=== PATIENT | male | born 1955 | race Caucasian/White ===

== ENCOUNTER 2020-12-25 21:52 | Inpatient (IN) | payer OTHER ==
[~2020-12-25] VITALS: Ht 180.3 cm; Wt 77.3 kg
[2020-12-25] MEDS ORDERED: OMEP20 PO (22:27)
[2020-12-25] MEDS ORDERED: DIAZ10 PO (22:27)
[2020-12-25] MEDS ORDERED: OXYC5 PO (22:27)
[2020-12-25] MEDS ORDERED: QUET100T PO (22:27)
[2020-12-25] MEDS ORDERED: GABA-1201 PO (22:27)
[2020-12-25] MEDS ORDERED: AMLO-257 PO (22:27)
[2020-12-25] MEDS ORDERED: BUSP15 PO (22:27)
[2020-12-25] MEDS ORDERED: TAMS-13 PO (22:27)
[2020-12-25] MEDS ORDERED: LEVO75 PO (22:27)
[2020-12-25 22:43] LABS: COVID AG,FIA SOURCE NASOPHARYNGEAL
[2020-12-25 23:49] LABS: BASOPHILS % (AUTO) 0.5 % (0.0-2.0); EOSINOPHILS % (AUTO) 2.5 % (1.0-6.0); HEMATOCRIT 31.8 % (41-53); HEMOGLOBIN 10.3 g/dL (13.5-17.5); LYMPHOCYTES # (AUTO) 1.5 K/uL (1.0-4.8); LYMPHOCYTES % (AUTO) 13.9 % (22.0-44.0); MEAN CORPUSCULAR HEMOGLOBIN 25.8 pg (26.0-34.0); MEAN CORPUSCULAR HGB CONC 32.4 G/dL (31.0-37.0); MEAN CORPUSCULAR VOLUME 80 fL (80-100); MONOCYTES % (AUTO) 9.1 % (2.0-9.0); PLATELET COUNT (AUTO) 413 K/uL (150-450); RED BLOOD CELL COUNT(AUTO) 3.99 MIL/uL (4.50-5.90); RED CELL DISTRIBUTION WIDTH 17.3 % (11.5-14.5)
[2020-12-25 23:57] LABS: ANION GAP 10 mmol/L (8-16); CALCIUM, TOTAL 9.5 mg/dL (8.8-10.5); CARBON DIOXIDE 27 mmol/L (22-29); CHLORIDE 103 mmol/L (98-107); CREATININE 0.81 mg/dL (0.60-1.30); GLOMERULAR FILTR. RATE CALC > 60 mL/min (>60); GLUCOSE,RANDOM 105 mg/dL (70-110); POTASSIUM 4.1 mmol/L (3.5-5.1); SODIUM SERUM 140 mmol/L (136-145); UREA NITROGEN, BLOOD 20 mg/dL (7-18)
[2020-12-26 00:01] LABS: INR 1.1 (0.9-1.1); PROTHROMBIN TIME 12.1 SEC (9.4-11.6)
[2020-12-26 00:06] LABS: ALANINE AMINOTRANSFERASE 37 U/L (12-78); ALBUMIN 3.1 g/dL (3.4-5.0); ALKALINE PHOSPHATASE 135 U/L (46-116); ASPARTATE AMINOTRANSFERASE 29 U/L (15-37); BILIRUBIN,TOTAL 0.3 mg/dL (0.1-1.0); CREATINE KINASE, TOTAL ONLY 120 U/L (39-308); PHOSPHORUS 3.9 mg/dL (2.5-4.9); TOTAL PROTEIN, SERUM 8.1 g/dL (6.4-8.2)
[2020-12-26 00:31] LABS: FREE T4 (FREE THYROXINE) 1.13 ng/dL (0.76-1.46); THYROID STIMULATING HORMONE 1.45 uIU/mL (0.36-3.74)
[2020-12-26] MEDS ORDERED: LISI40TA9 PO (12:56)
[2020-12-26] MEDS ORDERED: ACET325T51 PO (12:56)
[2020-12-26] MEDS ORDERED: CYCL10TA16 PO (12:56)
[2020-12-26] MEDS ORDERED: DiphenhydrAMINE HCL 25 MG CAPSULE PO ONE (13:00)
[2020-12-26] MEDS ORDERED: NICOTINE 21 MG/24 HOUR PATCH TD ONE (15:00)
[2020-12-26] MEDS ORDERED: LORazepam 2 MG/ML VIAL IVP ONE (15:00)
[2020-12-26] MEDS ORDERED: HYDROCODONE/ACETAMINOPHEN 5-325 MG TABLET PO PRN (16:30)
[2020-12-26] MEDS ORDERED: ALBUTEROL SULFATE 2.5 MG/0.5 ML NEB SOLUTION NEB PRN (16:30)
[2020-12-26] MEDS ORDERED: ONDANSETRON HCL 4 MG/2 ML VIAL IVP PRN (16:30)
[2020-12-26] MEDS ORDERED: 0.9% SODIUM CHLORIDE 10 ML SYRINGE IVP PRN (16:30)
[2020-12-26] MEDS ORDERED: IPRATROPIUM BROMIDE 0.5 MG/2.5 ML NEB SOLUTION NEB PRN (16:30)
[2020-12-26] MEDS ORDERED: THIAMINE 100 MG TABLET PO SCH (17:00)
[2020-12-26 18:13] VITALS: BP 161/101
[2020-12-26] MEDS: MULTIVITAMINS, THERAPEUTIC TABLET PO SCH (18:13)
[2020-12-26] MEDS: FOLIC ACID 1 MG TABLET PO SCH (18:13)
[2020-12-26] MEDS ORDERED: METOPROLOL TARTRATE 25 MG TABLET PO ONE (18:30)
[2020-12-26 19:59] VITALS: BP 130/87
[2020-12-26] MEDS: GABAPENTIN 100 MG CAPSULE PO SCH (20:02)
[2020-12-26] MEDS: BusPIRone HCL 15 MG TABLET PO SCH (20:02)
[2020-12-26 21:00] VITALS: BP 130/87
[2020-12-26] MEDS ORDERED: LORazepam 2 MG TABLET PO PRN (21:30)
[2020-12-26] MEDS ORDERED: LORazepam 2 MG/ML VIAL IM ONE (21:30)
[2020-12-26] MEDS ORDERED: THIAMINE 100 MG/ML 2 ML VIAL IM ONE (22:00)
[2020-12-26] MEDS: 1: MAGNESIUM SULFATE 2 GM, MVI, ADULT NO.1 WITH VIT K 10 ML, THIAMINE 100 MG, FOLIC ACID IV SCH ×5 (22:38)
[2020-12-26 22:45] LABS: APPEARANCE,URINE TURBID (CLEAR); BILIRUBIN,URINE NEGATIVE (NEGATIVE); GLUCOSE, URINE (UA) NEGATIVE (NEGATIVE); KETONES,URINE TRACE mg/dL (NEGATIVE); LEUKOCYTE ESTERASE ,URINE LARGE (NEGATIVE); NITRATE,URINE POSITIVE (NEGATIVE); OCCULT BLOOD,URINE SMALL (NEGATIVE); PROTEIN,URINE TRACE (NEGATIVE)
[2020-12-26 22:55] LABS: AMPHET/METH SCREEN,URINE NEGATIVE (NEGATIVE); BARBITURATE SCREEN, URINE NEGATIVE (NEGATIVE); BENZODIAZEPINES SCREEN,URINE POSITIVE (NEGATIVE); CANNABINOID SCREEN,URINE NEGATIVE (NEGATIVE); COCAINE SCREEN,URINE NEGATIVE (NEGATIVE); METHADONE SCREEN, URINE NEGATIVE (NEGATIVE); OPIATE SCREEN,URINE NEGATIVE (NEGATIVE)
[2020-12-26 23:09] LABS: PHENCYCLIDINE SCREEN,URINE NEGATIVE (NEGATIVE)
[2020-12-26 23:25] LABS: BACTERIA,URINE Moderate /HPF (None Seen); WBC,URINE >100 /HPF (0-5)
[2020-12-26 23:26] LABS: SQUAMOUS EPITHELIAL CELL,UR Rare /LPF (None Seen)
[2020-12-26] MEDS: ACETAMINOPHEN 325 MG TABLET PO PRN (23:33)
[2020-12-27] MEDS ORDERED: LORazepam 2 MG/ML VIAL IVP ONE (00:15)
[2020-12-27] MEDS ORDERED: HALOPERIDOL LACTATE 5 MG/ML VIAL IM ONE (00:15)
[2020-12-27] MEDS ORDERED: DiphenhydrAMINE HCL 50 MG/ML VIAL IVP ONE (00:15)
[2020-12-27 05:00] VITALS: BP 132/89
[2020-12-27 06:00] VITALS: BP 132/89
[2020-12-27] MEDS: LEVOTHYROXINE SODIUM 75 MCG TABLET PO SCH (06:11)
[2020-12-27] MEDS ORDERED: LORazepam 2 MG TABLET PO PRN (07:00)
[2020-12-27 07:02] LABS: EOSINOPHILS % (AUTO) 3.7 % (1.0-6.0); HEMATOCRIT 31.9 % (41-53); HEMOGLOBIN 10.2 g/dL (13.5-17.5); LYMPHOCYTES # (AUTO) 2.4 K/uL (1.0-4.8); LYMPHOCYTES % (AUTO) 27.3 % (22.0-44.0); MEAN CORPUSCULAR HEMOGLOBIN 25.3 pg (26.0-34.0); MEAN CORPUSCULAR HGB CONC 31.9 G/dL (31.0-37.0); MEAN CORPUSCULAR VOLUME 79 fL (80-100); NEUTROPHILS # (AUTO) 5.1 K/uL (1.8-7.7); PLATELET COUNT (AUTO) 425 K/uL (150-450); RED BLOOD CELL COUNT(AUTO) 4.03 MIL/uL (4.50-5.90); RED CELL DISTRIBUTION WIDTH 17.4 % (11.5-14.5)
[2020-12-27 07:31] LABS: ALANINE AMINOTRANSFERASE 29 U/L (12-78); ALBUMIN 2.8 g/dL (3.4-5.0); ALKALINE PHOSPHATASE 123 U/L (46-116); ANION GAP 10 mmol/L (8-16); BILIRUBIN,TOTAL 0.3 mg/dL (0.1-1.0); CALCIUM, TOTAL 9.3 mg/dL (8.8-10.5); CARBON DIOXIDE 24 mmol/L (22-29); CHLORIDE 105 mmol/L (98-107); CREATININE 0.73 mg/dL (0.60-1.30); FREE T4 (FREE THYROXINE) 0.96 ng/dL (0.76-1.46); GLOMERULAR FILTR. RATE CALC > 60 mL/min (>60); GLUCOSE,RANDOM 86 mg/dL (70-110); POTASSIUM 3.8 mmol/L (3.5-5.1); SODIUM SERUM 139 mmol/L (136-145); THYROID STIMULATING HORMONE 3.01 uIU/mL (0.36-3.74); TOTAL PROTEIN, SERUM 7.8 g/dL (6.4-8.2); UREA NITROGEN, BLOOD 13 mg/dL (7-18)
[2020-12-27 07:38] VITALS: BP 128/86
[2020-12-27 07:51] LABS: ASPARTATE AMINOTRANSFERASE 27 U/L (15-37)
[2020-12-27] MEDS: 1: MAGNESIUM SULFATE 2 GM, MVI, ADULT NO.1 WITH VIT K 10 ML, THIAMINE 100 MG, FOLIC ACID IV SCH ×10 (08:56→18:31)
[2020-12-27] MEDS: FOLIC ACID 1 MG TABLET PO SCH (09:13)
[2020-12-27] MEDS: THIAMINE 100 MG TABLET PO SCH (09:13)
[2020-12-27] MEDS: GABAPENTIN 100 MG CAPSULE PO SCH ×3 (09:13→20:29)
[2020-12-27] MEDS: LORazepam 2 MG TABLET PO SCH ×4 (09:13→20:30)
[2020-12-27] MEDS: MULTIVITAMINS, THERAPEUTIC TABLET PO SCH (09:13)
[2020-12-27] MEDS: PANTOPRAZOLE SODIUM 40 MG DR TABLET PO SCH (09:13)
[2020-12-27] MEDS: AmLODIPine BESYLATE 5 MG TABLET PO SCH (09:14)
[2020-12-27] MEDS: VITAMIN B COMP/VIT C/FOLIC ACID CAPSULE PO SCH ×2 (09:14→20:30)
[2020-12-27] MEDS: NICOTINE 21 MG/24 HOUR PATCH TD SCH (09:14)
[2020-12-27] MEDS: BusPIRone HCL 15 MG TABLET PO SCH ×2 (09:14→20:30)
[2020-12-27] MEDS: TAMSULOSIN HCL 0.4 MG CAPSULE PO SCH (09:14)
[2020-12-27] MEDS: CefTRIAXone 1 GM/DEXTROSE 50 ML IV SCH (14:39)
[2020-12-27 15:14] VITALS: BP 142/62
[2020-12-27 19:30] VITALS: BP 111/77
[2020-12-27] MEDS: LORazepam 2 MG/ML VIAL IVP PRN (21:34)
[2020-12-27] MEDS: KETOROLAC TROMETHAMINE 30 MG/ML VIAL IVP PRN (22:07)
[2020-12-28 04:45] VITALS: BP 138/92
[2020-12-28] MEDS: 1: MAGNESIUM SULFATE 2 GM, MVI, ADULT NO.1 WITH VIT K 10 ML, THIAMINE 100 MG, FOLIC ACID IV SCH ×10 (04:52→17:22)
[2020-12-28] MEDS: LEVOTHYROXINE SODIUM 75 MCG TABLET PO SCH (05:32)
[2020-12-28 05:50] LABS: BASOPHILS % (AUTO) 0.8 % (0.0-2.0); EOSINOPHILS % (AUTO) 2.9 % (1.0-6.0); HEMATOCRIT 34.4 % (41-53); HEMOGLOBIN 11.1 g/dL (13.5-17.5); LYMPHOCYTES # (AUTO) 2.2 K/uL (1.0-4.8); LYMPHOCYTES % (AUTO) 26.8 % (22.0-44.0); MEAN CORPUSCULAR HEMOGLOBIN 25.6 pg (26.0-34.0); MEAN CORPUSCULAR HGB CONC 32.3 G/dL (31.0-37.0); MEAN CORPUSCULAR VOLUME 79 fL (80-100); MONOCYTES # (AUTO) 0.8 K/uL (0.1-1.0); MONOCYTES % (AUTO) 9.7 % (2.0-9.0); NEUTROPHILS # (AUTO) 4.8 K/uL (1.8-7.7); NEUTROPHILS % (AUTO) 59.8 % (40.0-70.0); PLATELET COUNT (AUTO) 380 K/uL (150-450); RED BLOOD CELL COUNT(AUTO) 4.34 MIL/uL (4.50-5.90)
[2020-12-28 06:00] LABS: ANION GAP 8 mmol/L (8-16); CALCIUM, TOTAL 9.3 mg/dL (8.8-10.5); CARBON DIOXIDE 27 mmol/L (22-29); CHLORIDE 104 mmol/L (98-107); CREATININE 0.76 mg/dL (0.60-1.30); GLOMERULAR FILTR. RATE CALC > 60 mL/min (>60); GLUCOSE,RANDOM 107 mg/dL (70-110); POTASSIUM 3.9 mmol/L (3.5-5.1); SODIUM SERUM 139 mmol/L (136-145); UREA NITROGEN, BLOOD 11 mg/dL (7-18)
[2020-12-28] MEDS: KETOROLAC TROMETHAMINE 30 MG/ML VIAL IVP PRN ×2 (07:43→20:59)
[2020-12-28] MEDS: TAMSULOSIN HCL 0.4 MG CAPSULE PO SCH (08:36)
[2020-12-28] MEDS: PANTOPRAZOLE SODIUM 40 MG DR TABLET PO SCH (08:36)
[2020-12-28] MEDS: GABAPENTIN 100 MG CAPSULE PO SCH ×3 (08:36→20:25)
[2020-12-28] MEDS: BusPIRone HCL 15 MG TABLET PO SCH ×2 (08:36→20:25)
[2020-12-28] MEDS: THIAMINE 100 MG TABLET PO SCH (08:36)
[2020-12-28] MEDS: AmLODIPine BESYLATE 5 MG TABLET PO SCH (08:36)
[2020-12-28] MEDS: FOLIC ACID 1 MG TABLET PO SCH (08:36)
[2020-12-28] MEDS: VITAMIN B COMP/VIT C/FOLIC ACID CAPSULE PO SCH ×2 (08:36→20:25)
[2020-12-28] MEDS: MULTIVITAMINS, THERAPEUTIC TABLET PO SCH (08:37)
[2020-12-28] MEDS: LORazepam 2 MG TABLET PO SCH ×4 (08:37→20:25)
[2020-12-28] MEDS: NICOTINE 21 MG/24 HOUR PATCH TD SCH ×2 (08:41→08:53)
[2020-12-28] MEDS: ACETAMINOPHEN 325 MG TABLET PO PRN ×2 (10:20→20:26)
[2020-12-28] MEDS: LORazepam 2 MG/ML VIAL IVP PRN ×2 (10:52→23:08)
[2020-12-28 15:53] VITALS: BP 147/98
[2020-12-28] MEDS: CefTRIAXone 1 GM/DEXTROSE 50 ML IV SCH (16:34)
[2020-12-28 19:37] VITALS: BP 127/88
[2020-12-29] MEDS: 1: MAGNESIUM SULFATE 2 GM, MVI, ADULT NO.1 WITH VIT K 10 ML, THIAMINE 100 MG, FOLIC ACID IV SCH ×15 (03:01→22:18)
[2020-12-29] MEDS: KETOROLAC TROMETHAMINE 30 MG/ML VIAL IVP PRN (04:26)
[2020-12-29 05:15] VITALS: BP 152/88
[2020-12-29] MEDS: LEVOTHYROXINE SODIUM 75 MCG TABLET PO SCH (06:01)
[2020-12-29 10:40] VITALS: BP 143/86
[2020-12-29] MEDS: BusPIRone HCL 15 MG TABLET PO SCH ×2 (10:43→19:47)
[2020-12-29] MEDS: THIAMINE 100 MG TABLET PO SCH (10:43)
[2020-12-29] MEDS: VITAMIN B COMP/VIT C/FOLIC ACID CAPSULE PO SCH ×2 (10:43→19:48)
[2020-12-29] MEDS: MULTIVITAMINS, THERAPEUTIC TABLET PO SCH (10:43)
[2020-12-29] MEDS: TAMSULOSIN HCL 0.4 MG CAPSULE PO SCH (10:43)
[2020-12-29] MEDS: PANTOPRAZOLE SODIUM 40 MG DR TABLET PO SCH (10:43)
[2020-12-29] MEDS: FOLIC ACID 1 MG TABLET PO SCH (10:43)
[2020-12-29] MEDS: AmLODIPine BESYLATE 5 MG TABLET PO SCH (10:43)
[2020-12-29] MEDS: GABAPENTIN 100 MG CAPSULE PO SCH ×3 (10:43→19:47)
[2020-12-29] MEDS: LORazepam 1 MG TABLET PO SCH ×4 (10:44→19:47)
[2020-12-29] MEDS: NICOTINE 21 MG/24 HOUR PATCH TD SCH (10:44)
[2020-12-29] MEDS: CefTRIAXone 1 GM/DEXTROSE 50 ML IV SCH (14:10)
[2020-12-29] MEDS ORDERED: *CLINICAL-RX DOSING [ENTER DRUG IN COMMENTS] CLINICAL ONE (20:15)
[2020-12-29 20:40] VITALS: BP 134/85
[2020-12-29] MEDS: CefoTEtan DISOD 1 GM/DEXTROSE 50 ML IV SCH (22:18)
[2020-12-29] MEDS: LORazepam 1 MG TABLET PO PRN (23:14)
[2020-12-30] MEDS: ACETAMINOPHEN 325 MG TABLET PO PRN ×4 (04:29→20:20)
[2020-12-30 04:54] VITALS: BP 154/96
[2020-12-30] MEDS: LEVOTHYROXINE SODIUM 75 MCG TABLET PO SCH (04:58)
[2020-12-30] MEDS: LORazepam 1 MG TABLET PO PRN ×5 (04:58→22:29)
[2020-12-30 07:22] VITALS: BP 139/90
[2020-12-30] MEDS: VITAMIN B COMP/VIT C/FOLIC ACID CAPSULE PO SCH ×2 (08:19→20:19)
[2020-12-30] MEDS: AmLODIPine BESYLATE 5 MG TABLET PO SCH (08:19)
[2020-12-30] MEDS: GABAPENTIN 100 MG CAPSULE PO SCH ×3 (08:19→20:19)
[2020-12-30] MEDS: FOLIC ACID 1 MG TABLET PO SCH (08:20)
[2020-12-30] MEDS: MULTIVITAMINS, THERAPEUTIC TABLET PO SCH (08:20)
[2020-12-30] MEDS: PANTOPRAZOLE SODIUM 40 MG DR TABLET PO SCH (08:20)
[2020-12-30] MEDS: THIAMINE 100 MG TABLET PO SCH (08:20)
[2020-12-30] MEDS: CefoTEtan DISOD 1 GM/DEXTROSE 50 ML IV SCH ×2 (08:21→20:19)
[2020-12-30] MEDS: BusPIRone HCL 15 MG TABLET PO SCH ×2 (08:21→20:19)
[2020-12-30] MEDS: 1: MAGNESIUM SULFATE 2 GM, MVI, ADULT NO.1 WITH VIT K 10 ML, THIAMINE 100 MG, FOLIC ACID IV SCH ×10 (08:24→15:51)
[2020-12-30] MEDS: NICOTINE 21 MG/24 HOUR PATCH TD SCH (08:24)
[2020-12-30] MEDS: TAMSULOSIN HCL 0.4 MG CAPSULE PO SCH (09:10)
[2020-12-30 15:30] VITALS: BP 147/91
[2020-12-30 19:30] VITALS: BP 138/88
[2020-12-30] MEDS: MORPHINE SULFATE 2 MG/ML SYRINGE IVP PRN (22:30)
[2020-12-31] MEDS: MORPHINE SULFATE 2 MG/ML SYRINGE IVP PRN ×4 (02:38→22:37)
[2020-12-31 04:00] VITALS: BP 131/86
[2020-12-31] MEDS: LEVOTHYROXINE SODIUM 75 MCG TABLET PO SCH (06:01)
[2020-12-31 07:25] VITALS: BP 149/93
[2020-12-31] MEDS: GABAPENTIN 100 MG CAPSULE PO SCH ×3 (09:08→19:51)
[2020-12-31] MEDS: BusPIRone HCL 15 MG TABLET PO SCH ×2 (09:08→19:51)
[2020-12-31] MEDS: CefoTEtan DISOD 1 GM/DEXTROSE 50 ML IV SCH ×2 (09:08→19:51)
[2020-12-31] MEDS: MULTIVITAMINS, THERAPEUTIC TABLET PO SCH (09:08)
[2020-12-31] MEDS: NICOTINE 21 MG/24 HOUR PATCH TD SCH (09:08)
[2020-12-31] MEDS: VITAMIN B COMP/VIT C/FOLIC ACID CAPSULE PO SCH ×2 (09:08→19:51)
[2020-12-31] MEDS: FOLIC ACID 1 MG TABLET PO SCH (09:08)
[2020-12-31] MEDS: TAMSULOSIN HCL 0.4 MG CAPSULE PO SCH (09:09)
[2020-12-31] MEDS: AmLODIPine BESYLATE 5 MG TABLET PO SCH (09:09)
[2020-12-31] MEDS: PANTOPRAZOLE SODIUM 40 MG DR TABLET PO SCH (09:09)
[2020-12-31] MEDS: THIAMINE 100 MG TABLET PO SCH (09:09)
[2020-12-31 14:04] LABS: BASOPHILS % (AUTO) 0.6 % (0.0-2.0); EOSINOPHILS % (AUTO) 2.1 % (1.0-6.0); HEMATOCRIT 34.6 % (41-53); HEMOGLOBIN 11.1 g/dL (13.5-17.5); LYMPHOCYTES # (AUTO) 1.5 K/uL (1.0-4.8); LYMPHOCYTES % (AUTO) 15.5 % (22.0-44.0); MEAN CORPUSCULAR HEMOGLOBIN 25.6 pg (26.0-34.0); MEAN CORPUSCULAR HGB CONC 32.1 G/dL (31.0-37.0); MEAN CORPUSCULAR VOLUME 80 fL (80-100); MONOCYTES # (AUTO) 0.9 K/uL (0.1-1.0); MONOCYTES % (AUTO) 8.9 % (2.0-9.0); NEUTROPHILS # (AUTO) 7.1 K/uL (1.8-7.7); NEUTROPHILS % (AUTO) 72.9 % (40.0-70.0); PLATELET COUNT (AUTO) 356 K/uL (150-450); RED BLOOD CELL COUNT(AUTO) 4.34 MIL/uL (4.50-5.90)
[2020-12-31 14:12] LABS: ANION GAP 10 mmol/L (8-16); CALCIUM, TOTAL 9.6 mg/dL (8.8-10.5); CARBON DIOXIDE 25 mmol/L (22-29); CHLORIDE 104 mmol/L (98-107); CREATININE 0.82 mg/dL (0.60-1.30); GLOMERULAR FILTR. RATE CALC > 60 mL/min (>60); GLUCOSE,RANDOM 91 mg/dL (70-110); POTASSIUM 4.1 mmol/L (3.5-5.1); SODIUM SERUM 139 mmol/L (136-145); UREA NITROGEN, BLOOD 5 mg/dL (7-18)
[2020-12-31 14:18] LABS: ALANINE AMINOTRANSFERASE 17 U/L (12-78); ALKALINE PHOSPHATASE 114 U/L (46-116); ASPARTATE AMINOTRANSFERASE 13 U/L (15-37); BILIRUBIN,TOTAL 0.3 mg/dL (0.1-1.0); TOTAL PROTEIN, SERUM 7.9 g/dL (6.4-8.2)
[2020-12-31 15:34] VITALS: BP 100/65
[2020-12-31] MEDS: DOCUSATE SODIUM 100 MG CAPSULE PO PRN (16:08)
[2020-12-31] MEDS: ACETAMINOPHEN 325 MG TABLET PO PRN (16:09)
[2020-12-31 19:45] VITALS: BP 135/89
[2020-12-31] MEDS: LORazepam 2 MG/ML VIAL IVP PRN (19:51)
[2020-12-31] MEDS ORDERED: SODIUM CHLORIDE 0.9% 250 ML IV ONE (20:01)
[2020-12-31 22:42] VITALS: BP 133/85
[2021-01-01] MEDS: MORPHINE SULFATE 2 MG/ML SYRINGE IVP PRN ×5 (02:25→21:01)
[2021-01-01 02:27] VITALS: BP 141/93
[2021-01-01] MEDS: LEVOTHYROXINE SODIUM 75 MCG TABLET PO SCH ×2 (06:01→06:03)
[2021-01-01 07:57] VITALS: BP 151/93
[2021-01-01] MEDS: AmLODIPine BESYLATE 5 MG TABLET PO SCH (08:22)
[2021-01-01] MEDS: VITAMIN B COMP/VIT C/FOLIC ACID CAPSULE PO SCH ×2 (08:22→19:49)
[2021-01-01] MEDS: TAMSULOSIN HCL 0.4 MG CAPSULE PO SCH (08:22)
[2021-01-01] MEDS: FOLIC ACID 1 MG TABLET PO SCH (08:22)
[2021-01-01] MEDS: GABAPENTIN 100 MG CAPSULE PO SCH ×3 (08:22→19:49)
[2021-01-01] MEDS: PANTOPRAZOLE SODIUM 40 MG DR TABLET PO SCH (08:22)
[2021-01-01] MEDS: DOCUSATE SODIUM 100 MG CAPSULE PO PRN ×2 (08:22→19:49)
[2021-01-01] MEDS: THIAMINE 100 MG TABLET PO SCH (08:22)
[2021-01-01] MEDS: MULTIVITAMINS, THERAPEUTIC TABLET PO SCH (08:22)
[2021-01-01] MEDS: BusPIRone HCL 15 MG TABLET PO SCH ×2 (08:23→19:49)
[2021-01-01] MEDS: CefoTEtan DISOD 1 GM/DEXTROSE 50 ML IV SCH ×2 (08:26→20:46)
[2021-01-01] MEDS: NICOTINE 21 MG/24 HOUR PATCH TD SCH (09:00)
[2021-01-01 16:48] VITALS: BP 122/72
[2021-01-01 19:52] VITALS: BP 134/89
[2021-01-01] MEDS: LORazepam 2 MG/ML VIAL IVP PRN (21:01)
[2021-01-02] MEDS: MORPHINE SULFATE 2 MG/ML SYRINGE IVP PRN ×5 (01:54→21:03)
[2021-01-02 05:35] VITALS: BP 105/68
[2021-01-02] MEDS: LEVOTHYROXINE SODIUM 75 MCG TABLET PO SCH (05:47)
[2021-01-02] MEDS: CefoTEtan DISOD 1 GM/DEXTROSE 50 ML IV SCH ×2 (09:00→21:05)
[2021-01-02] MEDS: BusPIRone HCL 15 MG TABLET PO SCH ×2 (09:00→21:03)
[2021-01-02] MEDS: GABAPENTIN 100 MG CAPSULE PO SCH ×3 (10:00→21:02)
[2021-01-02] MEDS: AmLODIPine BESYLATE 5 MG TABLET PO SCH (10:00)
[2021-01-02] MEDS: FOLIC ACID 1 MG TABLET PO SCH (10:00)
[2021-01-02] MEDS: NICOTINE 21 MG/24 HOUR PATCH TD SCH (10:00)
[2021-01-02] MEDS: TAMSULOSIN HCL 0.4 MG CAPSULE PO SCH (10:00)
[2021-01-02] MEDS: MULTIVITAMINS, THERAPEUTIC TABLET PO SCH (10:00)
[2021-01-02] MEDS: THIAMINE 100 MG TABLET PO SCH (10:00)
[2021-01-02] MEDS: PANTOPRAZOLE SODIUM 40 MG DR TABLET PO SCH (10:00)
[2021-01-02] MEDS: VITAMIN B COMP/VIT C/FOLIC ACID CAPSULE PO SCH ×2 (10:00→21:02)
[2021-01-02 10:41] VITALS: BP 125/79
[2021-01-02 16:02] VITALS: BP 97/52
[2021-01-02 20:24] VITALS: BP 143/71
[2021-01-03] MEDS: MORPHINE SULFATE 2 MG/ML SYRINGE IVP PRN ×5 (01:03→20:27)
[2021-01-03 05:34] VITALS: BP 135/69
[2021-01-03] MEDS: LEVOTHYROXINE SODIUM 75 MCG TABLET PO SCH (06:05)
[2021-01-03 08:00] VITALS: BP 138/86
[2021-01-03] MEDS: NICOTINE 21 MG/24 HOUR PATCH TD SCH (09:58)
[2021-01-03] MEDS: CefoTEtan DISOD 1 GM/DEXTROSE 50 ML IV SCH ×2 (09:58→20:26)
[2021-01-03] MEDS: THIAMINE 100 MG TABLET PO SCH (09:59)
[2021-01-03] MEDS: TAMSULOSIN HCL 0.4 MG CAPSULE PO SCH (09:59)
[2021-01-03] MEDS: PANTOPRAZOLE SODIUM 40 MG DR TABLET PO SCH (09:59)
[2021-01-03] MEDS: BusPIRone HCL 15 MG TABLET PO SCH ×2 (09:59→20:26)
[2021-01-03] MEDS: AmLODIPine BESYLATE 5 MG TABLET PO SCH (09:59)
[2021-01-03] MEDS: GABAPENTIN 100 MG CAPSULE PO SCH ×3 (09:59→20:27)
[2021-01-03] MEDS: DOCUSATE SODIUM 100 MG CAPSULE PO PRN (09:59)
[2021-01-03] MEDS: FOLIC ACID 1 MG TABLET PO SCH (09:59)
[2021-01-03] MEDS: MULTIVITAMINS, THERAPEUTIC TABLET PO SCH (09:59)
[2021-01-03] MEDS ORDERED: SODIUM CHLORIDE 0.9% 500 ML IV ONE (10:06)
[2021-01-03 15:42] VITALS: BP 123/78
[2021-01-03 19:27] VITALS: BP 124/85
[2021-01-03] MEDS: SENNA/DOCUSATE SODIUM 8.6-50 MG TABLET PO SCH (20:26)
[2021-01-03] MEDS ORDERED: LORazepam 2 MG/ML VIAL IVP ONE (22:00)
[2021-01-04] MEDS: MORPHINE SULFATE 2 MG/ML SYRINGE IVP PRN ×4 (02:08→15:33)
[2021-01-04 05:08] VITALS: BP 151/90
[2021-01-04] MEDS: LEVOTHYROXINE SODIUM 75 MCG TABLET PO SCH (06:00)
[2021-01-04 06:28] LABS: BASOPHILS % (AUTO) 1.1 % (0.0-2.0); EOSINOPHILS % (AUTO) 4.1 % (1.0-6.0); HEMATOCRIT 31.7 % (41-53); HEMOGLOBIN 10.4 g/dL (13.5-17.5); LYMPHOCYTES # (AUTO) 2.2 K/uL (1.0-4.8); LYMPHOCYTES % (AUTO) 24.1 % (22.0-44.0); MEAN CORPUSCULAR HEMOGLOBIN 26.1 pg (26.0-34.0); MEAN CORPUSCULAR HGB CONC 32.7 G/dL (31.0-37.0); MEAN CORPUSCULAR VOLUME 80 fL (80-100); MONOCYTES # (AUTO) 1.1 K/uL (0.1-1.0); MONOCYTES % (AUTO) 12.3 % (2.0-9.0); NEUTROPHILS # (AUTO) 5.4 K/uL (1.8-7.7); NEUTROPHILS % (AUTO) 58.4 % (40.0-70.0); PLATELET COUNT (AUTO) 392 K/uL (150-450); RED BLOOD CELL COUNT(AUTO) 3.98 MIL/uL (4.50-5.90); RED CELL DISTRIBUTION WIDTH 18.3 % (11.5-14.5)
[2021-01-04 06:43] LABS: ALANINE AMINOTRANSFERASE 19 U/L (12-78); ALBUMIN 2.8 g/dL (3.4-5.0); ALKALINE PHOSPHATASE 92 U/L (46-116); ANION GAP 7 mmol/L (8-16); ASPARTATE AMINOTRANSFERASE 16 U/L (15-37); BILIRUBIN,TOTAL 0.3 mg/dL (0.1-1.0); CALCIUM, TOTAL 9.6 mg/dL (8.8-10.5); CARBON DIOXIDE 27 mmol/L (22-29); CHLORIDE 102 mmol/L (98-107); CREATININE 0.74 mg/dL (0.60-1.30); GLOMERULAR FILTR. RATE CALC > 60 mL/min (>60); GLUCOSE,RANDOM 100 mg/dL (70-110); POTASSIUM 4.2 mmol/L (3.5-5.1); SODIUM SERUM 136 mmol/L (136-145); TOTAL PROTEIN, SERUM 7.8 g/dL (6.4-8.2); UREA NITROGEN, BLOOD 10 mg/dL (7-18)
[2021-01-04 08:17] VITALS: BP 110/73
[2021-01-04] MEDS: CefoTEtan DISOD 1 GM/DEXTROSE 50 ML IV SCH ×2 (09:06→21:00)
[2021-01-04] MEDS: NICOTINE 21 MG/24 HOUR PATCH TD SCH (09:06)
[2021-01-04] MEDS: TAMSULOSIN HCL 0.4 MG CAPSULE PO SCH (09:07)
[2021-01-04] MEDS: AmLODIPine BESYLATE 5 MG TABLET PO SCH (09:07)
[2021-01-04] MEDS: FOLIC ACID 1 MG TABLET PO SCH (09:07)
[2021-01-04] MEDS: MULTIVITAMINS, THERAPEUTIC TABLET PO SCH (09:07)
[2021-01-04] MEDS: BusPIRone HCL 15 MG TABLET PO SCH ×2 (09:07→21:03)
[2021-01-04] MEDS: SENNA/DOCUSATE SODIUM 8.6-50 MG TABLET PO SCH ×2 (09:07→21:03)
[2021-01-04] MEDS: GABAPENTIN 100 MG CAPSULE PO SCH ×3 (09:07→21:03)
[2021-01-04] MEDS: PANTOPRAZOLE SODIUM 40 MG DR TABLET PO SCH (09:07)
[2021-01-04] MEDS: THIAMINE 100 MG TABLET PO SCH (09:07)
[2021-01-04] MEDS: QUEtiapine FUMARATE 100 MG TABLET PO SCH (09:20)
[2021-01-04 15:12] VITALS: BP 115/76
[2021-01-04] MEDS: QUEtiapine FUMARATE 300 MG TABLET PO SCH (21:03)
[2021-01-04 21:12] VITALS: BP 130/78
[2021-01-05] MEDS: MORPHINE SULFATE 2 MG/ML SYRINGE IVP PRN ×2 (03:01→10:30)
[2021-01-05 03:41] VITALS: BP 123/71
[2021-01-05 06:15] LABS: BASOPHILS % (AUTO) 0.8 % (0.0-2.0); EOSINOPHILS % (AUTO) 4.7 % (1.0-6.0); HEMATOCRIT 32.2 % (41-53); HEMOGLOBIN 10.2 g/dL (13.5-17.5); LYMPHOCYTES % (AUTO) 24.9 % (22.0-44.0); MEAN CORPUSCULAR HEMOGLOBIN 25.5 pg (26.0-34.0); MEAN CORPUSCULAR HGB CONC 31.6 G/dL (31.0-37.0); MEAN CORPUSCULAR VOLUME 81 fL (80-100); MONOCYTES # (AUTO) 1.1 K/uL (0.1-1.0); MONOCYTES % (AUTO) 14.2 % (2.0-9.0); NEUTROPHILS # (AUTO) 4.5 K/uL (1.8-7.7); NEUTROPHILS % (AUTO) 55.4 % (40.0-70.0); PLATELET COUNT (AUTO) 323 K/uL (150-450); RED BLOOD CELL COUNT(AUTO) 3.99 MIL/uL (4.50-5.90); RED CELL DISTRIBUTION WIDTH 18.3 % (11.5-14.5)
[2021-01-05 06:36] LABS: ALANINE AMINOTRANSFERASE 18 U/L (12-78); ALBUMIN 2.7 g/dL (3.4-5.0); ALKALINE PHOSPHATASE 86 U/L (46-116); ANION GAP 8 mmol/L (8-16); ASPARTATE AMINOTRANSFERASE 13 U/L (15-37); BILIRUBIN,TOTAL 0.2 mg/dL (0.1-1.0); CALCIUM, TOTAL 9.5 mg/dL (8.8-10.5); CARBON DIOXIDE 28 mmol/L (22-29); CHLORIDE 102 mmol/L (98-107); CREATININE 0.85 mg/dL (0.60-1.30); GLOMERULAR FILTR. RATE CALC > 60 mL/min (>60); GLUCOSE,RANDOM 130 mg/dL (70-110); POTASSIUM 3.9 mmol/L (3.5-5.1); SODIUM SERUM 138 mmol/L (136-145); TOTAL PROTEIN, SERUM 7.6 g/dL (6.4-8.2); UREA NITROGEN, BLOOD 15 mg/dL (7-18)
[2021-01-05] MEDS: LEVOTHYROXINE SODIUM 75 MCG TABLET PO SCH (06:36)
[2021-01-05] MEDS: CefoTEtan DISOD 1 GM/DEXTROSE 50 ML IV SCH ×2 (08:41→20:16)
[2021-01-05 10:37] VITALS: BP 131/78
[2021-01-05] MEDS: TAMSULOSIN HCL 0.4 MG CAPSULE PO SCH (11:00)
[2021-01-05] MEDS: QUEtiapine FUMARATE 100 MG TABLET PO SCH (11:00)
[2021-01-05] MEDS: AmLODIPine BESYLATE 5 MG TABLET PO SCH (11:00)
[2021-01-05] MEDS: BusPIRone HCL 15 MG TABLET PO SCH ×2 (11:00→20:17)
[2021-01-05] MEDS: FOLIC ACID 1 MG TABLET PO SCH (11:00)
[2021-01-05] MEDS: MULTIVITAMINS, THERAPEUTIC TABLET PO SCH (11:00)
[2021-01-05] MEDS: THIAMINE 100 MG TABLET PO SCH (11:00)
[2021-01-05] MEDS: NICOTINE 21 MG/24 HOUR PATCH TD SCH (11:00)
[2021-01-05] MEDS: PANTOPRAZOLE SODIUM 40 MG DR TABLET PO SCH (11:00)
[2021-01-05] MEDS: GABAPENTIN 100 MG CAPSULE PO SCH ×3 (11:00→20:17)
[2021-01-05] MEDS: SENNA/DOCUSATE SODIUM 8.6-50 MG TABLET PO SCH ×2 (11:00→21:00)
[2021-01-05 15:07] VITALS: BP 126/64
[2021-01-05] MEDS: QUEtiapine FUMARATE 300 MG TABLET PO SCH (20:17)
[2021-01-05 20:30] VITALS: BP 133/79
[2021-01-06] MEDS: ACETAMINOPHEN 325 MG TABLET PO PRN ×4 (02:37→20:31)
[2021-01-06 04:56] VITALS: BP 147/88
[2021-01-06] MEDS: LEVOTHYROXINE SODIUM 75 MCG TABLET PO SCH (05:57)
[2021-01-06 07:35] LABS: EOSINOPHILS % (AUTO) 4.1 % (1.0-6.0); HEMATOCRIT 30.9 % (41-53); HEMOGLOBIN 9.9 g/dL (13.5-17.5); LYMPHOCYTES # (AUTO) 2.2 K/uL (1.0-4.8); LYMPHOCYTES % (AUTO) 24.5 % (22.0-44.0); MEAN CORPUSCULAR HEMOGLOBIN 25.5 pg (26.0-34.0); MEAN CORPUSCULAR HGB CONC 32.1 G/dL (31.0-37.0); MEAN CORPUSCULAR VOLUME 79 fL (80-100); MONOCYTES # (AUTO) 1.2 K/uL (0.1-1.0); MONOCYTES % (AUTO) 13.1 % (2.0-9.0); NEUTROPHILS # (AUTO) 5.1 K/uL (1.8-7.7); NEUTROPHILS % (AUTO) 57.3 % (40.0-70.0); PLATELET COUNT (AUTO) 332 K/uL (150-450); RED CELL DISTRIBUTION WIDTH 18.1 % (11.5-14.5)
[2021-01-06 07:52] LABS: ALANINE AMINOTRANSFERASE 18 U/L (12-78); ALBUMIN 2.6 g/dL (3.4-5.0); ALKALINE PHOSPHATASE 88 U/L (46-116); ANION GAP 8 mmol/L (8-16); ASPARTATE AMINOTRANSFERASE 17 U/L (15-37); BILIRUBIN,TOTAL 0.2 mg/dL (0.1-1.0); CALCIUM, TOTAL 9.4 mg/dL (8.8-10.5); CARBON DIOXIDE 28 mmol/L (22-29); CHLORIDE 103 mmol/L (98-107); CREATININE 0.86 mg/dL (0.60-1.30); GLOMERULAR FILTR. RATE CALC > 60 mL/min (>60); GLUCOSE,RANDOM 111 mg/dL (70-110); POTASSIUM 4.1 mmol/L (3.5-5.1); SODIUM SERUM 139 mmol/L (136-145); TOTAL PROTEIN, SERUM 7.4 g/dL (6.4-8.2); UREA NITROGEN, BLOOD 17 mg/dL (7-18)
[2021-01-06] MEDS: NICOTINE 21 MG/24 HOUR PATCH TD SCH (12:37)
[2021-01-06] MEDS: TAMSULOSIN HCL 0.4 MG CAPSULE PO SCH (12:38)
[2021-01-06] MEDS: QUEtiapine FUMARATE 100 MG TABLET PO SCH (12:38)
[2021-01-06] MEDS: PANTOPRAZOLE SODIUM 40 MG DR TABLET PO SCH (12:38)
[2021-01-06] MEDS: THIAMINE 100 MG TABLET PO SCH (12:38)
[2021-01-06] MEDS: SENNA/DOCUSATE SODIUM 8.6-50 MG TABLET PO SCH ×2 (12:38→20:31)
[2021-01-06] MEDS: CefoTEtan DISOD 1 GM/DEXTROSE 50 ML IV SCH ×2 (12:38→20:30)
[2021-01-06] MEDS: GABAPENTIN 100 MG CAPSULE PO SCH ×3 (12:38→20:31)
[2021-01-06] MEDS: FOLIC ACID 1 MG TABLET PO SCH (12:38)
[2021-01-06] MEDS: BusPIRone HCL 15 MG TABLET PO SCH ×2 (12:38→20:30)
[2021-01-06] MEDS: MULTIVITAMINS, THERAPEUTIC TABLET PO SCH (12:38)
[2021-01-06] MEDS: AmLODIPine BESYLATE 5 MG TABLET PO SCH (12:39)
[2021-01-06 16:01] VITALS: BP 125/80
[2021-01-06] MEDS ORDERED: KETOROLAC TROMETHAMINE 15 MG/ML VIAL IVP ONE (18:30)
[2021-01-06 19:30] VITALS: BP 133/82
[2021-01-06] MEDS: QUEtiapine FUMARATE 300 MG TABLET PO SCH (20:31)
[2021-01-07] MEDS: KETOROLAC TROMETHAMINE 30 MG/ML VIAL IVP PRN ×2 (02:26→09:05)
[2021-01-07 03:55] VITALS: BP 128/78
[2021-01-07] MEDS: LEVOTHYROXINE SODIUM 75 MCG TABLET PO SCH (05:55)
[2021-01-07 06:25] LABS: BASOPHILS % (AUTO) 1.1 % (0.0-2.0); EOSINOPHILS % (AUTO) 5.7 % (1.0-6.0); HEMATOCRIT 29.8 % (41-53); HEMOGLOBIN 9.8 g/dL (13.5-17.5); LYMPHOCYTES # (AUTO) 1.9 K/uL (1.0-4.8); LYMPHOCYTES % (AUTO) 25.8 % (22.0-44.0); MEAN CORPUSCULAR HEMOGLOBIN 25.8 pg (26.0-34.0); MEAN CORPUSCULAR HGB CONC 32.8 G/dL (31.0-37.0); MEAN CORPUSCULAR VOLUME 79 fL (80-100); MONOCYTES % (AUTO) 13.3 % (2.0-9.0); NEUTROPHILS % (AUTO) 54.1 % (40.0-70.0); PLATELET COUNT (AUTO) 347 K/uL (150-450); RED BLOOD CELL COUNT(AUTO) 3.78 MIL/uL (4.50-5.90); RED CELL DISTRIBUTION WIDTH 18.4 % (11.5-14.5)
[2021-01-07 07:13] LABS: ALANINE AMINOTRANSFERASE 23 U/L (12-78); ALBUMIN 2.5 g/dL (3.4-5.0); ALKALINE PHOSPHATASE 84 U/L (46-116); ANION GAP 9 mmol/L (8-16); ASPARTATE AMINOTRANSFERASE 18 U/L (15-37); BILIRUBIN,TOTAL 0.2 mg/dL (0.1-1.0); CALCIUM, TOTAL 9.5 mg/dL (8.8-10.5); CARBON DIOXIDE 27 mmol/L (22-29); CHLORIDE 103 mmol/L (98-107); CREATININE 1.03 mg/dL (0.60-1.30); GLOMERULAR FILTR. RATE CALC > 60 mL/min (>60); GLUCOSE,RANDOM 134 mg/dL (70-110); POTASSIUM 4.1 mmol/L (3.5-5.1); SODIUM SERUM 139 mmol/L (136-145); TOTAL PROTEIN, SERUM 7.2 g/dL (6.4-8.2); UREA NITROGEN, BLOOD 24 mg/dL (7-18)
[2021-01-07 08:47] VITALS: BP 108/71
[2021-01-07] MEDS: AmLODIPine BESYLATE 5 MG TABLET PO SCH (08:54)
[2021-01-07] MEDS: TAMSULOSIN HCL 0.4 MG CAPSULE PO SCH (08:54)
[2021-01-07] MEDS: FOLIC ACID 1 MG TABLET PO SCH (08:54)
[2021-01-07] MEDS: BusPIRone HCL 15 MG TABLET PO SCH ×2 (08:55→20:30)
[2021-01-07] MEDS: PANTOPRAZOLE SODIUM 40 MG DR TABLET PO SCH (08:55)
[2021-01-07] MEDS: QUEtiapine FUMARATE 100 MG TABLET PO SCH (08:56)
[2021-01-07] MEDS: MULTIVITAMINS, THERAPEUTIC TABLET PO SCH (08:56)
[2021-01-07] MEDS: SENNA/DOCUSATE SODIUM 8.6-50 MG TABLET PO SCH ×2 (08:56→20:30)
[2021-01-07] MEDS: THIAMINE 100 MG TABLET PO SCH (08:56)
[2021-01-07] MEDS: GABAPENTIN 100 MG CAPSULE PO SCH ×3 (08:57→20:29)
[2021-01-07] MEDS: NICOTINE 21 MG/24 HOUR PATCH TD SCH (08:57)
[2021-01-07] MEDS: CefoTEtan DISOD 1 GM/DEXTROSE 50 ML IV SCH (08:57)
[2021-01-07 15:05] VITALS: BP 124/81
[2021-01-07] MEDS: TraMADol HCL 50 MG TABLET PO PRN (15:22)
[2021-01-07] MEDS: ACETAMINOPHEN 325 MG TABLET PO PRN ×2 (16:39→20:30)
[2021-01-07 19:40] VITALS: BP 125/82
[2021-01-07] MEDS: QUEtiapine FUMARATE 300 MG TABLET PO SCH (20:29)
[2021-01-08] MEDS: TraMADol HCL 50 MG TABLET PO PRN ×3 (02:52→18:45)
[2021-01-08 04:35] VITALS: BP 132/74
[2021-01-08] MEDS: LEVOTHYROXINE SODIUM 75 MCG TABLET PO SCH (05:52)
[2021-01-08] MEDS: ACETAMINOPHEN 325 MG TABLET PO PRN ×4 (05:52→22:38)
[2021-01-08 07:23] VITALS: BP 128/76
[2021-01-08] MEDS: AmLODIPine BESYLATE 5 MG TABLET PO SCH (09:10)
[2021-01-08] MEDS: SENNA/DOCUSATE SODIUM 8.6-50 MG TABLET PO SCH ×2 (09:10→20:31)
[2021-01-08] MEDS: THIAMINE 100 MG TABLET PO SCH (09:10)
[2021-01-08] MEDS: NICOTINE 21 MG/24 HOUR PATCH TD SCH (09:10)
[2021-01-08] MEDS: BusPIRone HCL 15 MG TABLET PO SCH ×2 (09:10→20:31)
[2021-01-08] MEDS: QUEtiapine FUMARATE 100 MG TABLET PO SCH (09:10)
[2021-01-08] MEDS: MULTIVITAMINS, THERAPEUTIC TABLET PO SCH (09:10)
[2021-01-08] MEDS: FOLIC ACID 1 MG TABLET PO SCH (09:10)
[2021-01-08] MEDS: PANTOPRAZOLE SODIUM 40 MG DR TABLET PO SCH (09:10)
[2021-01-08] MEDS: GABAPENTIN 100 MG CAPSULE PO SCH ×3 (09:10→20:31)
[2021-01-08] MEDS: TAMSULOSIN HCL 0.4 MG CAPSULE PO SCH (09:10)
[2021-01-08 15:06] VITALS: BP 134/78
[2021-01-08] MEDS: QUEtiapine FUMARATE 300 MG TABLET PO SCH (20:31)
[2021-01-08 20:39] VITALS: BP 119/68
[2021-01-09 05:20] VITALS: BP 128/90
[2021-01-09] MEDS: TraMADol HCL 50 MG TABLET PO PRN ×3 (05:25→23:23)
[2021-01-09] MEDS: LEVOTHYROXINE SODIUM 75 MCG TABLET PO SCH (05:25)
[2021-01-09] MEDS: BusPIRone HCL 15 MG TABLET PO SCH ×2 (08:06→20:13)
[2021-01-09] MEDS: FOLIC ACID 1 MG TABLET PO SCH (08:07)
[2021-01-09] MEDS: GABAPENTIN 100 MG CAPSULE PO SCH ×3 (08:07→20:13)
[2021-01-09] MEDS: AmLODIPine BESYLATE 5 MG TABLET PO SCH (08:07)
[2021-01-09] MEDS: TAMSULOSIN HCL 0.4 MG CAPSULE PO SCH (08:07)
[2021-01-09] MEDS: SENNA/DOCUSATE SODIUM 8.6-50 MG TABLET PO SCH ×2 (08:08→20:13)
[2021-01-09] MEDS: THIAMINE 100 MG TABLET PO SCH (08:08)
[2021-01-09] MEDS: PANTOPRAZOLE SODIUM 40 MG DR TABLET PO SCH (08:08)
[2021-01-09] MEDS: QUEtiapine FUMARATE 100 MG TABLET PO SCH (08:08)
[2021-01-09] MEDS: MULTIVITAMINS, THERAPEUTIC TABLET PO SCH (08:08)
[2021-01-09] MEDS: NICOTINE 21 MG/24 HOUR PATCH TD SCH (08:09)
[2021-01-09] MEDS: ACETAMINOPHEN 325 MG TABLET PO PRN (08:24)
[2021-01-09 08:25] VITALS: BP 136/87
[2021-01-09 16:08] VITALS: BP 124/72
[2021-01-09] MEDS: QUEtiapine FUMARATE 200 MG TABLET PO SCH (19:02)
[2021-01-09 20:11] VITALS: BP 112/62
[2021-01-10 04:45] VITALS: BP 117/78
[2021-01-10] MEDS: ACETAMINOPHEN 325 MG TABLET PO PRN ×3 (05:28→18:50)
[2021-01-10] MEDS: LEVOTHYROXINE SODIUM 75 MCG TABLET PO SCH (06:07)
[2021-01-10 07:54] VITALS: BP 93/64
[2021-01-10] MEDS: NICOTINE 21 MG/24 HOUR PATCH TD SCH (07:58)
[2021-01-10] MEDS: TraMADol HCL 50 MG TABLET PO PRN ×2 (07:59→15:37)
[2021-01-10] MEDS: MULTIVITAMINS, THERAPEUTIC TABLET PO SCH (08:00)
[2021-01-10] MEDS: THIAMINE 100 MG TABLET PO SCH (08:00)
[2021-01-10] MEDS: SENNA/DOCUSATE SODIUM 8.6-50 MG TABLET PO SCH ×2 (08:00→19:40)
[2021-01-10] MEDS: PANTOPRAZOLE SODIUM 40 MG DR TABLET PO SCH (08:00)
[2021-01-10] MEDS: QUEtiapine FUMARATE 100 MG TABLET PO SCH (08:00)
[2021-01-10] MEDS: GABAPENTIN 100 MG CAPSULE PO SCH ×3 (08:01→19:40)
[2021-01-10] MEDS: BusPIRone HCL 15 MG TABLET PO SCH ×2 (08:01→19:40)
[2021-01-10] MEDS: FOLIC ACID 1 MG TABLET PO SCH (08:01)
[2021-01-10] MEDS: TAMSULOSIN HCL 0.4 MG CAPSULE PO SCH (08:01)
[2021-01-10] MEDS: AmLODIPine BESYLATE 5 MG TABLET PO SCH (08:15)
[2021-01-10 08:18] VITALS: BP 127/83
[2021-01-10 15:57] VITALS: BP 100/63
[2021-01-10 19:40] VITALS: BP 113/78
[2021-01-10] MEDS: DOCUSATE SODIUM 100 MG CAPSULE PO PRN (19:40)
[2021-01-10] MEDS: QUEtiapine FUMARATE 200 MG TABLET PO SCH (19:40)
[2021-01-11] MEDS: TraMADol HCL 50 MG TABLET PO PRN ×3 (00:45→20:02)
[2021-01-11 05:32] VITALS: BP 110/74
[2021-01-11] MEDS: LEVOTHYROXINE SODIUM 75 MCG TABLET PO SCH (06:16)
[2021-01-11 07:53] VITALS: BP 115/79
[2021-01-11] MEDS: SENNA/DOCUSATE SODIUM 8.6-50 MG TABLET PO SCH ×2 (08:17→20:01)
[2021-01-11] MEDS: NICOTINE 21 MG/24 HOUR PATCH TD SCH (08:17)
[2021-01-11] MEDS: QUEtiapine FUMARATE 100 MG TABLET PO SCH (08:17)
[2021-01-11] MEDS: BusPIRone HCL 15 MG TABLET PO SCH ×2 (08:17→20:01)
[2021-01-11] MEDS: THIAMINE 100 MG TABLET PO SCH (08:17)
[2021-01-11] MEDS: MULTIVITAMINS, THERAPEUTIC TABLET PO SCH (08:17)
[2021-01-11] MEDS: AmLODIPine BESYLATE 5 MG TABLET PO SCH (08:17)
[2021-01-11] MEDS: TAMSULOSIN HCL 0.4 MG CAPSULE PO SCH (08:17)
[2021-01-11] MEDS: GABAPENTIN 100 MG CAPSULE PO SCH ×3 (08:17→20:01)
[2021-01-11] MEDS: FOLIC ACID 1 MG TABLET PO SCH (08:17)
[2021-01-11] MEDS: PANTOPRAZOLE SODIUM 40 MG DR TABLET PO SCH (08:17)
[2021-01-11] MEDS: ACETAMINOPHEN 325 MG TABLET PO PRN (16:37)
[2021-01-11 16:45] VITALS: BP 126/81
[2021-01-11 19:58] VITALS: BP 121/76
[2021-01-11] MEDS: QUEtiapine FUMARATE 200 MG TABLET PO SCH (20:00)
[2021-01-12 05:31] VITALS: BP 116/72
[2021-01-12] MEDS: LEVOTHYROXINE SODIUM 75 MCG TABLET PO SCH (05:42)
[2021-01-12 07:43] VITALS: BP 126/80
[2021-01-12] MEDS: FOLIC ACID 1 MG TABLET PO SCH (08:35)
[2021-01-12] MEDS: BusPIRone HCL 15 MG TABLET PO SCH ×2 (08:35→20:14)
[2021-01-12] MEDS: MULTIVITAMINS, THERAPEUTIC TABLET PO SCH (08:35)
[2021-01-12] MEDS: SENNA/DOCUSATE SODIUM 8.6-50 MG TABLET PO SCH ×2 (08:35→20:14)
[2021-01-12] MEDS: QUEtiapine FUMARATE 100 MG TABLET PO SCH (08:35)
[2021-01-12] MEDS: TAMSULOSIN HCL 0.4 MG CAPSULE PO SCH (08:35)
[2021-01-12] MEDS: THIAMINE 100 MG TABLET PO SCH (08:35)
[2021-01-12] MEDS: AmLODIPine BESYLATE 5 MG TABLET PO SCH (08:35)
[2021-01-12] MEDS: PANTOPRAZOLE SODIUM 40 MG DR TABLET PO SCH (08:35)
[2021-01-12] MEDS: GABAPENTIN 100 MG CAPSULE PO SCH ×3 (08:35→20:14)
[2021-01-12] MEDS: NICOTINE 21 MG/24 HOUR PATCH TD SCH (08:36)
[2021-01-12] MEDS: TraMADol HCL 50 MG TABLET PO PRN ×2 (08:37→16:42)
[2021-01-12 15:41] VITALS: BP 113/48
[2021-01-12 19:27] VITALS: BP 109/57
[2021-01-12] MEDS: QUEtiapine FUMARATE 200 MG TABLET PO SCH (20:14)
[2021-01-13 04:30] VITALS: BP 129/86
[2021-01-13] MEDS: LEVOTHYROXINE SODIUM 75 MCG TABLET PO SCH (06:31)
[2021-01-13] MEDS: SENNA/DOCUSATE SODIUM 8.6-50 MG TABLET PO SCH ×2 (08:24→20:17)
[2021-01-13] MEDS: FOLIC ACID 1 MG TABLET PO SCH (08:25)
[2021-01-13] MEDS: DOCUSATE SODIUM 100 MG CAPSULE PO PRN (08:25)
[2021-01-13] MEDS: AmLODIPine BESYLATE 5 MG TABLET PO SCH (08:26)
[2021-01-13] MEDS: BusPIRone HCL 15 MG TABLET PO SCH ×2 (08:26→20:17)
[2021-01-13] MEDS: GABAPENTIN 100 MG CAPSULE PO SCH ×3 (08:26→20:17)
[2021-01-13 08:27] VITALS: BP 140/85
[2021-01-13] MEDS: QUEtiapine FUMARATE 100 MG TABLET PO SCH (08:27)
[2021-01-13] MEDS: MULTIVITAMINS, THERAPEUTIC TABLET PO SCH (08:27)
[2021-01-13] MEDS: PANTOPRAZOLE SODIUM 40 MG DR TABLET PO SCH (08:27)
[2021-01-13] MEDS: THIAMINE 100 MG TABLET PO SCH (08:27)
[2021-01-13] MEDS: NICOTINE 21 MG/24 HOUR PATCH TD SCH (08:28)
[2021-01-13] MEDS: TAMSULOSIN HCL 0.4 MG CAPSULE PO SCH (08:28)
[2021-01-13] MEDS: TraMADol HCL 50 MG TABLET PO PRN ×2 (08:33→16:27)
[2021-01-13] MEDS: ACETAMINOPHEN 325 MG TABLET PO PRN (14:58)
[2021-01-13 20:15] VITALS: BP 102/65
[2021-01-13] MEDS: QUEtiapine FUMARATE 200 MG TABLET PO SCH (20:16)
[2021-01-14 05:36] VITALS: BP 130/83
[2021-01-14] MEDS: LEVOTHYROXINE SODIUM 75 MCG TABLET PO SCH (05:44)
[2021-01-14] MEDS: TraMADol HCL 50 MG TABLET PO PRN ×3 (05:45→22:44)
[2021-01-14] MEDS: THIAMINE 100 MG TABLET PO SCH (08:17)
[2021-01-14] MEDS: AmLODIPine BESYLATE 5 MG TABLET PO SCH (08:18)
[2021-01-14] MEDS: MULTIVITAMINS, THERAPEUTIC TABLET PO SCH (08:18)
[2021-01-14] MEDS: FOLIC ACID 1 MG TABLET PO SCH (08:18)
[2021-01-14] MEDS: PANTOPRAZOLE SODIUM 40 MG DR TABLET PO SCH (08:18)
[2021-01-14] MEDS: TAMSULOSIN HCL 0.4 MG CAPSULE PO SCH (08:18)
[2021-01-14] MEDS: GABAPENTIN 100 MG CAPSULE PO SCH ×3 (08:19→20:57)
[2021-01-14] MEDS: SENNA/DOCUSATE SODIUM 8.6-50 MG TABLET PO SCH ×2 (08:19→20:57)
[2021-01-14] MEDS: BusPIRone HCL 15 MG TABLET PO SCH ×2 (08:19→20:58)
[2021-01-14 08:20] VITALS: BP 142/88
[2021-01-14] MEDS: NICOTINE 21 MG/24 HOUR PATCH TD SCH (08:21)
[2021-01-14] MEDS: QUEtiapine FUMARATE 100 MG TABLET PO SCH (08:24)
[2021-01-14] MEDS: ACETAMINOPHEN 325 MG TABLET PO PRN ×2 (08:31→23:40)
[2021-01-14 15:57] VITALS: BP 135/81
[2021-01-14] MEDS: QUEtiapine FUMARATE 200 MG TABLET PO SCH (20:57)
[2021-01-15 04:00] VITALS: BP 138/80
[2021-01-15] MEDS: LEVOTHYROXINE SODIUM 75 MCG TABLET PO SCH (06:20)
[2021-01-15] MEDS: GABAPENTIN 100 MG CAPSULE PO SCH ×3 (08:21→20:14)
[2021-01-15] MEDS: TraMADol HCL 50 MG TABLET PO PRN ×2 (08:21→16:32)
[2021-01-15] MEDS: SENNA/DOCUSATE SODIUM 8.6-50 MG TABLET PO SCH ×2 (08:21→20:14)
[2021-01-15] MEDS: BusPIRone HCL 15 MG TABLET PO SCH ×2 (08:21→20:14)
[2021-01-15] MEDS: FOLIC ACID 1 MG TABLET PO SCH (08:22)
[2021-01-15] MEDS: PANTOPRAZOLE SODIUM 40 MG DR TABLET PO SCH (08:22)
[2021-01-15] MEDS: NICOTINE 21 MG/24 HOUR PATCH TD SCH (08:22)
[2021-01-15] MEDS: MULTIVITAMINS, THERAPEUTIC TABLET PO SCH (08:22)
[2021-01-15] MEDS: TAMSULOSIN HCL 0.4 MG CAPSULE PO SCH (08:22)
[2021-01-15] MEDS: QUEtiapine FUMARATE 100 MG TABLET PO SCH (08:22)
[2021-01-15] MEDS: AmLODIPine BESYLATE 5 MG TABLET PO SCH (08:22)
[2021-01-15] MEDS: THIAMINE 100 MG TABLET PO SCH (08:22)
[2021-01-15 08:52] VITALS: BP 116/77
[2021-01-15] MEDS: ACETAMINOPHEN 325 MG TABLET PO PRN ×2 (11:05→20:14)
[2021-01-15 15:43] VITALS: BP 96/59
[2021-01-15 19:58] VITALS: BP 130/81
[2021-01-15] MEDS: QUEtiapine FUMARATE 200 MG TABLET PO SCH (20:13)
[2021-01-16 05:15] VITALS: BP 134/80
[2021-01-16] MEDS: LEVOTHYROXINE SODIUM 75 MCG TABLET PO SCH (05:36)
[2021-01-16] MEDS: TraMADol HCL 50 MG TABLET PO PRN ×2 (05:37→13:42)
[2021-01-16 08:20] VITALS: BP 126/91
[2021-01-16] MEDS: NICOTINE 21 MG/24 HOUR PATCH TD SCH ×2 (09:00→09:40)
[2021-01-16] MEDS: BusPIRone HCL 15 MG TABLET PO SCH ×2 (09:40→20:07)
[2021-01-16] MEDS: ACETAMINOPHEN 325 MG TABLET PO PRN ×2 (09:40→16:12)
[2021-01-16] MEDS: MULTIVITAMINS, THERAPEUTIC TABLET PO SCH (09:40)
[2021-01-16] MEDS: GABAPENTIN 100 MG CAPSULE PO SCH ×3 (09:40→20:06)
[2021-01-16] MEDS: FOLIC ACID 1 MG TABLET PO SCH (09:40)
[2021-01-16] MEDS: THIAMINE 100 MG TABLET PO SCH (09:40)
[2021-01-16] MEDS: AmLODIPine BESYLATE 5 MG TABLET PO SCH (09:40)
[2021-01-16] MEDS: PANTOPRAZOLE SODIUM 40 MG DR TABLET PO SCH (09:41)
[2021-01-16] MEDS: TAMSULOSIN HCL 0.4 MG CAPSULE PO SCH (09:41)
[2021-01-16] MEDS: QUEtiapine FUMARATE 100 MG TABLET PO SCH (09:41)
[2021-01-16] MEDS: SENNA/DOCUSATE SODIUM 8.6-50 MG TABLET PO SCH ×2 (09:41→20:07)
[2021-01-16 11:32] LABS: EOSINOPHILS % (AUTO) 3.6 % (1.0-6.0); HEMATOCRIT 31.6 % (41-53); HEMOGLOBIN 10.3 g/dL (13.5-17.5); LYMPHOCYTES # (AUTO) 1.5 K/uL (1.0-4.8); LYMPHOCYTES % (AUTO) 21.2 % (22.0-44.0); MEAN CORPUSCULAR HEMOGLOBIN 25.1 pg (26.0-34.0); MEAN CORPUSCULAR HGB CONC 32.6 G/dL (31.0-37.0); MEAN CORPUSCULAR VOLUME 77 fL (80-100); MONOCYTES # (AUTO) 0.7 K/uL (0.1-1.0); MONOCYTES % (AUTO) 10.5 % (2.0-9.0); NEUTROPHILS # (AUTO) 4.5 K/uL (1.8-7.7); NEUTROPHILS % (AUTO) 63.7 % (40.0-70.0); PLATELET COUNT (AUTO) 392 K/uL (150-450); RED CELL DISTRIBUTION WIDTH 17.3 % (11.5-14.5)
[2021-01-16 12:01] LABS: ANION GAP 7 mmol/L (8-16); CALCIUM, TOTAL 9.8 mg/dL (8.8-10.5); CARBON DIOXIDE 28 mmol/L (22-29); CHLORIDE 101 mmol/L (98-107); CREATININE 0.71 mg/dL (0.60-1.30); GLOMERULAR FILTR. RATE CALC > 60 mL/min (>60); GLUCOSE,RANDOM 96 mg/dL (70-110); POTASSIUM 4.2 mmol/L (3.5-5.1); SODIUM SERUM 136 mmol/L (136-145); UREA NITROGEN, BLOOD 14 mg/dL (7-18)
[2021-01-16 16:14] VITALS: BP 118/79
[2021-01-16] MEDS: QUEtiapine FUMARATE 200 MG TABLET PO SCH (20:06)
[2021-01-16] MEDS: DOCUSATE SODIUM 100 MG CAPSULE PO PRN (20:07)
[2021-01-16 20:22] VITALS: BP 140/92
[2021-01-17 05:25] VITALS: BP 152/95
[2021-01-17] MEDS: LEVOTHYROXINE SODIUM 75 MCG TABLET PO SCH (05:50)
[2021-01-17] MEDS: TraMADol HCL 50 MG TABLET PO PRN ×2 (05:52→13:52)
[2021-01-17] MEDS: AmLODIPine BESYLATE 5 MG TABLET PO SCH (06:26)
[2021-01-17 10:02] VITALS: BP 130/80
[2021-01-17] MEDS: SENNA/DOCUSATE SODIUM 8.6-50 MG TABLET PO SCH ×2 (10:26→19:55)
[2021-01-17] MEDS: GABAPENTIN 100 MG CAPSULE PO SCH ×3 (10:27→19:55)
[2021-01-17] MEDS: MULTIVITAMINS, THERAPEUTIC TABLET PO SCH (10:27)
[2021-01-17] MEDS: THIAMINE 100 MG TABLET PO SCH (10:27)
[2021-01-17] MEDS: TAMSULOSIN HCL 0.4 MG CAPSULE PO SCH (10:27)
[2021-01-17] MEDS: NICOTINE 21 MG/24 HOUR PATCH TD SCH (10:27)
[2021-01-17] MEDS: QUEtiapine FUMARATE 100 MG TABLET PO SCH (10:27)
[2021-01-17] MEDS: BusPIRone HCL 15 MG TABLET PO SCH ×2 (10:28→19:55)
[2021-01-17] MEDS: PANTOPRAZOLE SODIUM 40 MG DR TABLET PO SCH (10:28)
[2021-01-17] MEDS: FOLIC ACID 1 MG TABLET PO SCH (10:28)
[2021-01-17 19:55] VITALS: BP 114/76
[2021-01-17] MEDS: QUEtiapine FUMARATE 200 MG TABLET PO SCH (19:55)
[2021-01-18 03:00] VITALS: BP 140/97
[2021-01-18] MEDS: TraMADol HCL 50 MG TABLET PO PRN ×2 (03:10→13:33)
[2021-01-18] MEDS: LEVOTHYROXINE SODIUM 75 MCG TABLET PO SCH (06:05)
[2021-01-18 07:23] VITALS: BP 111/74
[2021-01-18] MEDS: ACETAMINOPHEN 325 MG TABLET PO PRN ×2 (07:32→16:26)
[2021-01-18] MEDS: MULTIVITAMINS, THERAPEUTIC TABLET PO SCH (08:44)
[2021-01-18] MEDS: NICOTINE 21 MG/24 HOUR PATCH TD SCH (08:44)
[2021-01-18] MEDS: TAMSULOSIN HCL 0.4 MG CAPSULE PO SCH (08:44)
[2021-01-18] MEDS: GABAPENTIN 100 MG CAPSULE PO SCH ×3 (08:44→19:58)
[2021-01-18] MEDS: THIAMINE 100 MG TABLET PO SCH (08:44)
[2021-01-18] MEDS: FOLIC ACID 1 MG TABLET PO SCH (08:44)
[2021-01-18] MEDS: QUEtiapine FUMARATE 100 MG TABLET PO SCH (08:44)
[2021-01-18] MEDS: AmLODIPine BESYLATE 5 MG TABLET PO SCH (08:44)
[2021-01-18] MEDS: SENNA/DOCUSATE SODIUM 8.6-50 MG TABLET PO SCH ×2 (08:44→19:58)
[2021-01-18] MEDS: BusPIRone HCL 15 MG TABLET PO SCH ×2 (08:44→19:58)
[2021-01-18] MEDS: PANTOPRAZOLE SODIUM 40 MG DR TABLET PO SCH (08:44)
[2021-01-18 15:24] VITALS: BP 119/76
[2021-01-18 19:30] VITALS: BP 121/74
[2021-01-18] MEDS: QUEtiapine FUMARATE 200 MG TABLET PO SCH (19:58)
[2021-01-19] MEDS: TraMADol HCL 50 MG TABLET PO PRN ×3 (02:11→20:27)
[2021-01-19 04:00] VITALS: BP 116/72
[2021-01-19] MEDS: LEVOTHYROXINE SODIUM 75 MCG TABLET PO SCH (05:44)
[2021-01-19] MEDS: ACETAMINOPHEN 325 MG TABLET PO PRN ×2 (05:46→12:11)
[2021-01-19 09:00] VITALS: BP 123/83
[2021-01-19] MEDS: NICOTINE 21 MG/24 HOUR PATCH TD SCH (09:05)
[2021-01-19] MEDS: MULTIVITAMINS, THERAPEUTIC TABLET PO SCH (09:08)
[2021-01-19] MEDS: THIAMINE 100 MG TABLET PO SCH (09:09)
[2021-01-19] MEDS: TAMSULOSIN HCL 0.4 MG CAPSULE PO SCH (09:09)
[2021-01-19] MEDS: BusPIRone HCL 15 MG TABLET PO SCH ×2 (09:10→20:25)
[2021-01-19] MEDS: PANTOPRAZOLE SODIUM 40 MG DR TABLET PO SCH (09:12)
[2021-01-19] MEDS: GABAPENTIN 100 MG CAPSULE PO SCH ×3 (09:12→20:26)
[2021-01-19] MEDS: FOLIC ACID 1 MG TABLET PO SCH (09:13)
[2021-01-19] MEDS: QUEtiapine FUMARATE 100 MG TABLET PO SCH (09:13)
[2021-01-19] MEDS: AmLODIPine BESYLATE 5 MG TABLET PO SCH (09:17)
[2021-01-19] MEDS: SENNA/DOCUSATE SODIUM 8.6-50 MG TABLET PO SCH ×2 (09:27→20:26)
[2021-01-19 15:20] VITALS: BP 120/64
[2021-01-19] MEDS: CYCLOBENZAPRINE HCL 10 MG TABLET PO PRN (15:32)
[2021-01-19 19:49] VITALS: BP 123/74
[2021-01-19] MEDS: QUEtiapine FUMARATE 200 MG TABLET PO SCH (20:25)
[2021-01-20 05:26] VITALS: BP 137/89
[2021-01-20] MEDS: LEVOTHYROXINE SODIUM 75 MCG TABLET PO SCH (05:39)
[2021-01-20] MEDS: CYCLOBENZAPRINE HCL 10 MG TABLET PO PRN ×2 (05:40→14:20)
[2021-01-20] MEDS: TraMADol HCL 50 MG TABLET PO PRN ×2 (05:47→14:20)
[2021-01-20 07:32] VITALS: BP 143/94
[2021-01-20] MEDS: NICOTINE 21 MG/24 HOUR PATCH TD SCH (09:36)
[2021-01-20] MEDS: THIAMINE 100 MG TABLET PO SCH (09:37)
[2021-01-20] MEDS: ACETAMINOPHEN 325 MG TABLET PO PRN ×2 (09:37→16:17)
[2021-01-20] MEDS: MULTIVITAMINS, THERAPEUTIC TABLET PO SCH (09:37)
[2021-01-20] MEDS: QUEtiapine FUMARATE 100 MG TABLET PO SCH (09:37)
[2021-01-20] MEDS: TAMSULOSIN HCL 0.4 MG CAPSULE PO SCH (09:38)
[2021-01-20] MEDS: PANTOPRAZOLE SODIUM 40 MG DR TABLET PO SCH (09:38)
[2021-01-20] MEDS: FOLIC ACID 1 MG TABLET PO SCH (09:38)
[2021-01-20] MEDS: BusPIRone HCL 15 MG TABLET PO SCH ×2 (09:38→20:04)
[2021-01-20] MEDS: AmLODIPine BESYLATE 5 MG TABLET PO SCH (09:38)
[2021-01-20] MEDS: GABAPENTIN 100 MG CAPSULE PO SCH ×3 (09:38→20:04)
[2021-01-20] MEDS: SENNA/DOCUSATE SODIUM 8.6-50 MG TABLET PO SCH ×2 (09:38→20:04)
[2021-01-20 16:14] VITALS: BP 114/73
[2021-01-20 19:42] VITALS: BP 130/86
[2021-01-20] MEDS: QUEtiapine FUMARATE 200 MG TABLET PO SCH (20:03)
[2021-01-21 05:04] VITALS: BP 121/75
[2021-01-21] MEDS: TraMADol HCL 50 MG TABLET PO PRN ×3 (05:23→23:22)
[2021-01-21] MEDS: LEVOTHYROXINE SODIUM 75 MCG TABLET PO SCH (05:37)
[2021-01-21] MEDS: FOLIC ACID 1 MG TABLET PO SCH (08:35)
[2021-01-21] MEDS: DOCUSATE SODIUM 100 MG CAPSULE PO PRN (08:35)
[2021-01-21] MEDS: TAMSULOSIN HCL 0.4 MG CAPSULE PO SCH (08:36)
[2021-01-21] MEDS: THIAMINE 100 MG TABLET PO SCH (08:36)
[2021-01-21] MEDS: PANTOPRAZOLE SODIUM 40 MG DR TABLET PO SCH (08:37)
[2021-01-21] MEDS: MULTIVITAMINS, THERAPEUTIC TABLET PO SCH (08:37)
[2021-01-21] MEDS: SENNA/DOCUSATE SODIUM 8.6-50 MG TABLET PO SCH ×2 (08:37→21:22)
[2021-01-21] MEDS: GABAPENTIN 100 MG CAPSULE PO SCH ×3 (08:38→21:22)
[2021-01-21] MEDS: BusPIRone HCL 15 MG TABLET PO SCH ×2 (08:38→21:22)
[2021-01-21] MEDS: QUEtiapine FUMARATE 100 MG TABLET PO SCH (08:39)
[2021-01-21] MEDS: NICOTINE 21 MG/24 HOUR PATCH TD SCH (08:40)
[2021-01-21] MEDS: CYCLOBENZAPRINE HCL 10 MG TABLET PO PRN ×3 (08:44→23:22)
[2021-01-21] MEDS: ACETAMINOPHEN 325 MG TABLET PO PRN ×2 (08:44→13:43)
[2021-01-21] MEDS: AmLODIPine BESYLATE 5 MG TABLET PO SCH (12:30)
[2021-01-21 17:02] VITALS: BP 125/75
[2021-01-21 21:17] VITALS: BP 124/87
[2021-01-21] MEDS: QUEtiapine FUMARATE 200 MG TABLET PO SCH (21:22)
[2021-01-22 05:33] VITALS: BP 129/80
[2021-01-22] MEDS: LEVOTHYROXINE SODIUM 75 MCG TABLET PO SCH (06:20)
[2021-01-22 08:01] VITALS: BP 132/92
[2021-01-22] MEDS: SENNA/DOCUSATE SODIUM 8.6-50 MG TABLET PO SCH ×2 (09:50→20:48)
[2021-01-22] MEDS: GABAPENTIN 100 MG CAPSULE PO SCH ×3 (09:50→20:48)
[2021-01-22 09:51] VITALS: BP 148/94
[2021-01-22] MEDS: THIAMINE 100 MG TABLET PO SCH (09:51)
[2021-01-22] MEDS: NICOTINE 21 MG/24 HOUR PATCH TD SCH (09:51)
[2021-01-22] MEDS: BusPIRone HCL 15 MG TABLET PO SCH ×2 (09:51→20:48)
[2021-01-22] MEDS: PANTOPRAZOLE SODIUM 40 MG DR TABLET PO SCH (09:52)
[2021-01-22] MEDS: FOLIC ACID 1 MG TABLET PO SCH (09:52)
[2021-01-22] MEDS: TAMSULOSIN HCL 0.4 MG CAPSULE PO SCH (09:52)
[2021-01-22] MEDS: QUEtiapine FUMARATE 100 MG TABLET PO SCH (09:52)
[2021-01-22] MEDS: DOCUSATE SODIUM 100 MG CAPSULE PO PRN (09:53)
[2021-01-22] MEDS: AmLODIPine BESYLATE 5 MG TABLET PO SCH (09:53)
[2021-01-22] MEDS: MULTIVITAMINS, THERAPEUTIC TABLET PO SCH (09:53)
[2021-01-22] MEDS: ACETAMINOPHEN 325 MG TABLET PO PRN ×2 (11:18→16:18)
[2021-01-22] MEDS: CYCLOBENZAPRINE HCL 10 MG TABLET PO PRN ×2 (11:18→20:57)
[2021-01-22 16:02] VITALS: BP 133/98
[2021-01-22 19:41] VITALS: BP 132/82
[2021-01-22] MEDS: QUEtiapine FUMARATE 200 MG TABLET PO SCH (20:48)
[2021-01-22] MEDS: TraMADol HCL 50 MG TABLET PO PRN (20:49)
[2021-01-22] MEDS: BISACODYL 10 MG RECTAL RECTAL SUPPOSITORY PR PRN (22:33)
[2021-01-23] MEDS: ACETAMINOPHEN 325 MG TABLET PO PRN ×3 (03:16→20:05)
[2021-01-23 04:45] VITALS: BP 111/77
[2021-01-23] MEDS: LEVOTHYROXINE SODIUM 75 MCG TABLET PO SCH (05:56)
[2021-01-23] MEDS: CYCLOBENZAPRINE HCL 10 MG TABLET PO PRN ×3 (05:57→23:56)
[2021-01-23] MEDS: TraMADol HCL 50 MG TABLET PO PRN ×3 (05:58→23:56)
[2021-01-23] MEDS: MULTIVITAMINS, THERAPEUTIC TABLET PO SCH (10:19)
[2021-01-23] MEDS: AmLODIPine BESYLATE 5 MG TABLET PO SCH (10:19)
[2021-01-23] MEDS: THIAMINE 100 MG TABLET PO SCH (10:19)
[2021-01-23 10:20] VITALS: BP 135/90
[2021-01-23] MEDS: GABAPENTIN 100 MG CAPSULE PO SCH ×3 (10:20→20:06)
[2021-01-23] MEDS: BusPIRone HCL 15 MG TABLET PO SCH ×2 (10:20→20:06)
[2021-01-23] MEDS: TAMSULOSIN HCL 0.4 MG CAPSULE PO SCH (10:20)
[2021-01-23] MEDS: PANTOPRAZOLE SODIUM 40 MG DR TABLET PO SCH (10:20)
[2021-01-23] MEDS: FOLIC ACID 1 MG TABLET PO SCH (10:20)
[2021-01-23] MEDS: SENNA/DOCUSATE SODIUM 8.6-50 MG TABLET PO SCH ×2 (10:20→20:06)
[2021-01-23] MEDS: NICOTINE 21 MG/24 HOUR PATCH TD SCH (10:20)
[2021-01-23] MEDS: QUEtiapine FUMARATE 100 MG TABLET PO SCH (10:27)
[2021-01-23 16:30] VITALS: BP 122/64
[2021-01-23 19:22] VITALS: BP 137/82
[2021-01-23] MEDS: QUEtiapine FUMARATE 200 MG TABLET PO SCH (20:06)
[2021-01-24 06:30] VITALS: BP 121/83
[2021-01-24] MEDS: LEVOTHYROXINE SODIUM 75 MCG TABLET PO SCH (06:49)
[2021-01-24] MEDS: CYCLOBENZAPRINE HCL 10 MG TABLET PO PRN ×2 (06:50→15:37)
[2021-01-24] MEDS: TraMADol HCL 50 MG TABLET PO PRN ×2 (06:50→15:34)
[2021-01-24 07:46] VITALS: BP 118/73
[2021-01-24] MEDS: NICOTINE 21 MG/24 HOUR PATCH TD SCH (08:10)
[2021-01-24] MEDS: AmLODIPine BESYLATE 5 MG TABLET PO SCH (08:10)
[2021-01-24] MEDS: FOLIC ACID 1 MG TABLET PO SCH (08:11)
[2021-01-24] MEDS: GABAPENTIN 100 MG CAPSULE PO SCH ×3 (08:11→19:53)
[2021-01-24] MEDS: BusPIRone HCL 15 MG TABLET PO SCH ×2 (08:11→19:53)
[2021-01-24] MEDS: QUEtiapine FUMARATE 100 MG TABLET PO SCH (08:11)
[2021-01-24] MEDS: SENNA/DOCUSATE SODIUM 8.6-50 MG TABLET PO SCH ×2 (08:11→19:53)
[2021-01-24] MEDS: MULTIVITAMINS, THERAPEUTIC TABLET PO SCH (08:11)
[2021-01-24] MEDS: PANTOPRAZOLE SODIUM 40 MG DR TABLET PO SCH (08:11)
[2021-01-24] MEDS: THIAMINE 100 MG TABLET PO SCH (08:11)
[2021-01-24] MEDS: TAMSULOSIN HCL 0.4 MG CAPSULE PO SCH (08:11)
[2021-01-24 15:22] VITALS: BP 114/83
[2021-01-24 19:50] VITALS: BP 125/71
[2021-01-24] MEDS: QUEtiapine FUMARATE 200 MG TABLET PO SCH (19:53)
[2021-01-24] MEDS: ACETAMINOPHEN 325 MG TABLET PO PRN (20:06)
[2021-01-25] MEDS: CYCLOBENZAPRINE HCL 10 MG TABLET PO PRN ×2 (04:01→12:18)
[2021-01-25] MEDS: TraMADol HCL 50 MG TABLET PO PRN ×3 (04:01→21:05)
[2021-01-25 05:16] VITALS: BP 111/64
[2021-01-25] MEDS: LEVOTHYROXINE SODIUM 75 MCG TABLET PO SCH (05:53)
[2021-01-25] MEDS: ACETAMINOPHEN 325 MG TABLET PO PRN ×2 (06:02→15:59)
[2021-01-25 07:26] VITALS: BP 126/79
[2021-01-25] MEDS: GABAPENTIN 100 MG CAPSULE PO SCH ×3 (09:00→21:04)
[2021-01-25] MEDS: THIAMINE 100 MG TABLET PO SCH (09:00)
[2021-01-25] MEDS: MULTIVITAMINS, THERAPEUTIC TABLET PO SCH (09:00)
[2021-01-25] MEDS: TAMSULOSIN HCL 0.4 MG CAPSULE PO SCH (09:00)
[2021-01-25] MEDS: AmLODIPine BESYLATE 5 MG TABLET PO SCH (09:00)
[2021-01-25] MEDS: PANTOPRAZOLE SODIUM 40 MG DR TABLET PO SCH (09:00)
[2021-01-25] MEDS: FOLIC ACID 1 MG TABLET PO SCH (09:00)
[2021-01-25] MEDS: BusPIRone HCL 15 MG TABLET PO SCH ×2 (09:00→21:04)
[2021-01-25] MEDS: QUEtiapine FUMARATE 100 MG TABLET PO SCH (09:00)
[2021-01-25] MEDS: SENNA/DOCUSATE SODIUM 8.6-50 MG TABLET PO SCH ×2 (09:00→21:04)
[2021-01-25] MEDS: NICOTINE 21 MG/24 HOUR PATCH TD SCH (09:01)
[2021-01-25 15:16] VITALS: BP 97/59
[2021-01-25] MEDS: DOCUSATE SODIUM 100 MG CAPSULE PO PRN (15:32)
[2021-01-25 19:36] VITALS: BP 140/89
[2021-01-25] MEDS: QUEtiapine FUMARATE 200 MG TABLET PO SCH (21:04)
[2021-01-26] MEDS: LEVOTHYROXINE SODIUM 75 MCG TABLET PO SCH (05:28)
[2021-01-26] MEDS: TraMADol HCL 50 MG TABLET PO PRN ×2 (05:32→15:18)
[2021-01-26 05:33] VITALS: BP 136/77
[2021-01-26 08:05] VITALS: BP 114/83
[2021-01-26] MEDS: THIAMINE 100 MG TABLET PO SCH (08:37)
[2021-01-26] MEDS: QUEtiapine FUMARATE 100 MG TABLET PO SCH (08:37)
[2021-01-26] MEDS: PANTOPRAZOLE SODIUM 40 MG DR TABLET PO SCH (08:37)
[2021-01-26] MEDS: BusPIRone HCL 15 MG TABLET PO SCH ×2 (08:37→20:02)
[2021-01-26] MEDS: FOLIC ACID 1 MG TABLET PO SCH (08:37)
[2021-01-26] MEDS: GABAPENTIN 100 MG CAPSULE PO SCH ×3 (08:37→20:02)
[2021-01-26] MEDS: TAMSULOSIN HCL 0.4 MG CAPSULE PO SCH (08:37)
[2021-01-26] MEDS: MULTIVITAMINS, THERAPEUTIC TABLET PO SCH (08:37)
[2021-01-26] MEDS: AmLODIPine BESYLATE 5 MG TABLET PO SCH (08:38)
[2021-01-26] MEDS: NICOTINE 21 MG/24 HOUR PATCH TD SCH (08:38)
[2021-01-26] MEDS: SENNA/DOCUSATE SODIUM 8.6-50 MG TABLET PO SCH ×2 (08:38→20:02)
[2021-01-26] MEDS: ACETAMINOPHEN 325 MG TABLET PO PRN ×2 (10:20→20:02)
[2021-01-26] MEDS: CYCLOBENZAPRINE HCL 10 MG TABLET PO PRN (15:18)
[2021-01-26 15:55] VITALS: BP 87/65
[2021-01-26] MEDS: QUEtiapine FUMARATE 200 MG TABLET PO SCH (20:02)
[2021-01-26 20:07] VITALS: BP 119/75
[2021-01-27 04:59] VITALS: BP 120/76
[2021-01-27] MEDS: TraMADol HCL 50 MG TABLET PO PRN ×2 (05:58→20:43)
[2021-01-27] MEDS: LEVOTHYROXINE SODIUM 75 MCG TABLET PO SCH (05:58)
[2021-01-27] MEDS: CYCLOBENZAPRINE HCL 10 MG TABLET PO PRN ×2 (06:05→15:11)
[2021-01-27 07:22] VITALS: BP 124/78
[2021-01-27] MEDS: NICOTINE 21 MG/24 HOUR PATCH TD SCH (09:00)
[2021-01-27] MEDS: TAMSULOSIN HCL 0.4 MG CAPSULE PO SCH (09:13)
[2021-01-27] MEDS: GABAPENTIN 100 MG CAPSULE PO SCH ×3 (09:13→20:35)
[2021-01-27] MEDS: MULTIVITAMINS, THERAPEUTIC TABLET PO SCH (09:14)
[2021-01-27] MEDS: THIAMINE 100 MG TABLET PO SCH (09:14)
[2021-01-27] MEDS: QUEtiapine FUMARATE 100 MG TABLET PO SCH (09:14)
[2021-01-27] MEDS: FOLIC ACID 1 MG TABLET PO SCH (09:14)
[2021-01-27] MEDS: PANTOPRAZOLE SODIUM 40 MG DR TABLET PO SCH (09:14)
[2021-01-27] MEDS: BusPIRone HCL 15 MG TABLET PO SCH ×2 (09:14→20:35)
[2021-01-27] MEDS: AmLODIPine BESYLATE 5 MG TABLET PO SCH (09:14)
[2021-01-27] MEDS: SENNA/DOCUSATE SODIUM 8.6-50 MG TABLET PO SCH ×2 (09:14→20:35)
[2021-01-27 15:06] VITALS: BP 118/84
[2021-01-27] MEDS: ACETAMINOPHEN 325 MG TABLET PO PRN (15:12)
[2021-01-27] MEDS: QUEtiapine FUMARATE 200 MG TABLET PO SCH (20:35)
[2021-01-27 20:41] VITALS: BP 122/79
[2021-01-28] MEDS: CYCLOBENZAPRINE HCL 10 MG TABLET PO PRN ×2 (02:21→14:54)
[2021-01-28 04:51] VITALS: BP 118/86
[2021-01-28] MEDS: TraMADol HCL 50 MG TABLET PO PRN ×2 (04:53→14:56)
[2021-01-28] MEDS: ACETAMINOPHEN 325 MG TABLET PO PRN ×2 (06:14→21:05)
[2021-01-28] MEDS: LEVOTHYROXINE SODIUM 75 MCG TABLET PO SCH (06:15)
[2021-01-28] MEDS: THIAMINE 100 MG TABLET PO SCH (08:59)
[2021-01-28] MEDS: TAMSULOSIN HCL 0.4 MG CAPSULE PO SCH (08:59)
[2021-01-28] MEDS: FOLIC ACID 1 MG TABLET PO SCH (09:00)
[2021-01-28] MEDS: DOCUSATE SODIUM 100 MG CAPSULE PO PRN (09:00)
[2021-01-28] MEDS: SENNA/DOCUSATE SODIUM 8.6-50 MG TABLET PO SCH ×2 (09:00→21:05)
[2021-01-28] MEDS: PANTOPRAZOLE SODIUM 40 MG DR TABLET PO SCH (09:00)
[2021-01-28] MEDS: MULTIVITAMINS, THERAPEUTIC TABLET PO SCH (09:00)
[2021-01-28] MEDS: GABAPENTIN 100 MG CAPSULE PO SCH ×3 (09:00→21:05)
[2021-01-28] MEDS: AmLODIPine BESYLATE 5 MG TABLET PO SCH (09:01)
[2021-01-28] MEDS: NICOTINE 21 MG/24 HOUR PATCH TD SCH (09:01)
[2021-01-28] MEDS: QUEtiapine FUMARATE 100 MG TABLET PO SCH (09:01)
[2021-01-28 09:02] VITALS: BP 121/79
[2021-01-28] MEDS: BusPIRone HCL 15 MG TABLET PO SCH ×2 (09:02→21:05)
[2021-01-28 16:23] VITALS: BP 122/75
[2021-01-28 19:26] VITALS: BP 106/67
[2021-01-28] MEDS: QUEtiapine FUMARATE 200 MG TABLET PO SCH (21:05)
[2021-01-29 05:00] VITALS: BP 142/89
[2021-01-29] MEDS: CYCLOBENZAPRINE HCL 10 MG TABLET PO PRN ×3 (05:15→23:46)
[2021-01-29] MEDS: TraMADol HCL 50 MG TABLET PO PRN ×3 (05:15→23:47)
[2021-01-29] MEDS: LEVOTHYROXINE SODIUM 75 MCG TABLET PO SCH (05:15)
[2021-01-29 08:04] VITALS: BP 136/83
[2021-01-29] MEDS: MULTIVITAMINS, THERAPEUTIC TABLET PO SCH (08:50)
[2021-01-29] MEDS: DOCUSATE SODIUM 100 MG CAPSULE PO PRN (08:50)
[2021-01-29] MEDS: PANTOPRAZOLE SODIUM 40 MG DR TABLET PO SCH (08:50)
[2021-01-29] MEDS: FOLIC ACID 1 MG TABLET PO SCH (08:50)
[2021-01-29] MEDS: GABAPENTIN 100 MG CAPSULE PO SCH ×3 (08:51→20:07)
[2021-01-29] MEDS: AmLODIPine BESYLATE 5 MG TABLET PO SCH (08:51)
[2021-01-29] MEDS: SENNA/DOCUSATE SODIUM 8.6-50 MG TABLET PO SCH ×2 (08:51→20:07)
[2021-01-29] MEDS: BusPIRone HCL 15 MG TABLET PO SCH ×2 (08:51→20:07)
[2021-01-29] MEDS: QUEtiapine FUMARATE 100 MG TABLET PO SCH (08:51)
[2021-01-29] MEDS: TAMSULOSIN HCL 0.4 MG CAPSULE PO SCH (08:55)
[2021-01-29] MEDS: THIAMINE 100 MG TABLET PO SCH (08:55)
[2021-01-29] MEDS: ACETAMINOPHEN 325 MG TABLET PO PRN ×2 (08:56→20:10)
[2021-01-29] MEDS: NICOTINE 21 MG/24 HOUR PATCH TD SCH (09:20)
[2021-01-29] MEDS: BISACODYL 10 MG RECTAL RECTAL SUPPOSITORY PR PRN (15:00)
[2021-01-29 15:45] VITALS: BP 128/87
[2021-01-29] MEDS: QUEtiapine FUMARATE 200 MG TABLET PO SCH (20:07)
[2021-01-29 20:30] VITALS: BP 119/78
[2021-01-29 23:15] VITALS: BP 107/70
[2021-01-30 05:00] VITALS: BP 115/76
[2021-01-30] MEDS: LEVOTHYROXINE SODIUM 75 MCG TABLET PO SCH (05:47)
[2021-01-30 09:00] VITALS: BP 139/89
[2021-01-30] MEDS: MULTIVITAMINS, THERAPEUTIC TABLET PO SCH (09:41)
[2021-01-30] MEDS: PANTOPRAZOLE SODIUM 40 MG DR TABLET PO SCH (09:41)
[2021-01-30] MEDS: FOLIC ACID 1 MG TABLET PO SCH (09:41)
[2021-01-30] MEDS: THIAMINE 100 MG TABLET PO SCH (09:41)
[2021-01-30] MEDS: GABAPENTIN 100 MG CAPSULE PO SCH ×3 (09:42→20:00)
[2021-01-30] MEDS: SENNA/DOCUSATE SODIUM 8.6-50 MG TABLET PO SCH ×2 (09:43→19:59)
[2021-01-30] MEDS: TAMSULOSIN HCL 0.4 MG CAPSULE PO SCH (09:43)
[2021-01-30] MEDS: TraMADol HCL 50 MG TABLET PO PRN ×2 (09:43→18:03)
[2021-01-30] MEDS: QUEtiapine FUMARATE 100 MG TABLET PO SCH (09:43)
[2021-01-30] MEDS: AmLODIPine BESYLATE 5 MG TABLET PO SCH (09:44)
[2021-01-30] MEDS: BusPIRone HCL 15 MG TABLET PO SCH ×2 (09:44→20:00)
[2021-01-30] MEDS: NICOTINE 21 MG/24 HOUR PATCH TD SCH (09:44)
[2021-01-30 15:30] VITALS: BP 142/64
[2021-01-30] MEDS: ACETAMINOPHEN 325 MG TABLET PO PRN ×2 (16:09→20:00)
[2021-01-30] MEDS: CYCLOBENZAPRINE HCL 10 MG TABLET PO PRN (18:04)
[2021-01-30 19:37] VITALS: BP 116/78
[2021-01-30] MEDS: QUEtiapine FUMARATE 200 MG TABLET PO SCH (20:00)
[2021-01-30] MEDS: BISACODYL 10 MG RECTAL RECTAL SUPPOSITORY PR PRN (20:00)
[2021-01-31] MEDS: CYCLOBENZAPRINE HCL 10 MG TABLET PO PRN ×2 (06:07→16:43)
[2021-01-31] MEDS: LEVOTHYROXINE SODIUM 75 MCG TABLET PO SCH (06:07)
[2021-01-31] MEDS: TraMADol HCL 50 MG TABLET PO PRN ×3 (06:08→18:03)
[2021-01-31 09:21] VITALS: BP 122/74
[2021-01-31] MEDS: THIAMINE 100 MG TABLET PO SCH (09:36)
[2021-01-31] MEDS: NICOTINE 21 MG/24 HOUR PATCH TD SCH (09:36)
[2021-01-31] MEDS: BusPIRone HCL 15 MG TABLET PO SCH ×2 (09:36→20:43)
[2021-01-31] MEDS: MULTIVITAMINS, THERAPEUTIC TABLET PO SCH (09:36)
[2021-01-31] MEDS: GABAPENTIN 100 MG CAPSULE PO SCH ×3 (09:36→20:43)
[2021-01-31] MEDS: SENNA/DOCUSATE SODIUM 8.6-50 MG TABLET PO SCH ×2 (09:36→20:43)
[2021-01-31] MEDS: FOLIC ACID 1 MG TABLET PO SCH (09:36)
[2021-01-31] MEDS: PANTOPRAZOLE SODIUM 40 MG DR TABLET PO SCH (09:37)
[2021-01-31] MEDS: QUEtiapine FUMARATE 100 MG TABLET PO SCH (09:37)
[2021-01-31] MEDS: TAMSULOSIN HCL 0.4 MG CAPSULE PO SCH (09:37)
[2021-01-31] MEDS: AmLODIPine BESYLATE 5 MG TABLET PO SCH (09:37)
[2021-01-31 13:30] VITALS: BP 106/70
[2021-01-31] MEDS: ACETAMINOPHEN 325 MG TABLET PO PRN (13:38)
[2021-01-31 17:22] VITALS: BP 107/67
[2021-01-31] MEDS: QUEtiapine FUMARATE 200 MG TABLET PO SCH (20:44)
[2021-01-31 21:02] VITALS: BP 100/69
[2021-02-01] MEDS: LEVOTHYROXINE SODIUM 75 MCG TABLET PO SCH (06:06)
[2021-02-01] MEDS: CYCLOBENZAPRINE HCL 10 MG TABLET PO PRN ×2 (06:30→14:09)
[2021-02-01] MEDS: TraMADol HCL 50 MG TABLET PO PRN ×2 (06:31→14:00)
[2021-02-01 08:43] VITALS: BP 129/82
[2021-02-01] MEDS: TAMSULOSIN HCL 0.4 MG CAPSULE PO SCH (09:27)
[2021-02-01] MEDS: BusPIRone HCL 15 MG TABLET PO SCH ×2 (09:27→19:50)
[2021-02-01] MEDS: GABAPENTIN 100 MG CAPSULE PO SCH ×3 (09:27→19:50)
[2021-02-01] MEDS: FOLIC ACID 1 MG TABLET PO SCH (09:27)
[2021-02-01] MEDS: PANTOPRAZOLE SODIUM 40 MG DR TABLET PO SCH (09:28)
[2021-02-01] MEDS: THIAMINE 100 MG TABLET PO SCH (09:28)
[2021-02-01] MEDS: AmLODIPine BESYLATE 5 MG TABLET PO SCH (09:28)
[2021-02-01] MEDS: SENNA/DOCUSATE SODIUM 8.6-50 MG TABLET PO SCH ×2 (09:28→19:50)
[2021-02-01] MEDS: QUEtiapine FUMARATE 100 MG TABLET PO SCH (09:28)
[2021-02-01] MEDS: MULTIVITAMINS, THERAPEUTIC TABLET PO SCH (09:28)
[2021-02-01] MEDS: NICOTINE 21 MG/24 HOUR PATCH TD SCH (09:29)
[2021-02-01] MEDS: ACETAMINOPHEN 325 MG TABLET PO PRN ×2 (09:30→16:53)
[2021-02-01] MEDS: BISACODYL 10 MG RECTAL RECTAL SUPPOSITORY PR PRN (15:20)
[2021-02-01 16:05] VITALS: BP 100/66
[2021-02-01] MEDS: QUEtiapine FUMARATE 200 MG TABLET PO SCH (19:50)
[2021-02-01 20:17] VITALS: BP 129/81
[2021-02-02] MEDS: LEVOTHYROXINE SODIUM 75 MCG TABLET PO SCH (06:16)
[2021-02-02] MEDS: CYCLOBENZAPRINE HCL 10 MG TABLET PO PRN ×3 (06:19→23:08)
[2021-02-02] MEDS: TraMADol HCL 50 MG TABLET PO PRN ×3 (06:20→23:08)
[2021-02-02 07:30] VITALS: BP 145/93
[2021-02-02] MEDS: THIAMINE 100 MG TABLET PO SCH (09:04)
[2021-02-02] MEDS: PANTOPRAZOLE SODIUM 40 MG DR TABLET PO SCH (09:04)
[2021-02-02] MEDS: AmLODIPine BESYLATE 5 MG TABLET PO SCH (09:04)
[2021-02-02] MEDS: GABAPENTIN 100 MG CAPSULE PO SCH ×3 (09:04→20:08)
[2021-02-02] MEDS: BusPIRone HCL 15 MG TABLET PO SCH ×2 (09:04→20:08)
[2021-02-02] MEDS: SENNA/DOCUSATE SODIUM 8.6-50 MG TABLET PO SCH ×2 (09:05→20:08)
[2021-02-02] MEDS: NICOTINE 21 MG/24 HOUR PATCH TD SCH (09:05)
[2021-02-02] MEDS: FOLIC ACID 1 MG TABLET PO SCH (09:05)
[2021-02-02] MEDS: QUEtiapine FUMARATE 100 MG TABLET PO SCH (09:05)
[2021-02-02] MEDS: TAMSULOSIN HCL 0.4 MG CAPSULE PO SCH (09:05)
[2021-02-02] MEDS: MULTIVITAMINS, THERAPEUTIC TABLET PO SCH (09:05)
[2021-02-02] MEDS: ACETAMINOPHEN 325 MG TABLET PO PRN (09:10)
[2021-02-02 14:08] LABS: ALANINE AMINOTRANSFERASE 18 U/L (12-78); ALBUMIN 3.1 g/dL (3.4-5.0); ALKALINE PHOSPHATASE 103 U/L (46-116); ANION GAP 7 mmol/L (8-16); ASPARTATE AMINOTRANSFERASE 14 U/L (15-37); BILIRUBIN,TOTAL 0.2 mg/dL (0.1-1.0); CALCIUM, TOTAL 9.9 mg/dL (8.8-10.5); CARBON DIOXIDE 26 mmol/L (22-29); CHLORIDE 105 mmol/L (98-107); CREATININE 0.77 mg/dL (0.60-1.30); GLOMERULAR FILTR. RATE CALC > 60 mL/min (>60); GLUCOSE,RANDOM 96 mg/dL (70-110); SODIUM SERUM 138 mmol/L (136-145); TOTAL PROTEIN, SERUM 7.8 g/dL (6.4-8.2); UREA NITROGEN, BLOOD 18 mg/dL (7-18)
[2021-02-02 18:07] VITALS: BP 144/88
[2021-02-02] MEDS: QUEtiapine FUMARATE 200 MG TABLET PO SCH (20:08)
[2021-02-02 20:10] VITALS: BP 126/82
[2021-02-02 20:33] LABS: PHOSPHORUS 4.6 mg/dL (2.5-4.9)
[2021-02-02 23:07] VITALS: BP 123/76
[2021-02-03] MEDS: LEVOTHYROXINE SODIUM 75 MCG TABLET PO SCH (05:36)
[2021-02-03 06:29] LABS: BASOPHILS % (AUTO) 0.9 % (0.0-2.0); EOSINOPHILS % (AUTO) 5.5 % (1.0-6.0); HEMATOCRIT 34.1 % (41-53); HEMOGLOBIN 11.1 g/dL (13.5-17.5); LYMPHOCYTES # (AUTO) 1.9 K/uL (1.0-4.8); LYMPHOCYTES % (AUTO) 25.5 % (22.0-44.0); MEAN CORPUSCULAR HEMOGLOBIN 25.6 pg (26.0-34.0); MEAN CORPUSCULAR HGB CONC 32.5 G/dL (31.0-37.0); MEAN CORPUSCULAR VOLUME 79 fL (80-100); MONOCYTES # (AUTO) 0.9 K/uL (0.1-1.0); NEUTROPHILS # (AUTO) 4.1 K/uL (1.8-7.7); NEUTROPHILS % (AUTO) 56.1 % (40.0-70.0); PLATELET COUNT (AUTO) 293 K/uL (150-450); RED BLOOD CELL COUNT(AUTO) 4.33 MIL/uL (4.50-5.90); RED CELL DISTRIBUTION WIDTH 18.7 % (11.5-14.5)
[2021-02-03 06:34] LABS: ALANINE AMINOTRANSFERASE 17 U/L (12-78); ALBUMIN 3.1 g/dL (3.4-5.0); ALKALINE PHOSPHATASE 100 U/L (46-116); ANION GAP 6 mmol/L (8-16); ASPARTATE AMINOTRANSFERASE 18 U/L (15-37); BILIRUBIN,TOTAL 0.2 mg/dL (0.1-1.0); CALCIUM, TOTAL 9.8 mg/dL (8.8-10.5); CARBON DIOXIDE 27 mmol/L (22-29); CHLORIDE 103 mmol/L (98-107); CREATININE 0.81 mg/dL (0.60-1.30); GLOMERULAR FILTR. RATE CALC > 60 mL/min (>60); GLUCOSE,RANDOM 92 mg/dL (70-110); POTASSIUM 3.8 mmol/L (3.5-5.1); SODIUM SERUM 136 mmol/L (136-145); TOTAL PROTEIN, SERUM 7.9 g/dL (6.4-8.2); UREA NITROGEN, BLOOD 19 mg/dL (7-18)
[2021-02-03 08:00] VITALS: BP 130/80
[2021-02-03] MEDS: AmLODIPine BESYLATE 5 MG TABLET PO SCH (08:53)
[2021-02-03] MEDS: TraMADol HCL 50 MG TABLET PO PRN ×2 (08:53→18:09)
[2021-02-03] MEDS: NICOTINE 21 MG/24 HOUR PATCH TD SCH (08:53)
[2021-02-03] MEDS: CYCLOBENZAPRINE HCL 10 MG TABLET PO PRN ×2 (08:53→18:09)
[2021-02-03] MEDS: FOLIC ACID 1 MG TABLET PO SCH (08:54)
[2021-02-03] MEDS: SENNA/DOCUSATE SODIUM 8.6-50 MG TABLET PO SCH ×2 (08:54→19:51)
[2021-02-03] MEDS: BusPIRone HCL 15 MG TABLET PO SCH ×2 (08:54→19:51)
[2021-02-03] MEDS: THIAMINE 100 MG TABLET PO SCH (08:54)
[2021-02-03] MEDS: TAMSULOSIN HCL 0.4 MG CAPSULE PO SCH (08:54)
[2021-02-03] MEDS: GABAPENTIN 100 MG CAPSULE PO SCH ×3 (08:54→19:51)
[2021-02-03] MEDS: QUEtiapine FUMARATE 100 MG TABLET PO SCH (08:54)
[2021-02-03] MEDS: PANTOPRAZOLE SODIUM 40 MG DR TABLET PO SCH (08:54)
[2021-02-03] MEDS: MULTIVITAMINS, THERAPEUTIC TABLET PO SCH (08:54)
[2021-02-03] MEDS: ACETAMINOPHEN 325 MG TABLET PO PRN (15:35)
[2021-02-03] MEDS: HEPARIN SODIUM,PORCINE 5,000 UNITS/ML VIAL SQ SCH ×2 (15:35→23:23)
[2021-02-03 16:50] VITALS: BP 131/85
[2021-02-03 19:44] VITALS: BP 128/90
[2021-02-03] MEDS: QUEtiapine FUMARATE 200 MG TABLET PO SCH (19:51)
[2021-02-04 04:33] VITALS: BP 98/67
[2021-02-04] MEDS: CYCLOBENZAPRINE HCL 10 MG TABLET PO PRN ×3 (04:33→22:36)
[2021-02-04] MEDS: LEVOTHYROXINE SODIUM 75 MCG TABLET PO SCH (04:34)
[2021-02-04] MEDS: TraMADol HCL 50 MG TABLET PO PRN ×3 (04:34→22:36)
[2021-02-04 06:33] LABS: HEMATOCRIT 35.1 % (41-53); HEMOGLOBIN 11.5 g/dL (13.5-17.5); LYMPHOCYTES # (AUTO) 1.9 K/uL (1.0-4.8); LYMPHOCYTES % (AUTO) 33.2 % (22.0-44.0); MEAN CORPUSCULAR HEMOGLOBIN 25.4 pg (26.0-34.0); MEAN CORPUSCULAR HGB CONC 32.8 G/dL (31.0-37.0); MEAN CORPUSCULAR VOLUME 78 fL (80-100); MONOCYTES # (AUTO) 0.8 K/uL (0.1-1.0); MONOCYTES % (AUTO) 13.5 % (2.0-9.0); NEUTROPHILS # (AUTO) 2.7 K/uL (1.8-7.7); NEUTROPHILS % (AUTO) 46.3 % (40.0-70.0); PLATELET COUNT (AUTO) 244 K/uL (150-450); RED BLOOD CELL COUNT(AUTO) 4.53 MIL/uL (4.50-5.90); RED CELL DISTRIBUTION WIDTH 18.9 % (11.5-14.5)
[2021-02-04 07:13] LABS: ALANINE AMINOTRANSFERASE 13 U/L (12-78); ALBUMIN 3.1 g/dL (3.4-5.0); ALKALINE PHOSPHATASE 101 U/L (46-116); ANION GAP 9 mmol/L (8-16); ASPARTATE AMINOTRANSFERASE 18 U/L (15-37); BILIRUBIN,TOTAL 0.2 mg/dL (0.1-1.0); CALCIUM, TOTAL 9.9 mg/dL (8.8-10.5); CARBON DIOXIDE 25 mmol/L (22-29); CHLORIDE 103 mmol/L (98-107); CREATININE 0.79 mg/dL (0.60-1.30); GLOMERULAR FILTR. RATE CALC > 60 mL/min (>60); GLUCOSE,RANDOM 87 mg/dL (70-110); POTASSIUM 3.9 mmol/L (3.5-5.1); SODIUM SERUM 137 mmol/L (136-145); TOTAL PROTEIN, SERUM 7.8 g/dL (6.4-8.2); UREA NITROGEN, BLOOD 17 mg/dL (7-18)
[2021-02-04 07:30] VITALS: BP 115/75
[2021-02-04] MEDS: HEPARIN SODIUM,PORCINE 5,000 UNITS/ML VIAL SQ SCH ×3 (08:18→22:41)
[2021-02-04] MEDS: AmLODIPine BESYLATE 5 MG TABLET PO SCH (08:18)
[2021-02-04] MEDS: PANTOPRAZOLE SODIUM 40 MG DR TABLET PO SCH (08:18)
[2021-02-04] MEDS: TAMSULOSIN HCL 0.4 MG CAPSULE PO SCH (08:18)
[2021-02-04] MEDS: FOLIC ACID 1 MG TABLET PO SCH (08:19)
[2021-02-04] MEDS: QUEtiapine FUMARATE 100 MG TABLET PO SCH (08:19)
[2021-02-04] MEDS: SENNA/DOCUSATE SODIUM 8.6-50 MG TABLET PO SCH ×2 (08:19→20:17)
[2021-02-04] MEDS: MULTIVITAMINS, THERAPEUTIC TABLET PO SCH (08:19)
[2021-02-04] MEDS: THIAMINE 100 MG TABLET PO SCH (08:19)
[2021-02-04] MEDS: BusPIRone HCL 15 MG TABLET PO SCH ×2 (08:19→20:17)
[2021-02-04] MEDS: GABAPENTIN 100 MG CAPSULE PO SCH ×3 (08:19→20:17)
[2021-02-04] MEDS: NICOTINE 21 MG/24 HOUR PATCH TD SCH (08:21)
[2021-02-04 08:32] VITALS: BP 119/68
[2021-02-04 15:26] VITALS: BP 133/87
[2021-02-04] MEDS: ACETAMINOPHEN 325 MG TABLET PO PRN (15:41)
[2021-02-04 19:30] VITALS: BP 133/88
[2021-02-04] MEDS: QUEtiapine FUMARATE 200 MG TABLET PO SCH (20:17)
[2021-02-05] MEDS: ACETAMINOPHEN 325 MG TABLET PO PRN ×2 (01:15→15:23)
[2021-02-05] MEDS: LEVOTHYROXINE SODIUM 75 MCG TABLET PO SCH (05:39)
[2021-02-05 06:19] LABS: BASOPHILS % (AUTO) 0.7 % (0.0-2.0); EOSINOPHILS % (AUTO) 5.7 % (1.0-6.0); HEMATOCRIT 33.3 % (41-53); LYMPHOCYTES # (AUTO) 1.7 K/uL (1.0-4.8); LYMPHOCYTES % (AUTO) 28.4 % (22.0-44.0); MEAN CORPUSCULAR HEMOGLOBIN 25.7 pg (26.0-34.0); MEAN CORPUSCULAR VOLUME 78 fL (80-100); MONOCYTES # (AUTO) 0.8 K/uL (0.1-1.0); NEUTROPHILS # (AUTO) 3.1 K/uL (1.8-7.7); NEUTROPHILS % (AUTO) 52.2 % (40.0-70.0); PLATELET COUNT (AUTO) 240 K/uL (150-450); RED BLOOD CELL COUNT(AUTO) 4.28 MIL/uL (4.50-5.90); RED CELL DISTRIBUTION WIDTH 18.6 % (11.5-14.5)
[2021-02-05 08:09] VITALS: BP 136/82
[2021-02-05] MEDS: MULTIVITAMINS, THERAPEUTIC TABLET PO SCH (08:16)
[2021-02-05] MEDS: HEPARIN SODIUM,PORCINE 5,000 UNITS/ML VIAL SQ SCH ×3 (08:16→23:58)
[2021-02-05] MEDS: GABAPENTIN 100 MG CAPSULE PO SCH ×3 (08:16→20:10)
[2021-02-05] MEDS: FOLIC ACID 1 MG TABLET PO SCH (08:16)
[2021-02-05] MEDS: QUEtiapine FUMARATE 100 MG TABLET PO SCH (08:16)
[2021-02-05] MEDS: BusPIRone HCL 15 MG TABLET PO SCH ×2 (08:17→20:11)
[2021-02-05] MEDS: THIAMINE 100 MG TABLET PO SCH (08:17)
[2021-02-05] MEDS: PANTOPRAZOLE SODIUM 40 MG DR TABLET PO SCH (08:17)
[2021-02-05] MEDS: TAMSULOSIN HCL 0.4 MG CAPSULE PO SCH (08:17)
[2021-02-05] MEDS: SENNA/DOCUSATE SODIUM 8.6-50 MG TABLET PO SCH ×2 (08:17→20:11)
[2021-02-05] MEDS: AmLODIPine BESYLATE 5 MG TABLET PO SCH (08:17)
[2021-02-05] MEDS: TraMADol HCL 50 MG TABLET PO PRN ×3 (08:17→23:59)
[2021-02-05] MEDS: NICOTINE 21 MG/24 HOUR PATCH TD SCH (08:18)
[2021-02-05] MEDS: CYCLOBENZAPRINE HCL 10 MG TABLET PO PRN ×3 (08:28→23:59)
[2021-02-05 16:00] VITALS: BP 128/87
[2021-02-05 19:16] VITALS: BP 130/84
[2021-02-05] MEDS: QUEtiapine FUMARATE 200 MG TABLET PO SCH (20:10)
[2021-02-06] MEDS: LEVOTHYROXINE SODIUM 75 MCG TABLET PO SCH (05:54)
[2021-02-06 08:01] VITALS: BP 142/92
[2021-02-06] MEDS: GABAPENTIN 100 MG CAPSULE PO SCH ×3 (08:57→19:47)
[2021-02-06] MEDS: FOLIC ACID 1 MG TABLET PO SCH (08:57)
[2021-02-06] MEDS: MULTIVITAMINS, THERAPEUTIC TABLET PO SCH (08:57)
[2021-02-06] MEDS: NICOTINE 21 MG/24 HOUR PATCH TD SCH (08:57)
[2021-02-06] MEDS: BusPIRone HCL 15 MG TABLET PO SCH ×2 (08:57→19:47)
[2021-02-06] MEDS: SENNA/DOCUSATE SODIUM 8.6-50 MG TABLET PO SCH ×2 (08:57→19:47)
[2021-02-06] MEDS: THIAMINE 100 MG TABLET PO SCH (08:58)
[2021-02-06] MEDS: QUEtiapine FUMARATE 100 MG TABLET PO SCH (08:58)
[2021-02-06] MEDS: HEPARIN SODIUM,PORCINE 5,000 UNITS/ML VIAL SQ SCH ×3 (08:58→23:53)
[2021-02-06] MEDS: AmLODIPine BESYLATE 5 MG TABLET PO SCH (08:58)
[2021-02-06] MEDS: PANTOPRAZOLE SODIUM 40 MG DR TABLET PO SCH (08:58)
[2021-02-06] MEDS: TAMSULOSIN HCL 0.4 MG CAPSULE PO SCH (08:58)
[2021-02-06] MEDS: CYCLOBENZAPRINE HCL 10 MG TABLET PO PRN ×2 (09:02→17:07)
[2021-02-06] MEDS: TraMADol HCL 50 MG TABLET PO PRN ×2 (09:03→17:07)
[2021-02-06 15:36] VITALS: BP 118/83
[2021-02-06 19:30] VITALS: BP 109/67
[2021-02-06] MEDS: QUEtiapine FUMARATE 200 MG TABLET PO SCH (19:48)
[2021-02-07] MEDS: TraMADol HCL 50 MG TABLET PO PRN ×3 (01:38→17:45)
[2021-02-07] MEDS: CYCLOBENZAPRINE HCL 10 MG TABLET PO PRN ×3 (01:38→17:44)
[2021-02-07 04:47] VITALS: BP 110/67
[2021-02-07] MEDS: LEVOTHYROXINE SODIUM 75 MCG TABLET PO SCH (05:43)
[2021-02-07 07:23] LABS: BASOPHILS % (AUTO) 0.7 % (0.0-2.0); EOSINOPHILS % (AUTO) 4.5 % (1.0-6.0); HEMATOCRIT 34.8 % (41-53); HEMOGLOBIN 11.2 g/dL (13.5-17.5); LYMPHOCYTES # (AUTO) 1.9 K/uL (1.0-4.8); LYMPHOCYTES % (AUTO) 27.3 % (22.0-44.0); MEAN CORPUSCULAR HEMOGLOBIN 25.5 pg (26.0-34.0); MEAN CORPUSCULAR HGB CONC 32.3 G/dL (31.0-37.0); MEAN CORPUSCULAR VOLUME 79 fL (80-100); MONOCYTES # (AUTO) 0.9 K/uL (0.1-1.0); MONOCYTES % (AUTO) 12.9 % (2.0-9.0); NEUTROPHILS # (AUTO) 3.9 K/uL (1.8-7.7); NEUTROPHILS % (AUTO) 54.6 % (40.0-70.0); PLATELET COUNT (AUTO) 225 K/uL (150-450)
[2021-02-07 07:25] VITALS: BP 114/68
[2021-02-07 07:36] LABS: ANION GAP 7 mmol/L (8-16); CARBON DIOXIDE 27 mmol/L (22-29); CHLORIDE 103 mmol/L (98-107); GLUCOSE,RANDOM 103 mg/dL (70-110); SODIUM SERUM 137 mmol/L (136-145); UREA NITROGEN, BLOOD 19 mg/dL (7-18)
[2021-02-07 07:37] LABS: ALANINE AMINOTRANSFERASE 16 U/L (12-78); ALBUMIN 3.1 g/dL (3.4-5.0); ALKALINE PHOSPHATASE 101 U/L (46-116); ASPARTATE AMINOTRANSFERASE 16 U/L (15-37); BILIRUBIN,TOTAL 0.2 mg/dL (0.1-1.0); CALCIUM, TOTAL 9.8 mg/dL (8.8-10.5); GLOMERULAR FILTR. RATE CALC > 60 mL/min (>60); TOTAL PROTEIN, SERUM 7.6 g/dL (6.4-8.2)
[2021-02-07] MEDS: GABAPENTIN 100 MG CAPSULE PO SCH ×3 (08:50→19:43)
[2021-02-07] MEDS: NICOTINE 21 MG/24 HOUR PATCH TD SCH (08:50)
[2021-02-07] MEDS: FOLIC ACID 1 MG TABLET PO SCH (08:51)
[2021-02-07] MEDS: TAMSULOSIN HCL 0.4 MG CAPSULE PO SCH (08:51)
[2021-02-07] MEDS: PANTOPRAZOLE SODIUM 40 MG DR TABLET PO SCH (08:51)
[2021-02-07] MEDS: MULTIVITAMINS, THERAPEUTIC TABLET PO SCH (08:51)
[2021-02-07] MEDS: BusPIRone HCL 15 MG TABLET PO SCH ×2 (08:51→19:43)
[2021-02-07] MEDS: QUEtiapine FUMARATE 100 MG TABLET PO SCH (08:51)
[2021-02-07] MEDS: AmLODIPine BESYLATE 5 MG TABLET PO SCH (08:51)
[2021-02-07] MEDS: THIAMINE 100 MG TABLET PO SCH (08:52)
[2021-02-07] MEDS: SENNA/DOCUSATE SODIUM 8.6-50 MG TABLET PO SCH ×2 (08:52→19:43)
[2021-02-07] MEDS: HEPARIN SODIUM,PORCINE 5,000 UNITS/ML VIAL SQ SCH ×2 (08:52→16:49)
[2021-02-07] MEDS: ACETAMINOPHEN 325 MG TABLET PO PRN (11:24)
[2021-02-07 15:05] VITALS: BP 110/70
[2021-02-07 19:04] VITALS: BP 116/72
[2021-02-07] MEDS: QUEtiapine FUMARATE 200 MG TABLET PO SCH (19:43)
[2021-02-08] MEDS: HEPARIN SODIUM,PORCINE 5,000 UNITS/ML VIAL SQ SCH ×3 (01:08→15:57)
[2021-02-08 05:16] VITALS: BP 122/86
[2021-02-08] MEDS: LEVOTHYROXINE SODIUM 75 MCG TABLET PO SCH (05:35)
[2021-02-08] MEDS: TraMADol HCL 50 MG TABLET PO PRN ×2 (05:35→14:01)
[2021-02-08] MEDS: CYCLOBENZAPRINE HCL 10 MG TABLET PO PRN ×2 (05:36→14:02)
[2021-02-08] MEDS: BusPIRone HCL 15 MG TABLET PO SCH ×2 (08:57→19:53)
[2021-02-08] MEDS: TAMSULOSIN HCL 0.4 MG CAPSULE PO SCH (08:57)
[2021-02-08] MEDS: SENNA/DOCUSATE SODIUM 8.6-50 MG TABLET PO SCH ×2 (08:57→19:53)
[2021-02-08] MEDS: FOLIC ACID 1 MG TABLET PO SCH (08:59)
[2021-02-08] MEDS: QUEtiapine FUMARATE 100 MG TABLET PO SCH (08:59)
[2021-02-08] MEDS: THIAMINE 100 MG TABLET PO SCH (08:59)
[2021-02-08] MEDS: PANTOPRAZOLE SODIUM 40 MG DR TABLET PO SCH (08:59)
[2021-02-08] MEDS: GABAPENTIN 100 MG CAPSULE PO SCH ×3 (08:59→19:53)
[2021-02-08] MEDS: MULTIVITAMINS, THERAPEUTIC TABLET PO SCH (08:59)
[2021-02-08] MEDS: AmLODIPine BESYLATE 5 MG TABLET PO SCH (08:59)
[2021-02-08] MEDS: NICOTINE 21 MG/24 HOUR PATCH TD SCH (09:00)
[2021-02-08] MEDS: ACETAMINOPHEN 325 MG TABLET PO PRN ×2 (09:16→16:28)
[2021-02-08 09:26] VITALS: BP 140/89
[2021-02-08 12:02] VITALS: BP 100/62
[2021-02-08 16:02] VITALS: BP 125/81
[2021-02-08 19:45] VITALS: BP 103/72
[2021-02-08] MEDS: QUEtiapine FUMARATE 200 MG TABLET PO SCH (19:52)
[2021-02-09] MEDS: HEPARIN SODIUM,PORCINE 5,000 UNITS/ML VIAL SQ SCH ×4 (00:43→23:34)
[2021-02-09] MEDS: CYCLOBENZAPRINE HCL 10 MG TABLET PO PRN ×3 (00:44→19:43)
[2021-02-09] MEDS: TraMADol HCL 50 MG TABLET PO PRN ×3 (00:44→19:43)
[2021-02-09 05:12] VITALS: BP 102/66
[2021-02-09] MEDS: LEVOTHYROXINE SODIUM 75 MCG TABLET PO SCH (05:20)
[2021-02-09] MEDS: SENNA/DOCUSATE SODIUM 8.6-50 MG TABLET PO SCH ×2 (09:00→19:37)
[2021-02-09 09:45] VITALS: BP 121/79
[2021-02-09] MEDS: MULTIVITAMINS, THERAPEUTIC TABLET PO SCH (09:45)
[2021-02-09] MEDS: BusPIRone HCL 15 MG TABLET PO SCH ×2 (09:45→19:37)
[2021-02-09] MEDS: GABAPENTIN 100 MG CAPSULE PO SCH ×3 (09:45→19:36)
[2021-02-09] MEDS: FOLIC ACID 1 MG TABLET PO SCH (09:45)
[2021-02-09] MEDS: AmLODIPine BESYLATE 5 MG TABLET PO SCH (09:45)
[2021-02-09] MEDS: QUEtiapine FUMARATE 100 MG TABLET PO SCH (09:45)
[2021-02-09] MEDS: THIAMINE 100 MG TABLET PO SCH (09:46)
[2021-02-09] MEDS: TAMSULOSIN HCL 0.4 MG CAPSULE PO SCH (09:46)
[2021-02-09] MEDS: PANTOPRAZOLE SODIUM 40 MG DR TABLET PO SCH (09:46)
[2021-02-09] MEDS: NICOTINE 21 MG/24 HOUR PATCH TD SCH (09:46)
[2021-02-09 12:02] VITALS: BP 122/86
[2021-02-09 16:00] VITALS: BP 123/78
[2021-02-09] MEDS: ACETAMINOPHEN 325 MG TABLET PO PRN (17:24)
[2021-02-09 19:15] VITALS: BP 137/87
[2021-02-09] MEDS: QUEtiapine FUMARATE 200 MG TABLET PO SCH (19:37)
[2021-02-10 04:30] VITALS: BP 152/92
[2021-02-10] MEDS: LEVOTHYROXINE SODIUM 75 MCG TABLET PO SCH (06:28)
[2021-02-10] MEDS: CYCLOBENZAPRINE HCL 10 MG TABLET PO PRN ×2 (06:29→16:25)
[2021-02-10] MEDS: TraMADol HCL 50 MG TABLET PO PRN ×2 (06:29→16:25)
[2021-02-10 08:21] VITALS: BP 114/75
[2021-02-10] MEDS: PANTOPRAZOLE SODIUM 40 MG DR TABLET PO SCH (09:16)
[2021-02-10] MEDS: TAMSULOSIN HCL 0.4 MG CAPSULE PO SCH (09:16)
[2021-02-10] MEDS: DOCUSATE SODIUM 100 MG CAPSULE PO PRN (09:16)
[2021-02-10] MEDS: MULTIVITAMINS, THERAPEUTIC TABLET PO SCH (09:16)
[2021-02-10] MEDS: HEPARIN SODIUM,PORCINE 5,000 UNITS/ML VIAL SQ SCH ×2 (09:16→16:26)
[2021-02-10] MEDS: THIAMINE 100 MG TABLET PO SCH (09:16)
[2021-02-10] MEDS: AmLODIPine BESYLATE 5 MG TABLET PO SCH (09:16)
[2021-02-10] MEDS: NICOTINE 21 MG/24 HOUR PATCH TD SCH (09:17)
[2021-02-10] MEDS: GABAPENTIN 100 MG CAPSULE PO SCH ×3 (09:17→19:31)
[2021-02-10] MEDS: QUEtiapine FUMARATE 100 MG TABLET PO SCH (09:17)
[2021-02-10] MEDS: SENNA/DOCUSATE SODIUM 8.6-50 MG TABLET PO SCH ×2 (09:17→19:31)
[2021-02-10] MEDS: FOLIC ACID 1 MG TABLET PO SCH (09:17)
[2021-02-10] MEDS: BusPIRone HCL 15 MG TABLET PO SCH ×2 (09:18→19:31)
[2021-02-10] MEDS: QUEtiapine FUMARATE 200 MG TABLET PO SCH (19:30)
[2021-02-10] MEDS: ACETAMINOPHEN 325 MG TABLET PO PRN (19:35)
[2021-02-10 21:16] VITALS: BP 112/78
[2021-02-11] MEDS: TraMADol HCL 50 MG TABLET PO PRN ×3 (02:07→18:13)
[2021-02-11] MEDS: CYCLOBENZAPRINE HCL 10 MG TABLET PO PRN ×3 (02:07→18:30)
[2021-02-11] MEDS: LEVOTHYROXINE SODIUM 75 MCG TABLET PO SCH (06:22)
[2021-02-11 08:50] VITALS: BP 129/80
[2021-02-11] MEDS: FOLIC ACID 1 MG TABLET PO SCH (10:10)
[2021-02-11] MEDS: THIAMINE 100 MG TABLET PO SCH (10:10)
[2021-02-11] MEDS: PANTOPRAZOLE SODIUM 40 MG DR TABLET PO SCH (10:10)
[2021-02-11] MEDS: GABAPENTIN 100 MG CAPSULE PO SCH ×3 (10:10→21:01)
[2021-02-11] MEDS: TAMSULOSIN HCL 0.4 MG CAPSULE PO SCH (10:10)
[2021-02-11] MEDS: NICOTINE 21 MG/24 HOUR PATCH TD SCH (10:11)
[2021-02-11] MEDS: AmLODIPine BESYLATE 5 MG TABLET PO SCH (10:11)
[2021-02-11] MEDS: QUEtiapine FUMARATE 100 MG TABLET PO SCH (10:11)
[2021-02-11] MEDS: SENNA/DOCUSATE SODIUM 8.6-50 MG TABLET PO SCH ×2 (10:11→21:00)
[2021-02-11] MEDS: BusPIRone HCL 15 MG TABLET PO SCH ×2 (10:11→21:00)
[2021-02-11] MEDS: MULTIVITAMINS, THERAPEUTIC TABLET PO SCH (10:11)
[2021-02-11] MEDS: HEPARIN SODIUM,PORCINE 5,000 UNITS/ML VIAL SQ SCH ×3 (10:12→18:13)
[2021-02-11] MEDS: ACETAMINOPHEN 325 MG TABLET PO PRN (12:30)
[2021-02-11 16:03] VITALS: BP 112/70
[2021-02-11 19:50] VITALS: BP 107/74
[2021-02-11] MEDS: QUEtiapine FUMARATE 200 MG TABLET PO SCH (21:01)
[2021-02-12] MEDS: CYCLOBENZAPRINE HCL 10 MG TABLET PO PRN ×3 (01:30→17:30)
[2021-02-12] MEDS: TraMADol HCL 50 MG TABLET PO PRN ×3 (01:30→17:31)
[2021-02-12] MEDS: HEPARIN SODIUM,PORCINE 5,000 UNITS/ML VIAL SQ SCH ×4 (01:33→23:20)
[2021-02-12] MEDS: LEVOTHYROXINE SODIUM 75 MCG TABLET PO SCH (05:48)
[2021-02-12 07:59] VITALS: BP 144/68
[2021-02-12] MEDS: TAMSULOSIN HCL 0.4 MG CAPSULE PO SCH (09:42)
[2021-02-12] MEDS: PANTOPRAZOLE SODIUM 40 MG DR TABLET PO SCH (09:42)
[2021-02-12] MEDS: AmLODIPine BESYLATE 5 MG TABLET PO SCH (09:42)
[2021-02-12] MEDS: QUEtiapine FUMARATE 100 MG TABLET PO SCH (09:42)
[2021-02-12] MEDS: BusPIRone HCL 15 MG TABLET PO SCH ×2 (09:42→19:50)
[2021-02-12] MEDS: NICOTINE 21 MG/24 HOUR PATCH TD SCH (09:42)
[2021-02-12] MEDS: FOLIC ACID 1 MG TABLET PO SCH (09:42)
[2021-02-12] MEDS: GABAPENTIN 100 MG CAPSULE PO SCH ×3 (09:42→19:50)
[2021-02-12] MEDS: SENNA/DOCUSATE SODIUM 8.6-50 MG TABLET PO SCH ×2 (09:42→19:50)
[2021-02-12] MEDS: MULTIVITAMINS, THERAPEUTIC TABLET PO SCH (09:43)
[2021-02-12] MEDS: THIAMINE 100 MG TABLET PO SCH (09:45)
[2021-02-12] MEDS: ACETAMINOPHEN 325 MG TABLET PO PRN ×2 (14:33→23:19)
[2021-02-12 15:26] VITALS: BP 100/67
[2021-02-12 19:45] VITALS: BP 122/87
[2021-02-12] MEDS: QUEtiapine FUMARATE 200 MG TABLET PO SCH (19:50)
[2021-02-13 05:00] VITALS: BP 148/90
[2021-02-13] MEDS: TraMADol HCL 50 MG TABLET PO PRN ×3 (05:18→22:09)
[2021-02-13] MEDS: CYCLOBENZAPRINE HCL 10 MG TABLET PO PRN ×3 (05:19→22:08)
[2021-02-13] MEDS: LEVOTHYROXINE SODIUM 75 MCG TABLET PO SCH (05:19)
[2021-02-13 07:57] VITALS: BP 113/72
[2021-02-13] MEDS: HEPARIN SODIUM,PORCINE 5,000 UNITS/ML VIAL SQ SCH ×3 (08:00→23:28)
[2021-02-13] MEDS: TAMSULOSIN HCL 0.4 MG CAPSULE PO SCH (08:00)
[2021-02-13] MEDS: NICOTINE 21 MG/24 HOUR PATCH TD SCH (08:00)
[2021-02-13] MEDS: SENNA/DOCUSATE SODIUM 8.6-50 MG TABLET PO SCH ×2 (08:01→19:47)
[2021-02-13] MEDS: PANTOPRAZOLE SODIUM 40 MG DR TABLET PO SCH (08:01)
[2021-02-13] MEDS: THIAMINE 100 MG TABLET PO SCH (08:01)
[2021-02-13] MEDS: QUEtiapine FUMARATE 100 MG TABLET PO SCH (08:01)
[2021-02-13] MEDS: MULTIVITAMINS, THERAPEUTIC TABLET PO SCH (08:01)
[2021-02-13] MEDS: BusPIRone HCL 15 MG TABLET PO SCH ×2 (08:01→19:47)
[2021-02-13] MEDS: AmLODIPine BESYLATE 5 MG TABLET PO SCH (08:01)
[2021-02-13] MEDS: FOLIC ACID 1 MG TABLET PO SCH (08:01)
[2021-02-13] MEDS: GABAPENTIN 100 MG CAPSULE PO SCH ×3 (08:01→19:47)
[2021-02-13] MEDS: ACETAMINOPHEN 325 MG TABLET PO PRN (16:31)
[2021-02-13 16:35] VITALS: BP 109/72
[2021-02-13] MEDS: QUEtiapine FUMARATE 200 MG TABLET PO SCH (19:47)
[2021-02-13 19:57] VITALS: BP 136/89
[2021-02-14] MEDS: ACETAMINOPHEN 325 MG TABLET PO PRN (03:41)
[2021-02-14] MEDS: TraMADol HCL 50 MG TABLET PO PRN ×3 (07:19→22:28)
[2021-02-14] MEDS: HEPARIN SODIUM,PORCINE 5,000 UNITS/ML VIAL SQ SCH ×3 (07:19→23:52)
[2021-02-14] MEDS: LEVOTHYROXINE SODIUM 75 MCG TABLET PO SCH (07:19)
[2021-02-14] MEDS: CYCLOBENZAPRINE HCL 10 MG TABLET PO PRN ×3 (07:19→22:29)
[2021-02-14 07:25] VITALS: BP 138/93
[2021-02-14] MEDS: AmLODIPine BESYLATE 5 MG TABLET PO SCH (08:47)
[2021-02-14] MEDS: GABAPENTIN 100 MG CAPSULE PO SCH ×3 (08:47→19:58)
[2021-02-14] MEDS: QUEtiapine FUMARATE 100 MG TABLET PO SCH (08:47)
[2021-02-14] MEDS: TAMSULOSIN HCL 0.4 MG CAPSULE PO SCH (08:47)
[2021-02-14] MEDS: THIAMINE 100 MG TABLET PO SCH (08:47)
[2021-02-14] MEDS: FOLIC ACID 1 MG TABLET PO SCH (08:47)
[2021-02-14] MEDS: NICOTINE 21 MG/24 HOUR PATCH TD SCH (08:47)
[2021-02-14] MEDS: BusPIRone HCL 15 MG TABLET PO SCH ×2 (08:47→19:58)
[2021-02-14] MEDS: MULTIVITAMINS, THERAPEUTIC TABLET PO SCH (08:47)
[2021-02-14] MEDS: PANTOPRAZOLE SODIUM 40 MG DR TABLET PO SCH (08:47)
[2021-02-14] MEDS: SENNA/DOCUSATE SODIUM 8.6-50 MG TABLET PO SCH ×2 (08:48→19:58)
[2021-02-14 16:30] VITALS: BP 106/71
[2021-02-14] MEDS: QUEtiapine FUMARATE 200 MG TABLET PO SCH (19:57)
[2021-02-14 20:29] VITALS: BP 117/78
[2021-02-15] MEDS: ACETAMINOPHEN 325 MG TABLET PO PRN (01:49)
[2021-02-15 05:00] VITALS: BP 123/77
[2021-02-15] MEDS: LEVOTHYROXINE SODIUM 75 MCG TABLET PO SCH (06:27)
[2021-02-15] MEDS: TraMADol HCL 50 MG TABLET PO PRN ×3 (06:28→23:10)
[2021-02-15] MEDS: CYCLOBENZAPRINE HCL 10 MG TABLET PO PRN ×3 (06:28→23:10)
[2021-02-15 08:31] VITALS: BP 113/65
[2021-02-15] MEDS: BusPIRone HCL 15 MG TABLET PO SCH ×2 (09:38→20:41)
[2021-02-15] MEDS: MULTIVITAMINS, THERAPEUTIC TABLET PO SCH (09:39)
[2021-02-15] MEDS: PANTOPRAZOLE SODIUM 40 MG DR TABLET PO SCH (09:39)
[2021-02-15] MEDS: TAMSULOSIN HCL 0.4 MG CAPSULE PO SCH (09:39)
[2021-02-15] MEDS: AmLODIPine BESYLATE 5 MG TABLET PO SCH (09:39)
[2021-02-15] MEDS: THIAMINE 100 MG TABLET PO SCH (09:39)
[2021-02-15] MEDS: SENNA/DOCUSATE SODIUM 8.6-50 MG TABLET PO SCH ×2 (09:39→20:41)
[2021-02-15] MEDS: NICOTINE 21 MG/24 HOUR PATCH TD SCH (09:39)
[2021-02-15] MEDS: GABAPENTIN 100 MG CAPSULE PO SCH ×3 (09:39→20:41)
[2021-02-15] MEDS: FOLIC ACID 1 MG TABLET PO SCH (09:39)
[2021-02-15] MEDS: HEPARIN SODIUM,PORCINE 5,000 UNITS/ML VIAL SQ SCH ×3 (09:41→23:10)
[2021-02-15] MEDS: QUEtiapine FUMARATE 100 MG TABLET PO SCH (09:48)
[2021-02-15 15:30] VITALS: BP 115/68
[2021-02-15 19:57] VITALS: BP 137/85
[2021-02-15] MEDS: QUEtiapine FUMARATE 200 MG TABLET PO SCH (20:41)
[2021-02-16 04:30] VITALS: BP 142/85
[2021-02-16] MEDS: LEVOTHYROXINE SODIUM 75 MCG TABLET PO SCH (05:49)
[2021-02-16 07:17] VITALS: BP 116/79
[2021-02-16] MEDS: QUEtiapine FUMARATE 100 MG TABLET PO SCH (08:45)
[2021-02-16] MEDS: GABAPENTIN 100 MG CAPSULE PO SCH ×3 (08:45→20:20)
[2021-02-16] MEDS: TraMADol HCL 50 MG TABLET PO PRN ×2 (08:45→17:11)
[2021-02-16] MEDS: SENNA/DOCUSATE SODIUM 8.6-50 MG TABLET PO SCH ×2 (08:45→20:20)
[2021-02-16] MEDS: CYCLOBENZAPRINE HCL 10 MG TABLET PO PRN ×2 (08:45→17:11)
[2021-02-16] MEDS: BusPIRone HCL 15 MG TABLET PO SCH ×2 (08:46→20:19)
[2021-02-16] MEDS: AmLODIPine BESYLATE 5 MG TABLET PO SCH (08:46)
[2021-02-16] MEDS: MULTIVITAMINS, THERAPEUTIC TABLET PO SCH (08:46)
[2021-02-16] MEDS: FOLIC ACID 1 MG TABLET PO SCH (08:46)
[2021-02-16] MEDS: PANTOPRAZOLE SODIUM 40 MG DR TABLET PO SCH (08:46)
[2021-02-16] MEDS: THIAMINE 100 MG TABLET PO SCH (08:46)
[2021-02-16] MEDS: TAMSULOSIN HCL 0.4 MG CAPSULE PO SCH (08:46)
[2021-02-16] MEDS: HEPARIN SODIUM,PORCINE 5,000 UNITS/ML VIAL SQ SCH ×2 (08:47→16:00)
[2021-02-16] MEDS: NICOTINE 21 MG/24 HOUR PATCH TD SCH (08:47)
[2021-02-16 17:09] VITALS: BP 120/71
[2021-02-16] MEDS: ACETAMINOPHEN 325 MG TABLET PO PRN (20:19)
[2021-02-16] MEDS: QUEtiapine FUMARATE 200 MG TABLET PO SCH (20:20)
[2021-02-16 20:22] VITALS: BP 116/71
[2021-02-17] MEDS: CYCLOBENZAPRINE HCL 10 MG TABLET PO PRN ×3 (00:39→17:55)
[2021-02-17] MEDS: HEPARIN SODIUM,PORCINE 5,000 UNITS/ML VIAL SQ SCH ×4 (00:39→23:22)
[2021-02-17] MEDS: TraMADol HCL 50 MG TABLET PO PRN ×3 (00:39→17:55)
[2021-02-17] MEDS: LEVOTHYROXINE SODIUM 75 MCG TABLET PO SCH (06:02)
[2021-02-17 08:25] VITALS: BP 136/92
[2021-02-17] MEDS: TAMSULOSIN HCL 0.4 MG CAPSULE PO SCH (09:00)
[2021-02-17] MEDS: BusPIRone HCL 15 MG TABLET PO SCH ×2 (09:00→20:25)
[2021-02-17] MEDS: MULTIVITAMINS, THERAPEUTIC TABLET PO SCH (09:01)
[2021-02-17] MEDS: AmLODIPine BESYLATE 5 MG TABLET PO SCH (09:01)
[2021-02-17] MEDS: THIAMINE 100 MG TABLET PO SCH (09:01)
[2021-02-17] MEDS: PANTOPRAZOLE SODIUM 40 MG DR TABLET PO SCH (09:01)
[2021-02-17] MEDS: SENNA/DOCUSATE SODIUM 8.6-50 MG TABLET PO SCH ×2 (09:01→20:26)
[2021-02-17] MEDS: FOLIC ACID 1 MG TABLET PO SCH (09:01)
[2021-02-17] MEDS: GABAPENTIN 100 MG CAPSULE PO SCH ×3 (09:02→20:25)
[2021-02-17] MEDS: NICOTINE 21 MG/24 HOUR PATCH TD SCH (09:07)
[2021-02-17] MEDS: QUEtiapine FUMARATE 100 MG TABLET PO SCH (09:07)
[2021-02-17] MEDS: ACETAMINOPHEN 325 MG TABLET PO PRN ×2 (17:58→23:22)
[2021-02-17 20:15] VITALS: BP 135/85
[2021-02-17] MEDS: QUEtiapine FUMARATE 200 MG TABLET PO SCH (20:25)
[2021-02-18] MEDS: LEVOTHYROXINE SODIUM 75 MCG TABLET PO SCH (06:01)
[2021-02-18] MEDS: TraMADol HCL 50 MG TABLET PO PRN ×3 (06:01→22:07)
[2021-02-18] MEDS: CYCLOBENZAPRINE HCL 10 MG TABLET PO PRN ×3 (06:02→22:07)
[2021-02-18] MEDS: HEPARIN SODIUM,PORCINE 5,000 UNITS/ML VIAL SQ SCH ×2 (08:47→15:04)
[2021-02-18] MEDS: FOLIC ACID 1 MG TABLET PO SCH (08:48)
[2021-02-18] MEDS: MULTIVITAMINS, THERAPEUTIC TABLET PO SCH (08:48)
[2021-02-18] MEDS: PANTOPRAZOLE SODIUM 40 MG DR TABLET PO SCH (08:48)
[2021-02-18] MEDS: THIAMINE 100 MG TABLET PO SCH (08:48)
[2021-02-18] MEDS: AmLODIPine BESYLATE 5 MG TABLET PO SCH (08:48)
[2021-02-18] MEDS: TAMSULOSIN HCL 0.4 MG CAPSULE PO SCH (08:48)
[2021-02-18] MEDS: SENNA/DOCUSATE SODIUM 8.6-50 MG TABLET PO SCH ×2 (08:48→20:03)
[2021-02-18] MEDS: GABAPENTIN 100 MG CAPSULE PO SCH ×3 (08:48→20:02)
[2021-02-18] MEDS: QUEtiapine FUMARATE 100 MG TABLET PO SCH (08:48)
[2021-02-18] MEDS: BusPIRone HCL 15 MG TABLET PO SCH ×2 (08:48→20:03)
[2021-02-18 08:49] VITALS: BP 120/81
[2021-02-18] MEDS: NICOTINE 21 MG/24 HOUR PATCH TD SCH (08:49)
[2021-02-18] MEDS: BISACODYL 10 MG RECTAL RECTAL SUPPOSITORY PR PRN (15:00)
[2021-02-18] MEDS: QUEtiapine FUMARATE 200 MG TABLET PO SCH (20:03)
[2021-02-18 20:05] VITALS: BP 128/79
[2021-02-19] MEDS: HEPARIN SODIUM,PORCINE 5,000 UNITS/ML VIAL SQ SCH ×4 (00:54→23:31)
[2021-02-19] MEDS: LEVOTHYROXINE SODIUM 75 MCG TABLET PO SCH (06:02)
[2021-02-19] MEDS: CYCLOBENZAPRINE HCL 10 MG TABLET PO PRN ×3 (06:02→18:23)
[2021-02-19] MEDS: TraMADol HCL 50 MG TABLET PO PRN ×3 (06:02→18:23)
[2021-02-19 06:41] VITALS: BP 120/77
[2021-02-19 07:53] VITALS: BP 120/69
[2021-02-19] MEDS: AmLODIPine BESYLATE 5 MG TABLET PO SCH (08:48)
[2021-02-19] MEDS: FOLIC ACID 1 MG TABLET PO SCH (08:48)
[2021-02-19] MEDS: THIAMINE 100 MG TABLET PO SCH (08:48)
[2021-02-19] MEDS: GABAPENTIN 100 MG CAPSULE PO SCH ×3 (08:48→19:35)
[2021-02-19] MEDS: PANTOPRAZOLE SODIUM 40 MG DR TABLET PO SCH (08:48)
[2021-02-19] MEDS: QUEtiapine FUMARATE 100 MG TABLET PO SCH (08:48)
[2021-02-19] MEDS: TAMSULOSIN HCL 0.4 MG CAPSULE PO SCH (08:49)
[2021-02-19] MEDS: BusPIRone HCL 15 MG TABLET PO SCH ×2 (08:49→19:36)
[2021-02-19] MEDS: DOCUSATE SODIUM 100 MG CAPSULE PO PRN (08:49)
[2021-02-19] MEDS: MULTIVITAMINS, THERAPEUTIC TABLET PO SCH (08:49)
[2021-02-19] MEDS: NICOTINE 21 MG/24 HOUR PATCH TD SCH (08:50)
[2021-02-19] MEDS: SENNA/DOCUSATE SODIUM 8.6-50 MG TABLET PO SCH ×2 (08:55→19:35)
[2021-02-19] MEDS: ACETAMINOPHEN 325 MG TABLET PO PRN ×3 (15:19→23:53)
[2021-02-19 18:22] VITALS: BP 125/87
[2021-02-19] MEDS: QUEtiapine FUMARATE 200 MG TABLET PO SCH (19:36)
[2021-02-20 05:50] VITALS: BP 108/78
[2021-02-20] MEDS: LEVOTHYROXINE SODIUM 75 MCG TABLET PO SCH (06:12)
[2021-02-20] MEDS: CYCLOBENZAPRINE HCL 10 MG TABLET PO PRN ×3 (06:12→23:29)
[2021-02-20] MEDS: TraMADol HCL 50 MG TABLET PO PRN ×3 (06:13→23:30)
[2021-02-20 08:36] VITALS: BP 109/73
[2021-02-20] MEDS: AmLODIPine BESYLATE 5 MG TABLET PO SCH (08:44)
[2021-02-20] MEDS: THIAMINE 100 MG TABLET PO SCH (08:44)
[2021-02-20] MEDS: PANTOPRAZOLE SODIUM 40 MG DR TABLET PO SCH (08:44)
[2021-02-20] MEDS: QUEtiapine FUMARATE 100 MG TABLET PO SCH (08:44)
[2021-02-20] MEDS: TAMSULOSIN HCL 0.4 MG CAPSULE PO SCH (08:44)
[2021-02-20] MEDS: ACETAMINOPHEN 325 MG TABLET PO PRN ×2 (08:44→20:10)
[2021-02-20] MEDS: FOLIC ACID 1 MG TABLET PO SCH (08:44)
[2021-02-20] MEDS: BusPIRone HCL 15 MG TABLET PO SCH ×2 (08:44→20:10)
[2021-02-20] MEDS: NICOTINE 21 MG/24 HOUR PATCH TD SCH (08:45)
[2021-02-20] MEDS: HEPARIN SODIUM,PORCINE 5,000 UNITS/ML VIAL SQ SCH ×3 (08:45→23:34)
[2021-02-20] MEDS: GABAPENTIN 100 MG CAPSULE PO SCH ×3 (08:45→20:10)
[2021-02-20] MEDS: MULTIVITAMINS, THERAPEUTIC TABLET PO SCH (08:53)
[2021-02-20] MEDS: SENNA/DOCUSATE SODIUM 8.6-50 MG TABLET PO SCH ×2 (08:53→20:10)
[2021-02-20 16:00] VITALS: BP 110/72
[2021-02-20 19:15] VITALS: BP 118/73
[2021-02-20] MEDS: QUEtiapine FUMARATE 200 MG TABLET PO SCH (20:09)
[2021-02-21 05:02] VITALS: BP 114/68
[2021-02-21] MEDS: LEVOTHYROXINE SODIUM 75 MCG TABLET PO SCH ×2 (06:14→06:52)
[2021-02-21 07:17] VITALS: BP 116/70
[2021-02-21] MEDS: CYCLOBENZAPRINE HCL 10 MG TABLET PO PRN ×2 (09:27→17:29)
[2021-02-21] MEDS: NICOTINE 21 MG/24 HOUR PATCH TD SCH (09:27)
[2021-02-21] MEDS: TAMSULOSIN HCL 0.4 MG CAPSULE PO SCH (09:28)
[2021-02-21] MEDS: TraMADol HCL 50 MG TABLET PO PRN ×2 (09:28→17:30)
[2021-02-21] MEDS: SENNA/DOCUSATE SODIUM 8.6-50 MG TABLET PO SCH ×2 (09:29→20:55)
[2021-02-21] MEDS: THIAMINE 100 MG TABLET PO SCH (09:29)
[2021-02-21] MEDS: MULTIVITAMINS, THERAPEUTIC TABLET PO SCH (09:29)
[2021-02-21] MEDS: QUEtiapine FUMARATE 100 MG TABLET PO SCH (09:30)
[2021-02-21] MEDS: FOLIC ACID 1 MG TABLET PO SCH (09:30)
[2021-02-21] MEDS: BusPIRone HCL 15 MG TABLET PO SCH ×2 (09:30→20:55)
[2021-02-21] MEDS: PANTOPRAZOLE SODIUM 40 MG DR TABLET PO SCH (09:31)
[2021-02-21] MEDS: AmLODIPine BESYLATE 5 MG TABLET PO SCH (09:31)
[2021-02-21] MEDS: GABAPENTIN 100 MG CAPSULE PO SCH ×3 (09:31→20:55)
[2021-02-21] MEDS: HEPARIN SODIUM,PORCINE 5,000 UNITS/ML VIAL SQ SCH ×3 (09:32→23:41)
[2021-02-21 15:06] VITALS: BP 122/74
[2021-02-21] MEDS: QUEtiapine FUMARATE 200 MG TABLET PO SCH (20:54)
[2021-02-21] MEDS: ACETAMINOPHEN 325 MG TABLET PO PRN (20:54)
[2021-02-21 21:00] VITALS: BP 134/87
[2021-02-22] MEDS: CYCLOBENZAPRINE HCL 10 MG TABLET PO PRN ×2 (02:33→12:15)
[2021-02-22] MEDS: TraMADol HCL 50 MG TABLET PO PRN ×2 (02:34→12:15)
[2021-02-22 03:49] VITALS: BP 123/78
[2021-02-22] MEDS: LEVOTHYROXINE SODIUM 75 MCG TABLET PO SCH (05:50)
[2021-02-22 07:30] VITALS: BP 116/81
[2021-02-22] MEDS: QUEtiapine FUMARATE 100 MG TABLET PO SCH (07:57)
[2021-02-22] MEDS: SENNA/DOCUSATE SODIUM 8.6-50 MG TABLET PO SCH ×2 (07:57→20:33)
[2021-02-22] MEDS: MULTIVITAMINS, THERAPEUTIC TABLET PO SCH (07:57)
[2021-02-22] MEDS: NICOTINE 21 MG/24 HOUR PATCH TD SCH (07:57)
[2021-02-22] MEDS: THIAMINE 100 MG TABLET PO SCH (07:58)
[2021-02-22] MEDS: TAMSULOSIN HCL 0.4 MG CAPSULE PO SCH (07:58)
[2021-02-22] MEDS: HEPARIN SODIUM,PORCINE 5,000 UNITS/ML VIAL SQ SCH ×2 (07:58→15:32)
[2021-02-22] MEDS: GABAPENTIN 100 MG CAPSULE PO SCH ×3 (07:58→20:33)
[2021-02-22] MEDS: BusPIRone HCL 15 MG TABLET PO SCH ×2 (07:58→20:33)
[2021-02-22] MEDS: PANTOPRAZOLE SODIUM 40 MG DR TABLET PO SCH (07:58)
[2021-02-22] MEDS: FOLIC ACID 1 MG TABLET PO SCH (07:58)
[2021-02-22] MEDS: AmLODIPine BESYLATE 5 MG TABLET PO SCH (07:58)
[2021-02-22] MEDS: ACETAMINOPHEN 325 MG TABLET PO PRN (15:32)
[2021-02-22 20:30] VITALS: BP 119/80
[2021-02-22] MEDS: QUEtiapine FUMARATE 200 MG TABLET PO SCH (20:33)
[2021-02-23] MEDS: HEPARIN SODIUM,PORCINE 5,000 UNITS/ML VIAL SQ SCH ×4 (00:22→23:34)
[2021-02-23] MEDS: CYCLOBENZAPRINE HCL 10 MG TABLET PO PRN ×3 (03:02→18:27)
[2021-02-23] MEDS: ACETAMINOPHEN 325 MG TABLET PO PRN ×4 (03:02→20:02)
[2021-02-23 03:05] VITALS: BP 115/77
[2021-02-23] MEDS: LEVOTHYROXINE SODIUM 75 MCG TABLET PO SCH (06:29)
[2021-02-23 07:34] VITALS: BP 116/74
[2021-02-23] MEDS: SENNA/DOCUSATE SODIUM 8.6-50 MG TABLET PO SCH ×2 (10:20→20:02)
[2021-02-23] MEDS: BusPIRone HCL 15 MG TABLET PO SCH ×2 (10:20→20:02)
[2021-02-23] MEDS: NICOTINE 21 MG/24 HOUR PATCH TD SCH (10:20)
[2021-02-23] MEDS: PANTOPRAZOLE SODIUM 40 MG DR TABLET PO SCH (10:21)
[2021-02-23] MEDS: MULTIVITAMINS, THERAPEUTIC TABLET PO SCH (10:21)
[2021-02-23] MEDS: TAMSULOSIN HCL 0.4 MG CAPSULE PO SCH (10:21)
[2021-02-23] MEDS: THIAMINE 100 MG TABLET PO SCH (10:21)
[2021-02-23] MEDS: GABAPENTIN 100 MG CAPSULE PO SCH ×3 (10:21→20:02)
[2021-02-23] MEDS: FOLIC ACID 1 MG TABLET PO SCH (10:21)
[2021-02-23] MEDS: QUEtiapine FUMARATE 100 MG TABLET PO SCH (10:21)
[2021-02-23] MEDS: AmLODIPine BESYLATE 5 MG TABLET PO SCH (10:21)
[2021-02-23 12:50] LABS: APPEARANCE,URINE CLEAR (CLEAR); BILIRUBIN,URINE NEGATIVE (NEGATIVE); GLUCOSE, URINE (UA) NEGATIVE (NEGATIVE); KETONES,URINE NEGATIVE (NEGATIVE); LEUKOCYTE ESTERASE ,URINE NEGATIVE (NEGATIVE); NITRATE,URINE NEGATIVE (NEGATIVE); OCCULT BLOOD,URINE NEGATIVE (NEGATIVE); PROTEIN,URINE NEGATIVE (NEGATIVE); UROBILINOGEN,URINE 0.2 mg/dL (<=1.0)
[2021-02-23 12:51] LABS: BACTERIA,URINE None Seen /HPF (None Seen); RBC,URINE None Seen /HPF (0-2); WBC,URINE None Seen /HPF (0-5)
[2021-02-23 15:24] VITALS: BP 114/78
[2021-02-23] MEDS: QUEtiapine FUMARATE 200 MG TABLET PO SCH (20:02)
[2021-02-23 20:05] VITALS: BP 91/65
[2021-02-24] MEDS: ACETAMINOPHEN 325 MG TABLET PO PRN ×5 (00:29→22:59)
[2021-02-24 02:41] VITALS: BP 100/74
[2021-02-24] MEDS: CYCLOBENZAPRINE HCL 10 MG TABLET PO PRN ×3 (06:03→22:59)
[2021-02-24] MEDS: LEVOTHYROXINE SODIUM 75 MCG TABLET PO SCH (06:03)
[2021-02-24] MEDS: SENNA/DOCUSATE SODIUM 8.6-50 MG TABLET PO SCH ×2 (08:42→19:50)
[2021-02-24] MEDS: PANTOPRAZOLE SODIUM 40 MG DR TABLET PO SCH (08:42)
[2021-02-24] MEDS: GABAPENTIN 100 MG CAPSULE PO SCH ×3 (08:42→19:50)
[2021-02-24] MEDS: QUEtiapine FUMARATE 100 MG TABLET PO SCH (08:42)
[2021-02-24] MEDS: THIAMINE 100 MG TABLET PO SCH (08:42)
[2021-02-24] MEDS: BusPIRone HCL 15 MG TABLET PO SCH ×2 (08:42→19:50)
[2021-02-24] MEDS: HEPARIN SODIUM,PORCINE 5,000 UNITS/ML VIAL SQ SCH ×2 (08:42→17:09)
[2021-02-24] MEDS: AmLODIPine BESYLATE 5 MG TABLET PO SCH (08:42)
[2021-02-24] MEDS: FOLIC ACID 1 MG TABLET PO SCH (08:42)
[2021-02-24] MEDS: NICOTINE 21 MG/24 HOUR PATCH TD SCH (08:42)
[2021-02-24] MEDS: MULTIVITAMINS, THERAPEUTIC TABLET PO SCH (08:42)
[2021-02-24] MEDS: TAMSULOSIN HCL 0.4 MG CAPSULE PO SCH (08:42)
[2021-02-24 10:18] VITALS: BP 97/71
[2021-02-24 16:09] VITALS: BP 118/70
[2021-02-24 19:41] VITALS: BP 113/82
[2021-02-24] MEDS: QUEtiapine FUMARATE 200 MG TABLET PO SCH (19:50)
[2021-02-24] MEDS: DOCUSATE SODIUM 100 MG CAPSULE PO PRN (19:50)
[2021-02-25] MEDS: HEPARIN SODIUM,PORCINE 5,000 UNITS/ML VIAL SQ SCH ×4 (00:50→23:22)
[2021-02-25 04:23] VITALS: BP 128/79
[2021-02-25] MEDS: LEVOTHYROXINE SODIUM 75 MCG TABLET PO SCH (06:13)
[2021-02-25 08:00] VITALS: BP 131/89
[2021-02-25] MEDS: SENNA/DOCUSATE SODIUM 8.6-50 MG TABLET PO SCH ×2 (09:12→20:14)
[2021-02-25] MEDS: BusPIRone HCL 15 MG TABLET PO SCH ×2 (09:12→20:14)
[2021-02-25] MEDS: CYCLOBENZAPRINE HCL 10 MG TABLET PO PRN ×2 (09:13→16:47)
[2021-02-25] MEDS: PANTOPRAZOLE SODIUM 40 MG DR TABLET PO SCH (09:13)
[2021-02-25] MEDS: ACETAMINOPHEN 325 MG TABLET PO PRN ×3 (09:13→20:17)
[2021-02-25] MEDS: GABAPENTIN 100 MG CAPSULE PO SCH ×3 (09:13→20:14)
[2021-02-25] MEDS: MULTIVITAMINS, THERAPEUTIC TABLET PO SCH (09:13)
[2021-02-25] MEDS: FOLIC ACID 1 MG TABLET PO SCH (09:14)
[2021-02-25] MEDS: THIAMINE 100 MG TABLET PO SCH (09:14)
[2021-02-25] MEDS: AmLODIPine BESYLATE 5 MG TABLET PO SCH (09:14)
[2021-02-25] MEDS: TAMSULOSIN HCL 0.4 MG CAPSULE PO SCH (09:15)
[2021-02-25] MEDS: NICOTINE 21 MG/24 HOUR PATCH TD SCH (09:15)
[2021-02-25] MEDS: QUEtiapine FUMARATE 100 MG TABLET PO SCH (09:17)
[2021-02-25 15:00] VITALS: BP 110/75
[2021-02-25] MEDS: BISACODYL 10 MG RECTAL RECTAL SUPPOSITORY PR PRN (16:47)
[2021-02-25 19:24] VITALS: BP 132/83
[2021-02-25] MEDS: QUEtiapine FUMARATE 200 MG TABLET PO SCH (20:33)
[2021-02-26] MEDS: ACETAMINOPHEN 325 MG TABLET PO PRN ×5 (01:12→20:09)
[2021-02-26] MEDS: CYCLOBENZAPRINE HCL 10 MG TABLET PO PRN ×3 (01:12→20:10)
[2021-02-26 05:12] VITALS: BP 131/78
[2021-02-26] MEDS: LEVOTHYROXINE SODIUM 75 MCG TABLET PO SCH (05:16)
[2021-02-26] MEDS: DOCUSATE SODIUM 100 MG CAPSULE PO PRN (09:08)
[2021-02-26] MEDS: AmLODIPine BESYLATE 5 MG TABLET PO SCH (09:09)
[2021-02-26] MEDS: TAMSULOSIN HCL 0.4 MG CAPSULE PO SCH (09:09)
[2021-02-26] MEDS: MULTIVITAMINS, THERAPEUTIC TABLET PO SCH (09:09)
[2021-02-26] MEDS: QUEtiapine FUMARATE 100 MG TABLET PO SCH (09:09)
[2021-02-26] MEDS: THIAMINE 100 MG TABLET PO SCH (09:09)
[2021-02-26] MEDS: GABAPENTIN 100 MG CAPSULE PO SCH ×3 (09:09→20:05)
[2021-02-26] MEDS: PANTOPRAZOLE SODIUM 40 MG DR TABLET PO SCH (09:09)
[2021-02-26] MEDS: FOLIC ACID 1 MG TABLET PO SCH (09:09)
[2021-02-26 09:10] VITALS: BP 124/81
[2021-02-26] MEDS: BusPIRone HCL 15 MG TABLET PO SCH ×2 (09:10→20:04)
[2021-02-26] MEDS: HEPARIN SODIUM,PORCINE 5,000 UNITS/ML VIAL SQ SCH ×2 (09:10→16:02)
[2021-02-26] MEDS: NICOTINE 21 MG/24 HOUR PATCH TD SCH (09:10)
[2021-02-26] MEDS: SENNA/DOCUSATE SODIUM 8.6-50 MG TABLET PO SCH ×2 (09:10→20:05)
[2021-02-26 16:05] VITALS: BP 135/86
[2021-02-26 19:30] VITALS: BP 141/91
[2021-02-26] MEDS: QUEtiapine FUMARATE 200 MG TABLET PO SCH (20:04)
[2021-02-27] MEDS: HEPARIN SODIUM,PORCINE 5,000 UNITS/ML VIAL SQ SCH ×3 (00:05→16:45)
[2021-02-27] MEDS: ACETAMINOPHEN 325 MG TABLET PO PRN ×5 (00:09→18:33)
[2021-02-27] MEDS: CYCLOBENZAPRINE HCL 10 MG TABLET PO PRN ×3 (04:36→20:12)
[2021-02-27 04:45] VITALS: BP 112/73
[2021-02-27] MEDS: LEVOTHYROXINE SODIUM 75 MCG TABLET PO SCH (06:21)
[2021-02-27 09:40] VITALS: BP 121/73
[2021-02-27] MEDS: GABAPENTIN 100 MG CAPSULE PO SCH ×3 (10:08→20:12)
[2021-02-27] MEDS: SENNA/DOCUSATE SODIUM 8.6-50 MG TABLET PO SCH ×2 (10:08→20:12)
[2021-02-27] MEDS: PANTOPRAZOLE SODIUM 40 MG DR TABLET PO SCH (10:08)
[2021-02-27] MEDS: THIAMINE 100 MG TABLET PO SCH (10:09)
[2021-02-27] MEDS: BusPIRone HCL 15 MG TABLET PO SCH ×2 (10:09→20:12)
[2021-02-27] MEDS: FOLIC ACID 1 MG TABLET PO SCH (10:09)
[2021-02-27] MEDS: QUEtiapine FUMARATE 100 MG TABLET PO SCH (10:09)
[2021-02-27] MEDS: TAMSULOSIN HCL 0.4 MG CAPSULE PO SCH (10:09)
[2021-02-27] MEDS: AmLODIPine BESYLATE 5 MG TABLET PO SCH (10:09)
[2021-02-27] MEDS: MULTIVITAMINS, THERAPEUTIC TABLET PO SCH (10:09)
[2021-02-27] MEDS: NICOTINE 21 MG/24 HOUR PATCH TD SCH (10:10)
[2021-02-27 15:24] VITALS: BP 105/67
[2021-02-27 19:28] VITALS: BP 120/81
[2021-02-27] MEDS: QUEtiapine FUMARATE 200 MG TABLET PO SCH (20:11)
[2021-02-27] MEDS ORDERED: ZOLPIDEM TARTRATE 5 MG TABLET PO ONE (21:00)
[2021-02-28] MEDS: HEPARIN SODIUM,PORCINE 5,000 UNITS/ML VIAL SQ SCH ×3 (00:33→16:00)
[2021-02-28] MEDS: ACETAMINOPHEN 325 MG TABLET PO PRN ×5 (00:33→18:10)
[2021-02-28 04:36] VITALS: BP 129/77
[2021-02-28] MEDS: CYCLOBENZAPRINE HCL 10 MG TABLET PO PRN ×3 (04:36→20:09)
[2021-02-28] MEDS: LEVOTHYROXINE SODIUM 75 MCG TABLET PO SCH (05:59)
[2021-02-28] MEDS: AmLODIPine BESYLATE 5 MG TABLET PO SCH (09:00)
[2021-02-28] MEDS: TAMSULOSIN HCL 0.4 MG CAPSULE PO SCH (09:02)
[2021-02-28] MEDS: MULTIVITAMINS, THERAPEUTIC TABLET PO SCH (09:02)
[2021-02-28] MEDS: QUEtiapine FUMARATE 100 MG TABLET PO SCH (09:02)
[2021-02-28] MEDS: GABAPENTIN 100 MG CAPSULE PO SCH ×3 (09:02→20:09)
[2021-02-28] MEDS: THIAMINE 100 MG TABLET PO SCH (09:02)
[2021-02-28] MEDS: PANTOPRAZOLE SODIUM 40 MG DR TABLET PO SCH (09:02)
[2021-02-28] MEDS: SENNA/DOCUSATE SODIUM 8.6-50 MG TABLET PO SCH ×2 (09:02→20:08)
[2021-02-28] MEDS: BusPIRone HCL 15 MG TABLET PO SCH ×2 (09:02→20:09)
[2021-02-28 09:03] VITALS: BP 95/68
[2021-02-28] MEDS: FOLIC ACID 1 MG TABLET PO SCH (09:03)
[2021-02-28] MEDS: NICOTINE 21 MG/24 HOUR PATCH TD SCH (09:13)
[2021-02-28] MEDS ORDERED: HEPARIN SODIUM,PORCINE 100 UNITS/ML 5 ML VIAL IVP ONE (18:00)
[2021-02-28 18:06] VITALS: BP 121/80
[2021-02-28] MEDS: QUEtiapine FUMARATE 200 MG TABLET PO SCH (20:09)
[2021-02-28] MEDS: ZOLPIDEM TARTRATE 10 MG TABLET PO PRN (20:09)
[2021-02-28 20:13] VITALS: BP 128/83
[2021-03-01] MEDS: HEPARIN SODIUM,PORCINE 5,000 UNITS/ML VIAL SQ SCH ×4 (00:46→22:43)
[2021-03-01] MEDS: ACETAMINOPHEN 325 MG TABLET PO PRN ×5 (00:46→20:14)
[2021-03-01 05:02] VITALS: BP 125/76
[2021-03-01] MEDS: CYCLOBENZAPRINE HCL 10 MG TABLET PO PRN ×3 (05:06→21:24)
[2021-03-01] MEDS: LEVOTHYROXINE SODIUM 75 MCG TABLET PO SCH (05:06)
[2021-03-01 08:58] VITALS: BP 107/74
[2021-03-01] MEDS: SENNA/DOCUSATE SODIUM 8.6-50 MG TABLET PO SCH ×2 (09:21→20:14)
[2021-03-01] MEDS: NICOTINE 21 MG/24 HOUR PATCH TD SCH (09:21)
[2021-03-01] MEDS: MULTIVITAMINS, THERAPEUTIC TABLET PO SCH (09:22)
[2021-03-01] MEDS: THIAMINE 100 MG TABLET PO SCH (09:22)
[2021-03-01] MEDS: TAMSULOSIN HCL 0.4 MG CAPSULE PO SCH (09:22)
[2021-03-01] MEDS: BusPIRone HCL 15 MG TABLET PO SCH ×2 (09:24→20:14)
[2021-03-01] MEDS: FOLIC ACID 1 MG TABLET PO SCH (09:24)
[2021-03-01] MEDS: QUEtiapine FUMARATE 100 MG TABLET PO SCH (09:24)
[2021-03-01] MEDS: PANTOPRAZOLE SODIUM 40 MG DR TABLET PO SCH (09:24)
[2021-03-01] MEDS: AmLODIPine BESYLATE 5 MG TABLET PO SCH (09:24)
[2021-03-01] MEDS: GABAPENTIN 100 MG CAPSULE PO SCH ×3 (09:24→20:13)
[2021-03-01] MEDS: BISACODYL 10 MG RECTAL RECTAL SUPPOSITORY PR PRN (12:02)
[2021-03-01 15:24] VITALS: BP 125/84
[2021-03-01] MEDS: FLUTICASONE PROPIONATE 50 MCG/SPRAY 16 GM NASAL SPRAY NASAL SCH (15:26)
[2021-03-01] MEDS: QUEtiapine FUMARATE 200 MG TABLET PO SCH (20:14)
[2021-03-01] MEDS: ZOLPIDEM TARTRATE 10 MG TABLET PO PRN (21:24)
[2021-03-02] MEDS: ACETAMINOPHEN 325 MG TABLET PO PRN ×6 (00:15→23:09)
[2021-03-02 05:30] VITALS: BP 125/97
[2021-03-02] MEDS: LEVOTHYROXINE SODIUM 75 MCG TABLET PO SCH (05:35)
[2021-03-02] MEDS: CYCLOBENZAPRINE HCL 10 MG TABLET PO PRN ×2 (05:35→13:44)
[2021-03-02 07:49] VITALS: BP 129/93
[2021-03-02] MEDS: HEPARIN SODIUM,PORCINE 5,000 UNITS/ML VIAL SQ SCH ×3 (08:00→23:09)
[2021-03-02] MEDS: FLUTICASONE PROPIONATE 50 MCG/SPRAY 16 GM NASAL SPRAY NASAL SCH (09:33)
[2021-03-02] MEDS: QUEtiapine FUMARATE 100 MG TABLET PO SCH (09:34)
[2021-03-02] MEDS: SENNA/DOCUSATE SODIUM 8.6-50 MG TABLET PO SCH ×2 (09:34→20:14)
[2021-03-02] MEDS: THIAMINE 100 MG TABLET PO SCH (09:34)
[2021-03-02] MEDS: AmLODIPine BESYLATE 5 MG TABLET PO SCH (09:34)
[2021-03-02] MEDS: TAMSULOSIN HCL 0.4 MG CAPSULE PO SCH (09:34)
[2021-03-02] MEDS: GABAPENTIN 100 MG CAPSULE PO SCH ×3 (09:34→20:14)
[2021-03-02] MEDS: MULTIVITAMINS, THERAPEUTIC TABLET PO SCH (09:34)
[2021-03-02] MEDS: FOLIC ACID 1 MG TABLET PO SCH (09:34)
[2021-03-02] MEDS: PANTOPRAZOLE SODIUM 40 MG DR TABLET PO SCH (09:34)
[2021-03-02] MEDS: BusPIRone HCL 15 MG TABLET PO SCH ×2 (09:35→20:15)
[2021-03-02] MEDS: NICOTINE 21 MG/24 HOUR PATCH TD SCH (09:36)
[2021-03-02 16:48] VITALS: BP 135/89
[2021-03-02 19:34] VITALS: BP 141/84
[2021-03-02] MEDS: QUEtiapine FUMARATE 200 MG TABLET PO SCH (20:14)
[2021-03-02] MEDS: ZOLPIDEM TARTRATE 10 MG TABLET PO PRN (20:17)
[2021-03-03] MEDS: ACETAMINOPHEN 325 MG TABLET PO PRN ×5 (07:31→23:24)
[2021-03-03] MEDS: LEVOTHYROXINE SODIUM 75 MCG TABLET PO SCH (07:31)
[2021-03-03] MEDS: FLUTICASONE PROPIONATE 50 MCG/SPRAY 16 GM NASAL SPRAY NASAL SCH (09:00)
[2021-03-03] MEDS: PANTOPRAZOLE SODIUM 40 MG DR TABLET PO SCH (09:09)
[2021-03-03] MEDS: SENNA/DOCUSATE SODIUM 8.6-50 MG TABLET PO SCH ×2 (09:09→19:39)
[2021-03-03] MEDS: THIAMINE 100 MG TABLET PO SCH (09:09)
[2021-03-03] MEDS: QUEtiapine FUMARATE 100 MG TABLET PO SCH (09:09)
[2021-03-03] MEDS: BusPIRone HCL 15 MG TABLET PO SCH ×2 (09:09→19:40)
[2021-03-03] MEDS: FOLIC ACID 1 MG TABLET PO SCH (09:09)
[2021-03-03] MEDS: AmLODIPine BESYLATE 5 MG TABLET PO SCH (09:09)
[2021-03-03] MEDS: MULTIVITAMINS, THERAPEUTIC TABLET PO SCH (09:09)
[2021-03-03] MEDS: TAMSULOSIN HCL 0.4 MG CAPSULE PO SCH (09:09)
[2021-03-03] MEDS: HEPARIN SODIUM,PORCINE 5,000 UNITS/ML VIAL SQ SCH ×3 (09:09→23:21)
[2021-03-03] MEDS: NICOTINE 21 MG/24 HOUR PATCH TD SCH (09:10)
[2021-03-03] MEDS: GABAPENTIN 100 MG CAPSULE PO SCH ×3 (09:10→19:40)
[2021-03-03 15:34] VITALS: BP 108/61
[2021-03-03] MEDS: CYCLOBENZAPRINE HCL 10 MG TABLET PO PRN ×2 (15:44→23:20)
[2021-03-03] MEDS: QUEtiapine FUMARATE 200 MG TABLET PO SCH (19:39)
[2021-03-03] MEDS: MELATONIN 5 MG TABLET PO PRN (19:40)
[2021-03-03 19:55] VITALS: BP 144/92
[2021-03-04 04:03] VITALS: BP 126/86
[2021-03-04] MEDS: ACETAMINOPHEN 325 MG TABLET PO PRN ×4 (04:40→20:48)
[2021-03-04] MEDS: LEVOTHYROXINE SODIUM 75 MCG TABLET PO SCH (05:55)
[2021-03-04] MEDS: CYCLOBENZAPRINE HCL 10 MG TABLET PO PRN ×3 (06:41→23:54)
[2021-03-04 07:22] VITALS: BP 130/82
[2021-03-04] MEDS: FOLIC ACID 1 MG TABLET PO SCH (08:34)
[2021-03-04] MEDS: GABAPENTIN 100 MG CAPSULE PO SCH ×3 (08:34→20:46)
[2021-03-04] MEDS: HEPARIN SODIUM,PORCINE 5,000 UNITS/ML VIAL SQ SCH ×3 (08:34→23:54)
[2021-03-04] MEDS: MULTIVITAMINS, THERAPEUTIC TABLET PO SCH (08:34)
[2021-03-04] MEDS: THIAMINE 100 MG TABLET PO SCH (08:34)
[2021-03-04] MEDS: SENNA/DOCUSATE SODIUM 8.6-50 MG TABLET PO SCH ×2 (08:34→20:46)
[2021-03-04] MEDS: AmLODIPine BESYLATE 5 MG TABLET PO SCH (08:34)
[2021-03-04] MEDS: PANTOPRAZOLE SODIUM 40 MG DR TABLET PO SCH (08:34)
[2021-03-04] MEDS: NICOTINE 21 MG/24 HOUR PATCH TD SCH (08:35)
[2021-03-04] MEDS: TAMSULOSIN HCL 0.4 MG CAPSULE PO SCH (08:35)
[2021-03-04] MEDS: QUEtiapine FUMARATE 100 MG TABLET PO SCH (08:35)
[2021-03-04] MEDS: BusPIRone HCL 15 MG TABLET PO SCH ×2 (08:35→20:47)
[2021-03-04] MEDS: FLUTICASONE PROPIONATE 50 MCG/SPRAY 16 GM NASAL SPRAY NASAL SCH (09:00)
[2021-03-04 15:13] VITALS: BP 128/88
[2021-03-04 20:46] VITALS: BP 122/86
[2021-03-04] MEDS: MELATONIN 5 MG TABLET PO PRN (20:47)
[2021-03-04] MEDS: QUEtiapine FUMARATE 200 MG TABLET PO SCH (20:53)
[2021-03-05] MEDS: LEVOTHYROXINE SODIUM 75 MCG TABLET PO SCH (06:04)
[2021-03-05] MEDS: ACETAMINOPHEN 325 MG TABLET PO PRN ×4 (06:05→20:25)
[2021-03-05] MEDS: HEPARIN SODIUM,PORCINE 5,000 UNITS/ML VIAL SQ SCH ×2 (08:00→15:40)
[2021-03-05] MEDS: CYCLOBENZAPRINE HCL 10 MG TABLET PO PRN ×2 (08:07→18:22)
[2021-03-05] MEDS: DOCUSATE SODIUM 100 MG CAPSULE PO PRN (08:07)
[2021-03-05] MEDS: TAMSULOSIN HCL 0.4 MG CAPSULE PO SCH (08:07)
[2021-03-05] MEDS: PANTOPRAZOLE SODIUM 40 MG DR TABLET PO SCH (08:07)
[2021-03-05] MEDS: AmLODIPine BESYLATE 5 MG TABLET PO SCH ×2 (08:07→08:22)
[2021-03-05] MEDS: THIAMINE 100 MG TABLET PO SCH (08:08)
[2021-03-05] MEDS: FOLIC ACID 1 MG TABLET PO SCH (08:08)
[2021-03-05] MEDS: MULTIVITAMINS, THERAPEUTIC TABLET PO SCH (08:08)
[2021-03-05] MEDS: FLUTICASONE PROPIONATE 50 MCG/SPRAY 16 GM NASAL SPRAY NASAL SCH (08:08)
[2021-03-05] MEDS: NICOTINE 21 MG/24 HOUR PATCH TD SCH (08:09)
[2021-03-05] MEDS: QUEtiapine FUMARATE 100 MG TABLET PO SCH (08:09)
[2021-03-05] MEDS: GABAPENTIN 100 MG CAPSULE PO SCH ×3 (08:09→20:23)
[2021-03-05] MEDS: SENNA/DOCUSATE SODIUM 8.6-50 MG TABLET PO SCH ×2 (08:09→20:23)
[2021-03-05] MEDS: BusPIRone HCL 15 MG TABLET PO SCH ×2 (08:09→20:23)
[2021-03-05 08:30] VITALS: BP 108/75
[2021-03-05 16:08] VITALS: BP 132/83
[2021-03-05] MEDS: QUEtiapine FUMARATE 200 MG TABLET PO SCH (20:22)
[2021-03-05] MEDS: MELATONIN 5 MG TABLET PO PRN (20:24)
[2021-03-05 20:48] VITALS: BP 138/83
[2021-03-06] MEDS: HEPARIN SODIUM,PORCINE 5,000 UNITS/ML VIAL SQ SCH ×3 (00:05→16:55)
[2021-03-06] MEDS: ACETAMINOPHEN 325 MG TABLET PO PRN ×3 (00:16→16:57)
[2021-03-06] MEDS: CYCLOBENZAPRINE HCL 10 MG TABLET PO PRN ×3 (02:56→17:58)
[2021-03-06 05:05] VITALS: BP 106/72
[2021-03-06] MEDS: LEVOTHYROXINE SODIUM 75 MCG TABLET PO SCH (06:07)
[2021-03-06 07:48] VITALS: BP 133/91
[2021-03-06] MEDS: TAMSULOSIN HCL 0.4 MG CAPSULE PO SCH (08:37)
[2021-03-06] MEDS: SENNA/DOCUSATE SODIUM 8.6-50 MG TABLET PO SCH ×2 (08:37→20:10)
[2021-03-06] MEDS: AmLODIPine BESYLATE 5 MG TABLET PO SCH (08:38)
[2021-03-06] MEDS: QUEtiapine FUMARATE 100 MG TABLET PO SCH (08:38)
[2021-03-06] MEDS: BusPIRone HCL 15 MG TABLET PO SCH ×2 (08:38→20:10)
[2021-03-06] MEDS: GABAPENTIN 100 MG CAPSULE PO SCH ×3 (08:38→20:10)
[2021-03-06] MEDS: THIAMINE 100 MG TABLET PO SCH (08:38)
[2021-03-06] MEDS: MULTIVITAMINS, THERAPEUTIC TABLET PO SCH (08:38)
[2021-03-06] MEDS: FOLIC ACID 1 MG TABLET PO SCH (08:38)
[2021-03-06] MEDS: PANTOPRAZOLE SODIUM 40 MG DR TABLET PO SCH (08:38)
[2021-03-06] MEDS: NICOTINE 21 MG/24 HOUR PATCH TD SCH (08:39)
[2021-03-06] MEDS: FLUTICASONE PROPIONATE 50 MCG/SPRAY 16 GM NASAL SPRAY NASAL SCH (11:29)
[2021-03-06 15:39] VITALS: BP 139/83
[2021-03-06] MEDS: QUEtiapine FUMARATE 200 MG TABLET PO SCH (20:10)
[2021-03-06] MEDS: MELATONIN 5 MG TABLET PO PRN (20:13)
[2021-03-07] MEDS: ACETAMINOPHEN 325 MG TABLET PO PRN ×4 (00:46→21:09)
[2021-03-07 05:59] VITALS: BP 115/78
[2021-03-07] MEDS: LEVOTHYROXINE SODIUM 75 MCG TABLET PO SCH (06:07)
[2021-03-07] MEDS: CYCLOBENZAPRINE HCL 10 MG TABLET PO PRN ×2 (06:09→15:38)
[2021-03-07 07:34] VITALS: BP 118/77
[2021-03-07] MEDS: NICOTINE 21 MG/24 HOUR PATCH TD SCH (09:09)
[2021-03-07] MEDS: SENNA/DOCUSATE SODIUM 8.6-50 MG TABLET PO SCH ×2 (09:09→20:12)
[2021-03-07] MEDS: FLUTICASONE PROPIONATE 50 MCG/SPRAY 16 GM NASAL SPRAY NASAL SCH (09:09)
[2021-03-07] MEDS: THIAMINE 100 MG TABLET PO SCH (09:10)
[2021-03-07] MEDS: QUEtiapine FUMARATE 100 MG TABLET PO SCH (09:10)
[2021-03-07] MEDS: FOLIC ACID 1 MG TABLET PO SCH (09:10)
[2021-03-07] MEDS: AmLODIPine BESYLATE 5 MG TABLET PO SCH (09:10)
[2021-03-07] MEDS: TAMSULOSIN HCL 0.4 MG CAPSULE PO SCH (09:10)
[2021-03-07] MEDS: GABAPENTIN 100 MG CAPSULE PO SCH ×3 (09:10→20:11)
[2021-03-07] MEDS: PANTOPRAZOLE SODIUM 40 MG DR TABLET PO SCH (09:11)
[2021-03-07] MEDS: HEPARIN SODIUM,PORCINE 5,000 UNITS/ML VIAL SQ SCH ×3 (09:11→15:38)
[2021-03-07] MEDS: MULTIVITAMINS, THERAPEUTIC TABLET PO SCH (09:15)
[2021-03-07] MEDS: BusPIRone HCL 15 MG TABLET PO SCH ×2 (09:15→20:11)
[2021-03-07 16:00] VITALS: BP 133/83
[2021-03-07] MEDS: QUEtiapine FUMARATE 200 MG TABLET PO SCH (20:11)
[2021-03-07] MEDS: MELATONIN 5 MG TABLET PO PRN (20:12)
[2021-03-07 20:50] VITALS: BP 133/85
[2021-03-08] MEDS: CYCLOBENZAPRINE HCL 10 MG TABLET PO PRN ×3 (04:03→23:19)
[2021-03-08] MEDS: ACETAMINOPHEN 325 MG TABLET PO PRN ×4 (04:04→20:23)
[2021-03-08 04:07] VITALS: BP 121/83
[2021-03-08] MEDS: LEVOTHYROXINE SODIUM 75 MCG TABLET PO SCH (05:37)
[2021-03-08 08:00] VITALS: BP 124/91
[2021-03-08] MEDS: TAMSULOSIN HCL 0.4 MG CAPSULE PO SCH (08:08)
[2021-03-08] MEDS: HEPARIN SODIUM,PORCINE 5,000 UNITS/ML VIAL SQ SCH ×4 (08:09→23:18)
[2021-03-08] MEDS: AmLODIPine BESYLATE 5 MG TABLET PO SCH (08:09)
[2021-03-08] MEDS: SENNA/DOCUSATE SODIUM 8.6-50 MG TABLET PO SCH ×2 (08:09→20:22)
[2021-03-08] MEDS: THIAMINE 100 MG TABLET PO SCH (08:09)
[2021-03-08] MEDS: QUEtiapine FUMARATE 100 MG TABLET PO SCH (08:09)
[2021-03-08] MEDS: GABAPENTIN 100 MG CAPSULE PO SCH ×3 (08:09→20:22)
[2021-03-08] MEDS: PANTOPRAZOLE SODIUM 40 MG DR TABLET PO SCH (08:09)
[2021-03-08] MEDS: MULTIVITAMINS, THERAPEUTIC TABLET PO SCH (08:09)
[2021-03-08] MEDS: BusPIRone HCL 15 MG TABLET PO SCH ×2 (08:09→20:22)
[2021-03-08] MEDS: NICOTINE 21 MG/24 HOUR PATCH TD SCH (08:09)
[2021-03-08] MEDS: FOLIC ACID 1 MG TABLET PO SCH (08:09)
[2021-03-08] MEDS: FLUTICASONE PROPIONATE 50 MCG/SPRAY 16 GM NASAL SPRAY NASAL SCH (08:19)
[2021-03-08 16:05] VITALS: BP 126/84
[2021-03-08] MEDS: DOCUSATE SODIUM 100 MG CAPSULE PO PRN (18:10)
[2021-03-08] MEDS: BISACODYL 10 MG RECTAL RECTAL SUPPOSITORY PR PRN (18:10)
[2021-03-08 19:30] VITALS: BP 130/82
[2021-03-08] MEDS: MELATONIN 5 MG TABLET PO PRN (20:23)
[2021-03-08] MEDS: QUEtiapine FUMARATE 200 MG TABLET PO SCH (20:24)
[2021-03-09] MEDS: ACETAMINOPHEN 325 MG TABLET PO PRN ×4 (03:06→23:59)
[2021-03-09 03:07] VITALS: BP 142/89
[2021-03-09 07:34] VITALS: BP 139/81
[2021-03-09] MEDS: HEPARIN SODIUM,PORCINE 5,000 UNITS/ML VIAL SQ SCH ×3 (08:00→23:58)
[2021-03-09] MEDS: GABAPENTIN 100 MG CAPSULE PO SCH ×3 (08:30→20:08)
[2021-03-09] MEDS: TAMSULOSIN HCL 0.4 MG CAPSULE PO SCH (08:30)
[2021-03-09] MEDS: PANTOPRAZOLE SODIUM 40 MG DR TABLET PO SCH (08:30)
[2021-03-09] MEDS: FOLIC ACID 1 MG TABLET PO SCH (08:30)
[2021-03-09] MEDS: THIAMINE 100 MG TABLET PO SCH (08:30)
[2021-03-09] MEDS: SENNA/DOCUSATE SODIUM 8.6-50 MG TABLET PO SCH ×2 (08:30→20:08)
[2021-03-09] MEDS: BusPIRone HCL 15 MG TABLET PO SCH ×2 (08:31→20:08)
[2021-03-09] MEDS: CYCLOBENZAPRINE HCL 10 MG TABLET PO PRN ×2 (08:31→16:37)
[2021-03-09] MEDS: NICOTINE 21 MG/24 HOUR PATCH TD SCH (08:31)
[2021-03-09] MEDS: MULTIVITAMINS, THERAPEUTIC TABLET PO SCH (08:31)
[2021-03-09] MEDS: AmLODIPine BESYLATE 5 MG TABLET PO SCH (08:31)
[2021-03-09] MEDS: LEVOTHYROXINE SODIUM 75 MCG TABLET PO SCH (08:32)
[2021-03-09] MEDS: FLUTICASONE PROPIONATE 50 MCG/SPRAY 16 GM NASAL SPRAY NASAL SCH (08:33)
[2021-03-09] MEDS: QUEtiapine FUMARATE 100 MG TABLET PO SCH (08:33)
[2021-03-09 16:02] VITALS: BP 131/78
[2021-03-09] MEDS: QUEtiapine FUMARATE 200 MG TABLET PO SCH (20:08)
[2021-03-09] MEDS: MELATONIN 5 MG TABLET PO PRN (20:14)
[2021-03-09 20:39] VITALS: BP 113/67
[2021-03-10] MEDS: CYCLOBENZAPRINE HCL 10 MG TABLET PO PRN ×2 (02:06→15:39)
[2021-03-10 05:39] VITALS: BP 103/78
[2021-03-10] MEDS: LEVOTHYROXINE SODIUM 75 MCG TABLET PO SCH (06:34)
[2021-03-10 07:49] VITALS: BP 140/79
[2021-03-10] MEDS: DOCUSATE SODIUM 100 MG CAPSULE PO PRN (08:25)
[2021-03-10] MEDS: HEPARIN SODIUM,PORCINE 5,000 UNITS/ML VIAL SQ SCH ×2 (08:26→15:40)
[2021-03-10] MEDS: PANTOPRAZOLE SODIUM 40 MG DR TABLET PO SCH (08:26)
[2021-03-10] MEDS: THIAMINE 100 MG TABLET PO SCH (08:26)
[2021-03-10] MEDS: AmLODIPine BESYLATE 5 MG TABLET PO SCH (08:26)
[2021-03-10] MEDS: FLUTICASONE PROPIONATE 50 MCG/SPRAY 16 GM NASAL SPRAY NASAL SCH (08:26)
[2021-03-10] MEDS: TAMSULOSIN HCL 0.4 MG CAPSULE PO SCH (08:26)
[2021-03-10] MEDS: QUEtiapine FUMARATE 100 MG TABLET PO SCH (08:27)
[2021-03-10] MEDS: GABAPENTIN 100 MG CAPSULE PO SCH ×3 (08:27→20:55)
[2021-03-10] MEDS: MULTIVITAMINS, THERAPEUTIC TABLET PO SCH (08:27)
[2021-03-10] MEDS: NICOTINE 21 MG/24 HOUR PATCH TD SCH (08:28)
[2021-03-10] MEDS: BusPIRone HCL 15 MG TABLET PO SCH ×2 (08:29→20:55)
[2021-03-10] MEDS: FOLIC ACID 1 MG TABLET PO SCH (08:32)
[2021-03-10] MEDS: ACETAMINOPHEN 325 MG TABLET PO PRN ×3 (08:41→20:55)
[2021-03-10] MEDS: SENNA/DOCUSATE SODIUM 8.6-50 MG TABLET PO SCH ×2 (08:43→20:57)
[2021-03-10 16:21] VITALS: BP 98/64
[2021-03-10] MEDS: QUEtiapine FUMARATE 200 MG TABLET PO SCH (20:55)
[2021-03-10 20:59] VITALS: BP 132/86
[2021-03-10] MEDS: MELATONIN 5 MG TABLET PO PRN (21:01)
[2021-03-11] MEDS: LEVOTHYROXINE SODIUM 75 MCG TABLET PO SCH (05:48)
[2021-03-11] MEDS: CYCLOBENZAPRINE HCL 10 MG TABLET PO PRN ×3 (05:48→23:59)
[2021-03-11] MEDS: ACETAMINOPHEN 325 MG TABLET PO PRN ×3 (05:51→20:44)
[2021-03-11] MEDS: DOCUSATE SODIUM 100 MG CAPSULE PO PRN (08:09)
[2021-03-11] MEDS: AmLODIPine BESYLATE 5 MG TABLET PO SCH (08:10)
[2021-03-11] MEDS: NICOTINE 21 MG/24 HOUR PATCH TD SCH (08:10)
[2021-03-11] MEDS: THIAMINE 100 MG TABLET PO SCH (08:10)
[2021-03-11] MEDS: QUEtiapine FUMARATE 100 MG TABLET PO SCH (08:10)
[2021-03-11] MEDS: HEPARIN SODIUM,PORCINE 5,000 UNITS/ML VIAL SQ SCH ×3 (08:10→16:01)
[2021-03-11] MEDS: PANTOPRAZOLE SODIUM 40 MG DR TABLET PO SCH (08:10)
[2021-03-11] MEDS: TAMSULOSIN HCL 0.4 MG CAPSULE PO SCH (08:11)
[2021-03-11] MEDS: FOLIC ACID 1 MG TABLET PO SCH (08:11)
[2021-03-11] MEDS: BusPIRone HCL 15 MG TABLET PO SCH ×2 (08:11→20:45)
[2021-03-11] MEDS: GABAPENTIN 100 MG CAPSULE PO SCH ×3 (08:11→20:44)
[2021-03-11] MEDS: MULTIVITAMINS, THERAPEUTIC TABLET PO SCH (08:12)
[2021-03-11] MEDS: SENNA/DOCUSATE SODIUM 8.6-50 MG TABLET PO SCH ×2 (08:13→20:45)
[2021-03-11] MEDS: FLUTICASONE PROPIONATE 50 MCG/SPRAY 16 GM NASAL SPRAY NASAL SCH (08:13)
[2021-03-11 08:16] VITALS: BP 126/74
[2021-03-11 15:28] VITALS: BP 122/84
[2021-03-11 19:13] VITALS: BP 131/80
[2021-03-11 20:41] VITALS: BP 116/84
[2021-03-11] MEDS: QUEtiapine FUMARATE 200 MG TABLET PO SCH (20:45)
[2021-03-11] MEDS: MELATONIN 5 MG TABLET PO PRN (20:49)
[2021-03-12] MEDS: ACETAMINOPHEN 325 MG TABLET PO PRN ×4 (04:27→19:51)
[2021-03-12 04:30] VITALS: BP 109/72
[2021-03-12] MEDS: LEVOTHYROXINE SODIUM 75 MCG TABLET PO SCH (06:25)
[2021-03-12 08:05] VITALS: BP 141/85
[2021-03-12] MEDS: NICOTINE 21 MG/24 HOUR PATCH TD SCH (09:06)
[2021-03-12] MEDS: SENNA/DOCUSATE SODIUM 8.6-50 MG TABLET PO SCH ×2 (09:06→19:50)
[2021-03-12] MEDS: AmLODIPine BESYLATE 5 MG TABLET PO SCH (09:06)
[2021-03-12] MEDS: QUEtiapine FUMARATE 100 MG TABLET PO SCH (09:06)
[2021-03-12] MEDS: GABAPENTIN 100 MG CAPSULE PO SCH ×3 (09:06→19:50)
[2021-03-12] MEDS: PANTOPRAZOLE SODIUM 40 MG DR TABLET PO SCH (09:06)
[2021-03-12] MEDS: MULTIVITAMINS, THERAPEUTIC TABLET PO SCH (09:06)
[2021-03-12] MEDS: FOLIC ACID 1 MG TABLET PO SCH (09:06)
[2021-03-12] MEDS: THIAMINE 100 MG TABLET PO SCH (09:06)
[2021-03-12] MEDS: TAMSULOSIN HCL 0.4 MG CAPSULE PO SCH (09:06)
[2021-03-12] MEDS: HEPARIN SODIUM,PORCINE 5,000 UNITS/ML VIAL SQ SCH ×4 (09:07→23:30)
[2021-03-12] MEDS: BusPIRone HCL 15 MG TABLET PO SCH ×2 (09:07→19:50)
[2021-03-12] MEDS: FLUTICASONE PROPIONATE 50 MCG/SPRAY 16 GM NASAL SPRAY NASAL SCH (09:07)
[2021-03-12] MEDS: CYCLOBENZAPRINE HCL 10 MG TABLET PO PRN (10:53)
[2021-03-12] MEDS: DOCUSATE SODIUM 100 MG CAPSULE PO PRN ×2 (13:59→19:50)
[2021-03-12 15:48] VITALS: BP 123/81
[2021-03-12] MEDS: QUEtiapine FUMARATE 200 MG TABLET PO SCH (19:50)
[2021-03-12] MEDS: MELATONIN 5 MG TABLET PO PRN (20:46)
[2021-03-12 20:48] VITALS: BP 134/97
[2021-03-13] MEDS: ACETAMINOPHEN 325 MG TABLET PO PRN ×3 (01:21→15:20)
[2021-03-13 05:59] VITALS: BP 146/99
[2021-03-13] MEDS: LEVOTHYROXINE SODIUM 75 MCG TABLET PO SCH (07:07)
[2021-03-13] MEDS: HEPARIN SODIUM,PORCINE 5,000 UNITS/ML VIAL SQ SCH ×3 (08:00→23:54)
[2021-03-13] MEDS: CYCLOBENZAPRINE HCL 10 MG TABLET PO PRN ×2 (08:20→17:23)
[2021-03-13 08:24] VITALS: BP 118/79
[2021-03-13] MEDS: AmLODIPine BESYLATE 5 MG TABLET PO SCH (09:02)
[2021-03-13] MEDS: GABAPENTIN 100 MG CAPSULE PO SCH ×3 (09:02→20:20)
[2021-03-13] MEDS: DOCUSATE SODIUM 100 MG CAPSULE PO PRN ×2 (09:02→20:20)
[2021-03-13] MEDS: SENNA/DOCUSATE SODIUM 8.6-50 MG TABLET PO SCH ×2 (09:02→20:20)
[2021-03-13] MEDS: NICOTINE 21 MG/24 HOUR PATCH TD SCH (09:02)
[2021-03-13] MEDS: PANTOPRAZOLE SODIUM 40 MG DR TABLET PO SCH (09:02)
[2021-03-13] MEDS: FOLIC ACID 1 MG TABLET PO SCH (09:02)
[2021-03-13] MEDS: MULTIVITAMINS, THERAPEUTIC TABLET PO SCH (09:02)
[2021-03-13] MEDS: BusPIRone HCL 15 MG TABLET PO SCH ×2 (09:02→20:20)
[2021-03-13] MEDS: TAMSULOSIN HCL 0.4 MG CAPSULE PO SCH (09:02)
[2021-03-13] MEDS: THIAMINE 100 MG TABLET PO SCH (09:03)
[2021-03-13] MEDS: QUEtiapine FUMARATE 100 MG TABLET PO SCH (09:03)
[2021-03-13] MEDS: FLUTICASONE PROPIONATE 50 MCG/SPRAY 16 GM NASAL SPRAY NASAL SCH (09:03)
[2021-03-13 15:51] VITALS: BP 128/71
[2021-03-13] MEDS: QUEtiapine FUMARATE 200 MG TABLET PO SCH (20:19)
[2021-03-13 20:20] VITALS: BP 120/70
[2021-03-13] MEDS: MELATONIN 5 MG TABLET PO PRN (20:23)
[2021-03-14 05:20] VITALS: BP 117/68
[2021-03-14] MEDS: LEVOTHYROXINE SODIUM 75 MCG TABLET PO SCH (06:15)
[2021-03-14 08:15] VITALS: BP 125/79
[2021-03-14] MEDS: SENNA/DOCUSATE SODIUM 8.6-50 MG TABLET PO SCH ×2 (08:27→20:44)
[2021-03-14] MEDS: CYCLOBENZAPRINE HCL 10 MG TABLET PO PRN ×2 (08:27→20:44)
[2021-03-14] MEDS: HEPARIN SODIUM,PORCINE 5,000 UNITS/ML VIAL SQ SCH ×3 (08:27→23:41)
[2021-03-14] MEDS: QUEtiapine FUMARATE 100 MG TABLET PO SCH (08:27)
[2021-03-14] MEDS: THIAMINE 100 MG TABLET PO SCH (08:27)
[2021-03-14] MEDS: ACETAMINOPHEN 325 MG TABLET PO PRN ×3 (08:28→23:36)
[2021-03-14] MEDS: PANTOPRAZOLE SODIUM 40 MG DR TABLET PO SCH (08:28)
[2021-03-14] MEDS: FOLIC ACID 1 MG TABLET PO SCH (08:28)
[2021-03-14] MEDS: GABAPENTIN 100 MG CAPSULE PO SCH ×3 (08:28→20:43)
[2021-03-14] MEDS: FLUTICASONE PROPIONATE 50 MCG/SPRAY 16 GM NASAL SPRAY NASAL SCH (08:28)
[2021-03-14] MEDS: BusPIRone HCL 15 MG TABLET PO SCH ×2 (08:28→20:43)
[2021-03-14] MEDS: TAMSULOSIN HCL 0.4 MG CAPSULE PO SCH (08:28)
[2021-03-14] MEDS: MULTIVITAMINS, THERAPEUTIC TABLET PO SCH (08:28)
[2021-03-14] MEDS: AmLODIPine BESYLATE 5 MG TABLET PO SCH (08:28)
[2021-03-14] MEDS: NICOTINE 21 MG/24 HOUR PATCH TD SCH (08:33)
[2021-03-14] MEDS: DOCUSATE SODIUM 100 MG CAPSULE PO PRN (15:07)
[2021-03-14 16:39] VITALS: BP 113/68
[2021-03-14 20:13] VITALS: BP 120/78
[2021-03-14] MEDS: QUEtiapine FUMARATE 200 MG TABLET PO SCH (20:43)
[2021-03-14] MEDS: MELATONIN 5 MG TABLET PO PRN (23:35)
[2021-03-15 04:25] VITALS: BP 129/89
[2021-03-15] MEDS: LEVOTHYROXINE SODIUM 75 MCG TABLET PO SCH (05:32)
[2021-03-15] MEDS: CYCLOBENZAPRINE HCL 10 MG TABLET PO PRN ×3 (05:34→22:07)
[2021-03-15] MEDS: ACETAMINOPHEN 325 MG TABLET PO PRN ×4 (05:35→20:08)
[2021-03-15 07:38] VITALS: BP 129/85
[2021-03-15] MEDS: FOLIC ACID 1 MG TABLET PO SCH (08:21)
[2021-03-15] MEDS: QUEtiapine FUMARATE 100 MG TABLET PO SCH (08:21)
[2021-03-15] MEDS: TAMSULOSIN HCL 0.4 MG CAPSULE PO SCH (08:21)
[2021-03-15] MEDS: GABAPENTIN 100 MG CAPSULE PO SCH ×3 (08:21→20:07)
[2021-03-15] MEDS: HEPARIN SODIUM,PORCINE 5,000 UNITS/ML VIAL SQ SCH ×3 (08:21→23:22)
[2021-03-15] MEDS: AmLODIPine BESYLATE 5 MG TABLET PO SCH (08:21)
[2021-03-15] MEDS: SENNA/DOCUSATE SODIUM 8.6-50 MG TABLET PO SCH ×2 (08:21→20:07)
[2021-03-15] MEDS: NICOTINE 21 MG/24 HOUR PATCH TD SCH (08:22)
[2021-03-15] MEDS: PANTOPRAZOLE SODIUM 40 MG DR TABLET PO SCH (08:22)
[2021-03-15] MEDS: THIAMINE 100 MG TABLET PO SCH (08:22)
[2021-03-15] MEDS: MULTIVITAMINS, THERAPEUTIC TABLET PO SCH (08:22)
[2021-03-15] MEDS: FLUTICASONE PROPIONATE 50 MCG/SPRAY 16 GM NASAL SPRAY NASAL SCH (08:24)
[2021-03-15] MEDS: BusPIRone HCL 15 MG TABLET PO SCH ×2 (08:24→20:07)
[2021-03-15] MEDS: DOCUSATE SODIUM 100 MG CAPSULE PO PRN ×2 (08:24→16:37)
[2021-03-15 16:21] VITALS: BP 125/79
[2021-03-15] MEDS: QUEtiapine FUMARATE 200 MG TABLET PO SCH (20:07)
[2021-03-15 20:26] VITALS: BP 123/74
[2021-03-15] MEDS: MELATONIN 5 MG TABLET PO PRN (23:19)
[2021-03-16] MEDS: ACETAMINOPHEN 325 MG TABLET PO PRN ×4 (03:03→20:02)
[2021-03-16 04:56] VITALS: BP 128/82
[2021-03-16] MEDS: LEVOTHYROXINE SODIUM 75 MCG TABLET PO SCH (05:32)
[2021-03-16] MEDS: CYCLOBENZAPRINE HCL 10 MG TABLET PO PRN ×3 (05:34→20:02)
[2021-03-16 08:02] VITALS: BP 124/86
[2021-03-16] MEDS: SENNA/DOCUSATE SODIUM 8.6-50 MG TABLET PO SCH ×2 (08:39→20:01)
[2021-03-16] MEDS: MULTIVITAMINS, THERAPEUTIC TABLET PO SCH (08:40)
[2021-03-16] MEDS: TAMSULOSIN HCL 0.4 MG CAPSULE PO SCH (08:40)
[2021-03-16] MEDS: FOLIC ACID 1 MG TABLET PO SCH (08:40)
[2021-03-16] MEDS: PANTOPRAZOLE SODIUM 40 MG DR TABLET PO SCH (08:40)
[2021-03-16] MEDS: AmLODIPine BESYLATE 5 MG TABLET PO SCH (08:40)
[2021-03-16] MEDS: GABAPENTIN 100 MG CAPSULE PO SCH ×3 (08:40→20:01)
[2021-03-16] MEDS: BusPIRone HCL 15 MG TABLET PO SCH ×2 (08:40→20:01)
[2021-03-16] MEDS: NICOTINE 21 MG/24 HOUR PATCH TD SCH (08:40)
[2021-03-16] MEDS: QUEtiapine FUMARATE 100 MG TABLET PO SCH (08:40)
[2021-03-16] MEDS: THIAMINE 100 MG TABLET PO SCH (08:40)
[2021-03-16] MEDS: HEPARIN SODIUM,PORCINE 5,000 UNITS/ML VIAL SQ SCH ×2 (08:42→15:27)
[2021-03-16] MEDS: FLUTICASONE PROPIONATE 50 MCG/SPRAY 16 GM NASAL SPRAY NASAL SCH (08:42)
[2021-03-16 15:21] VITALS: BP 122/82
[2021-03-16 19:40] VITALS: BP 108/70
[2021-03-16] MEDS: QUEtiapine FUMARATE 200 MG TABLET PO SCH (20:00)
[2021-03-16] MEDS: MELATONIN 5 MG TABLET PO PRN (20:27)
[2021-03-17] MEDS: ACETAMINOPHEN 325 MG TABLET PO PRN ×3 (04:45→15:19)
[2021-03-17] MEDS: CYCLOBENZAPRINE HCL 10 MG TABLET PO PRN ×3 (04:46→21:19)
[2021-03-17] MEDS: LEVOTHYROXINE SODIUM 75 MCG TABLET PO SCH (05:54)
[2021-03-17 08:15] VITALS: BP 120/79
[2021-03-17] MEDS: HEPARIN SODIUM,PORCINE 5,000 UNITS/ML VIAL SQ SCH ×3 (08:51→15:20)
[2021-03-17] MEDS: TAMSULOSIN HCL 0.4 MG CAPSULE PO SCH (08:52)
[2021-03-17] MEDS: BusPIRone HCL 15 MG TABLET PO SCH ×2 (08:52→20:01)
[2021-03-17] MEDS: QUEtiapine FUMARATE 100 MG TABLET PO SCH (08:52)
[2021-03-17] MEDS: GABAPENTIN 100 MG CAPSULE PO SCH ×3 (08:52→20:01)
[2021-03-17] MEDS: SENNA/DOCUSATE SODIUM 8.6-50 MG TABLET PO SCH ×2 (08:52→20:01)
[2021-03-17] MEDS: PANTOPRAZOLE SODIUM 40 MG DR TABLET PO SCH (08:53)
[2021-03-17] MEDS: THIAMINE 100 MG TABLET PO SCH (08:53)
[2021-03-17] MEDS: MULTIVITAMINS, THERAPEUTIC TABLET PO SCH (08:53)
[2021-03-17] MEDS: FOLIC ACID 1 MG TABLET PO SCH (08:53)
[2021-03-17] MEDS: AmLODIPine BESYLATE 5 MG TABLET PO SCH (08:53)
[2021-03-17] MEDS: NICOTINE 21 MG/24 HOUR PATCH TD SCH (08:56)
[2021-03-17] MEDS: FLUTICASONE PROPIONATE 50 MCG/SPRAY 16 GM NASAL SPRAY NASAL SCH (09:04)
[2021-03-17] MEDS: BISACODYL 10 MG RECTAL RECTAL SUPPOSITORY PR PRN (15:43)
[2021-03-17 16:40] VITALS: BP 112/77
[2021-03-17] MEDS: QUEtiapine FUMARATE 200 MG TABLET PO SCH (20:00)
[2021-03-17] MEDS: MELATONIN 5 MG TABLET PO PRN (20:02)
[2021-03-17 20:47] VITALS: BP 143/90
[2021-03-18] MEDS: HEPARIN SODIUM,PORCINE 5,000 UNITS/ML VIAL SQ SCH ×7 (00:17→23:46)
[2021-03-18] MEDS: ACETAMINOPHEN 325 MG TABLET PO PRN ×4 (00:17→19:40)
[2021-03-18 04:58] VITALS: BP 144/86
[2021-03-18] MEDS: LEVOTHYROXINE SODIUM 75 MCG TABLET PO SCH (06:00)
[2021-03-18] MEDS: CYCLOBENZAPRINE HCL 10 MG TABLET PO PRN ×3 (06:01→23:43)
[2021-03-18] MEDS: FOLIC ACID 1 MG TABLET PO SCH (08:09)
[2021-03-18] MEDS: THIAMINE 100 MG TABLET PO SCH (08:09)
[2021-03-18] MEDS: BusPIRone HCL 15 MG TABLET PO SCH ×2 (08:09→19:40)
[2021-03-18] MEDS: AmLODIPine BESYLATE 5 MG TABLET PO SCH (08:09)
[2021-03-18] MEDS: TAMSULOSIN HCL 0.4 MG CAPSULE PO SCH (08:09)
[2021-03-18] MEDS: MULTIVITAMINS, THERAPEUTIC TABLET PO SCH (08:09)
[2021-03-18] MEDS: GABAPENTIN 100 MG CAPSULE PO SCH ×3 (08:09→19:40)
[2021-03-18] MEDS: SENNA/DOCUSATE SODIUM 8.6-50 MG TABLET PO SCH ×2 (08:09→19:40)
[2021-03-18] MEDS: QUEtiapine FUMARATE 100 MG TABLET PO SCH (08:10)
[2021-03-18] MEDS: FLUTICASONE PROPIONATE 50 MCG/SPRAY 16 GM NASAL SPRAY NASAL SCH (08:10)
[2021-03-18] MEDS: PANTOPRAZOLE SODIUM 40 MG DR TABLET PO SCH (08:10)
[2021-03-18] MEDS: NICOTINE 21 MG/24 HOUR PATCH TD SCH (08:11)
[2021-03-18 08:17] VITALS: BP 111/72
[2021-03-18 15:26] VITALS: BP 119/75
[2021-03-18] MEDS: MELATONIN 5 MG TABLET PO PRN (19:40)
[2021-03-18] MEDS: QUEtiapine FUMARATE 200 MG TABLET PO SCH (19:40)
[2021-03-18 20:07] VITALS: BP 125/83
[2021-03-19] MEDS: ACETAMINOPHEN 325 MG TABLET PO PRN ×4 (06:17→23:52)
[2021-03-19] MEDS: LEVOTHYROXINE SODIUM 75 MCG TABLET PO SCH (06:17)
[2021-03-19] MEDS: HEPARIN SODIUM,PORCINE 5,000 UNITS/ML VIAL SQ SCH ×3 (08:00→23:51)
[2021-03-19] MEDS: NICOTINE 21 MG/24 HOUR PATCH TD SCH (09:00)
[2021-03-19 09:02] VITALS: BP 141/85
[2021-03-19] MEDS: DOCUSATE SODIUM 100 MG CAPSULE PO PRN ×2 (09:22→20:31)
[2021-03-19] MEDS: MULTIVITAMINS, THERAPEUTIC TABLET PO SCH (09:22)
[2021-03-19] MEDS: TAMSULOSIN HCL 0.4 MG CAPSULE PO SCH (09:22)
[2021-03-19] MEDS: GABAPENTIN 100 MG CAPSULE PO SCH ×3 (09:22→20:30)
[2021-03-19] MEDS: CYCLOBENZAPRINE HCL 10 MG TABLET PO PRN ×2 (09:22→20:31)
[2021-03-19] MEDS: AmLODIPine BESYLATE 5 MG TABLET PO SCH (09:22)
[2021-03-19] MEDS: THIAMINE 100 MG TABLET PO SCH (09:22)
[2021-03-19] MEDS: PANTOPRAZOLE SODIUM 40 MG DR TABLET PO SCH (09:22)
[2021-03-19] MEDS: FOLIC ACID 1 MG TABLET PO SCH (09:22)
[2021-03-19] MEDS: FLUTICASONE PROPIONATE 50 MCG/SPRAY 16 GM NASAL SPRAY NASAL SCH (09:23)
[2021-03-19] MEDS: QUEtiapine FUMARATE 100 MG TABLET PO SCH (09:23)
[2021-03-19] MEDS: BusPIRone HCL 15 MG TABLET PO SCH ×2 (09:23→20:30)
[2021-03-19] MEDS: SENNA/DOCUSATE SODIUM 8.6-50 MG TABLET PO SCH ×2 (09:24→20:30)
[2021-03-19 16:18] VITALS: BP 119/92
[2021-03-19 20:28] VITALS: BP 147/80
[2021-03-19] MEDS: QUEtiapine FUMARATE 200 MG TABLET PO SCH (20:30)
[2021-03-19] MEDS: MELATONIN 5 MG TABLET PO PRN (20:31)
[2021-03-20] MEDS: LEVOTHYROXINE SODIUM 75 MCG TABLET PO SCH (05:00)
[2021-03-20] MEDS: CYCLOBENZAPRINE HCL 10 MG TABLET PO PRN ×2 (05:00→20:51)
[2021-03-20] MEDS: ACETAMINOPHEN 325 MG TABLET PO PRN ×4 (05:04→20:50)
[2021-03-20 05:05] VITALS: BP 116/84
[2021-03-20 07:37] VITALS: BP 139/72
[2021-03-20] MEDS: MULTIVITAMINS, THERAPEUTIC TABLET PO SCH (08:40)
[2021-03-20] MEDS: PANTOPRAZOLE SODIUM 40 MG DR TABLET PO SCH (08:40)
[2021-03-20] MEDS: AmLODIPine BESYLATE 5 MG TABLET PO SCH (08:40)
[2021-03-20] MEDS: BusPIRone HCL 15 MG TABLET PO SCH ×2 (08:41→20:50)
[2021-03-20] MEDS: FOLIC ACID 1 MG TABLET PO SCH (08:41)
[2021-03-20] MEDS: GABAPENTIN 100 MG CAPSULE PO SCH ×3 (08:41→20:50)
[2021-03-20] MEDS: FLUTICASONE PROPIONATE 50 MCG/SPRAY 16 GM NASAL SPRAY NASAL SCH (08:41)
[2021-03-20] MEDS: SENNA/DOCUSATE SODIUM 8.6-50 MG TABLET PO SCH ×2 (08:41→20:50)
[2021-03-20] MEDS: HEPARIN SODIUM,PORCINE 5,000 UNITS/ML VIAL SQ SCH ×3 (08:41→23:36)
[2021-03-20] MEDS: DOCUSATE SODIUM 100 MG CAPSULE PO PRN ×2 (08:41→20:50)
[2021-03-20] MEDS: TAMSULOSIN HCL 0.4 MG CAPSULE PO SCH (08:43)
[2021-03-20] MEDS: QUEtiapine FUMARATE 100 MG TABLET PO SCH (08:45)
[2021-03-20] MEDS: THIAMINE 100 MG TABLET PO SCH (08:45)
[2021-03-20] MEDS: NICOTINE 21 MG/24 HOUR PATCH TD SCH (08:45)
[2021-03-20 15:27] VITALS: BP 107/73
[2021-03-20 19:40] VITALS: BP 143/78
[2021-03-20] MEDS: QUEtiapine FUMARATE 200 MG TABLET PO SCH (20:51)
[2021-03-20] MEDS: MELATONIN 5 MG TABLET PO PRN (20:51)
[2021-03-21] MEDS: ACETAMINOPHEN 325 MG TABLET PO PRN ×3 (05:25→20:16)
[2021-03-21] MEDS: LEVOTHYROXINE SODIUM 75 MCG TABLET PO SCH (05:25)
[2021-03-21] MEDS: CYCLOBENZAPRINE HCL 10 MG TABLET PO PRN ×3 (05:28→22:05)
[2021-03-21] MEDS: FLUTICASONE PROPIONATE 50 MCG/SPRAY 16 GM NASAL SPRAY NASAL SCH (08:23)
[2021-03-21] MEDS: GABAPENTIN 100 MG CAPSULE PO SCH ×3 (08:24→20:16)
[2021-03-21] MEDS: BusPIRone HCL 15 MG TABLET PO SCH ×2 (08:24→20:16)
[2021-03-21] MEDS: HEPARIN SODIUM,PORCINE 5,000 UNITS/ML VIAL SQ SCH ×2 (08:24→16:47)
[2021-03-21] MEDS: SENNA/DOCUSATE SODIUM 8.6-50 MG TABLET PO SCH ×2 (08:24→20:16)
[2021-03-21] MEDS: NICOTINE 21 MG/24 HOUR PATCH TD SCH (08:24)
[2021-03-21] MEDS: PANTOPRAZOLE SODIUM 40 MG DR TABLET PO SCH (08:24)
[2021-03-21] MEDS: AmLODIPine BESYLATE 5 MG TABLET PO SCH (08:25)
[2021-03-21] MEDS: MULTIVITAMINS, THERAPEUTIC TABLET PO SCH (08:25)
[2021-03-21] MEDS: THIAMINE 100 MG TABLET PO SCH (08:25)
[2021-03-21] MEDS: TAMSULOSIN HCL 0.4 MG CAPSULE PO SCH (08:25)
[2021-03-21] MEDS: FOLIC ACID 1 MG TABLET PO SCH (08:25)
[2021-03-21] MEDS: QUEtiapine FUMARATE 100 MG TABLET PO SCH (08:27)
[2021-03-21 11:15] VITALS: BP 130/76
[2021-03-21 16:37] VITALS: BP 113/72
[2021-03-21] MEDS: DOCUSATE SODIUM 100 MG CAPSULE PO PRN (20:16)
[2021-03-21] MEDS: QUEtiapine FUMARATE 200 MG TABLET PO SCH (20:16)
[2021-03-21] MEDS: MELATONIN 5 MG TABLET PO PRN (20:17)
[2021-03-21 20:22] VITALS: BP 144/71
[2021-03-22] MEDS: ACETAMINOPHEN 325 MG TABLET PO PRN ×4 (04:04→20:04)
[2021-03-22] MEDS: CYCLOBENZAPRINE HCL 10 MG TABLET PO PRN ×3 (05:25→20:03)
[2021-03-22] MEDS: LEVOTHYROXINE SODIUM 75 MCG TABLET PO SCH (05:25)
[2021-03-22] MEDS: HEPARIN SODIUM,PORCINE 5,000 UNITS/ML VIAL SQ SCH ×4 (08:00→17:00)
[2021-03-22 08:02] VITALS: BP 139/87
[2021-03-22] MEDS: FOLIC ACID 1 MG TABLET PO SCH (08:19)
[2021-03-22] MEDS: PANTOPRAZOLE SODIUM 40 MG DR TABLET PO SCH (08:19)
[2021-03-22] MEDS: TAMSULOSIN HCL 0.4 MG CAPSULE PO SCH (08:19)
[2021-03-22] MEDS: GABAPENTIN 100 MG CAPSULE PO SCH ×3 (08:19→20:03)
[2021-03-22] MEDS: QUEtiapine FUMARATE 100 MG TABLET PO SCH (08:19)
[2021-03-22] MEDS: AmLODIPine BESYLATE 5 MG TABLET PO SCH (08:19)
[2021-03-22] MEDS: BusPIRone HCL 15 MG TABLET PO SCH ×2 (08:19→20:02)
[2021-03-22] MEDS: SENNA/DOCUSATE SODIUM 8.6-50 MG TABLET PO SCH ×2 (08:19→20:01)
[2021-03-22] MEDS: MULTIVITAMINS, THERAPEUTIC TABLET PO SCH (08:19)
[2021-03-22] MEDS: NICOTINE 21 MG/24 HOUR PATCH TD SCH (08:20)
[2021-03-22] MEDS: FLUTICASONE PROPIONATE 50 MCG/SPRAY 16 GM NASAL SPRAY NASAL SCH (08:21)
[2021-03-22] MEDS: THIAMINE 100 MG TABLET PO SCH (09:16)
[2021-03-22 15:16] VITALS: BP 161/92
[2021-03-22] MEDS: MELATONIN 5 MG TABLET PO PRN (20:04)
[2021-03-22 20:11] VITALS: BP 133/72
[2021-03-22] MEDS: QUEtiapine FUMARATE 200 MG TABLET PO SCH (20:12)
[2021-03-23] MEDS: CYCLOBENZAPRINE HCL 10 MG TABLET PO PRN ×3 (05:35→20:07)
[2021-03-23] MEDS: LEVOTHYROXINE SODIUM 75 MCG TABLET PO SCH (05:35)
[2021-03-23] MEDS: ACETAMINOPHEN 325 MG TABLET PO PRN ×5 (05:37→23:15)
[2021-03-23] MEDS: HEPARIN SODIUM,PORCINE 5,000 UNITS/ML VIAL SQ SCH ×4 (08:00→23:18)
[2021-03-23] MEDS: AmLODIPine BESYLATE 5 MG TABLET PO SCH (08:31)
[2021-03-23] MEDS: THIAMINE 100 MG TABLET PO SCH (08:31)
[2021-03-23] MEDS: SENNA/DOCUSATE SODIUM 8.6-50 MG TABLET PO SCH ×2 (08:31→20:07)
[2021-03-23] MEDS: FOLIC ACID 1 MG TABLET PO SCH (08:31)
[2021-03-23] MEDS: PANTOPRAZOLE SODIUM 40 MG DR TABLET PO SCH (08:31)
[2021-03-23] MEDS: GABAPENTIN 100 MG CAPSULE PO SCH ×3 (08:31→20:07)
[2021-03-23] MEDS: TAMSULOSIN HCL 0.4 MG CAPSULE PO SCH (08:31)
[2021-03-23] MEDS: BusPIRone HCL 15 MG TABLET PO SCH ×2 (08:31→20:07)
[2021-03-23] MEDS: MULTIVITAMINS, THERAPEUTIC TABLET PO SCH (08:32)
[2021-03-23] MEDS: QUEtiapine FUMARATE 100 MG TABLET PO SCH (08:32)
[2021-03-23] MEDS: NICOTINE 21 MG/24 HOUR PATCH TD SCH (08:32)
[2021-03-23] MEDS: FLUTICASONE PROPIONATE 50 MCG/SPRAY 16 GM NASAL SPRAY NASAL SCH (08:40)
[2021-03-23 09:06] VITALS: BP 135/87
[2021-03-23 15:32] VITALS: BP 112/72
[2021-03-23] MEDS: QUEtiapine FUMARATE 200 MG TABLET PO SCH (20:08)
[2021-03-23] MEDS: MELATONIN 5 MG TABLET PO PRN (20:09)
[2021-03-23 20:21] VITALS: BP 131/83
[2021-03-24 05:18] VITALS: BP 123/80
[2021-03-24] MEDS: ACETAMINOPHEN 325 MG TABLET PO PRN ×2 (06:11→17:02)
[2021-03-24] MEDS: LEVOTHYROXINE SODIUM 75 MCG TABLET PO SCH (06:11)
[2021-03-24] MEDS: CYCLOBENZAPRINE HCL 10 MG TABLET PO PRN ×2 (06:12→17:02)
[2021-03-24] MEDS: DOCUSATE SODIUM 100 MG CAPSULE PO PRN (08:23)
[2021-03-24] MEDS: HEPARIN SODIUM,PORCINE 5,000 UNITS/ML VIAL SQ SCH ×2 (08:23→16:17)
[2021-03-24] MEDS: GABAPENTIN 100 MG CAPSULE PO SCH ×3 (08:23→20:11)
[2021-03-24] MEDS: MULTIVITAMINS, THERAPEUTIC TABLET PO SCH (08:23)
[2021-03-24] MEDS: SENNA/DOCUSATE SODIUM 8.6-50 MG TABLET PO SCH ×2 (08:23→20:11)
[2021-03-24] MEDS: NICOTINE 21 MG/24 HOUR PATCH TD SCH (08:23)
[2021-03-24] MEDS: AmLODIPine BESYLATE 5 MG TABLET PO SCH (08:24)
[2021-03-24] MEDS: FOLIC ACID 1 MG TABLET PO SCH (08:24)
[2021-03-24] MEDS: QUEtiapine FUMARATE 100 MG TABLET PO SCH (08:24)
[2021-03-24] MEDS: BusPIRone HCL 15 MG TABLET PO SCH ×2 (08:24→20:11)
[2021-03-24] MEDS: FLUTICASONE PROPIONATE 50 MCG/SPRAY 16 GM NASAL SPRAY NASAL SCH (08:24)
[2021-03-24] MEDS: THIAMINE 100 MG TABLET PO SCH (08:24)
[2021-03-24] MEDS: PANTOPRAZOLE SODIUM 40 MG DR TABLET PO SCH (08:24)
[2021-03-24] MEDS: TAMSULOSIN HCL 0.4 MG CAPSULE PO SCH (08:24)
[2021-03-24 10:59] VITALS: BP 103/69
[2021-03-24 19:30] VITALS: BP 133/75
[2021-03-24] MEDS: MELATONIN 5 MG TABLET PO PRN (20:11)
[2021-03-24] MEDS: QUEtiapine FUMARATE 200 MG TABLET PO SCH (20:13)
[2021-03-25] MEDS: CYCLOBENZAPRINE HCL 10 MG TABLET PO PRN (03:22)
[2021-03-25] MEDS: ACETAMINOPHEN 325 MG TABLET PO PRN ×2 (03:22→16:28)
[2021-03-25] MEDS: LEVOTHYROXINE SODIUM 75 MCG TABLET PO SCH (05:33)
[2021-03-25 08:14] VITALS: BP 136/81
[2021-03-25] MEDS: TAMSULOSIN HCL 0.4 MG CAPSULE PO SCH (08:16)
[2021-03-25] MEDS: MULTIVITAMINS, THERAPEUTIC TABLET PO SCH (08:16)
[2021-03-25] MEDS: HEPARIN SODIUM,PORCINE 5,000 UNITS/ML VIAL SQ SCH ×3 (08:16→16:28)
[2021-03-25] MEDS: AmLODIPine BESYLATE 5 MG TABLET PO SCH (08:17)
[2021-03-25] MEDS: SENNA/DOCUSATE SODIUM 8.6-50 MG TABLET PO SCH ×2 (08:17→20:11)
[2021-03-25] MEDS: FOLIC ACID 1 MG TABLET PO SCH (08:17)
[2021-03-25] MEDS: DOCUSATE SODIUM 100 MG CAPSULE PO PRN (08:17)
[2021-03-25] MEDS: THIAMINE 100 MG TABLET PO SCH (08:17)
[2021-03-25] MEDS: GABAPENTIN 100 MG CAPSULE PO SCH ×3 (08:17→20:11)
[2021-03-25] MEDS: QUEtiapine FUMARATE 100 MG TABLET PO SCH (08:17)
[2021-03-25] MEDS: PANTOPRAZOLE SODIUM 40 MG DR TABLET PO SCH (08:17)
[2021-03-25] MEDS: BusPIRone HCL 15 MG TABLET PO SCH ×2 (08:18→20:11)
[2021-03-25] MEDS: FLUTICASONE PROPIONATE 50 MCG/SPRAY 16 GM NASAL SPRAY NASAL SCH (08:18)
[2021-03-25 16:21] VITALS: BP 132/75
[2021-03-25] MEDS ORDERED: ACETAMINOPHEN 325 MG TABLET ONE (16:25)
[2021-03-25] MEDS: NICOTINE 21 MG/24 HOUR PATCH TD SCH (16:27)
[2021-03-25] MEDS: QUEtiapine FUMARATE 200 MG TABLET PO SCH (20:11)
[2021-03-25] MEDS: MELATONIN 5 MG TABLET PO PRN (20:12)
[2021-03-25 20:38] VITALS: BP_SYST 112; BP_SYST 121; BP_DIAS 71; BP_DIAS 77
[2021-03-26] MEDS ORDERED: BISACODYL 10 MG RECTAL RECTAL SUPPOSITORY PR PRN (01:45)
[2021-03-26] MEDS ORDERED: ALBUTEROL SULFATE 2.5 MG/0.5 ML NEB SOLUTION NEB PRN (01:45)
[2021-03-26] MEDS ORDERED: 0.9% SODIUM CHLORIDE 10 ML SYRINGE IVP PRN (02:00)
[2021-03-26] MEDS ORDERED: IPRATROPIUM BROMIDE 0.5 MG/2.5 ML NEB SOLUTION NEB PRN (02:00)
[2021-03-26] MEDS: CYCLOBENZAPRINE HCL 10 MG TABLET PO PRN ×2 (04:04→15:40)
[2021-03-26] MEDS: ACETAMINOPHEN 325 MG TABLET PO PRN ×3 (04:04→19:53)
[2021-03-26] MEDS ORDERED: LEVOTHYROXINE SODIUM 75 MCG TABLET PO SCH (06:30)
[2021-03-26 08:00] VITALS: BP 121/74
[2021-03-26] MEDS ORDERED: THIAMINE 100 MG TABLET PO SCH (09:00)
[2021-03-26] MEDS ORDERED: MULTIVITAMINS, THERAPEUTIC TABLET PO SCH (09:00)
[2021-03-26] MEDS ORDERED: AmLODIPine BESYLATE 5 MG TABLET PO SCH (09:00)
[2021-03-26] MEDS ORDERED: TAMSULOSIN HCL 0.4 MG CAPSULE PO SCH (09:00)
[2021-03-26] MEDS ORDERED: FOLIC ACID 1 MG TABLET PO SCH (09:00)
[2021-03-26] MEDS: BusPIRone HCL 15 MG TABLET PO SCH ×2 (09:53→19:53)
[2021-03-26] MEDS: QUEtiapine FUMARATE 100 MG TABLET PO SCH (09:53)
[2021-03-26] MEDS: GABAPENTIN 100 MG CAPSULE PO SCH ×3 (09:53→19:52)
[2021-03-26] MEDS: SENNA/DOCUSATE SODIUM 8.6-50 MG TABLET PO SCH ×2 (09:54→19:52)
[2021-03-26] MEDS: NICOTINE 21 MG/24 HOUR PATCH TD SCH (09:54)
[2021-03-26] MEDS: FLUTICASONE PROPIONATE 50 MCG/SPRAY 16 GM NASAL SPRAY NASAL SCH (10:07)
[2021-03-26] MEDS ORDERED: PANTOPRAZOLE SODIUM 40 MG DR TABLET PO ONE (10:25)
[2021-03-26] MEDS ORDERED: THIAMINE 100 MG TABLET ONE (10:26)
[2021-03-26] MEDS ORDERED: TAMSULOSIN HCL 0.4 MG CAPSULE ONE (10:26)
[2021-03-26] MEDS ORDERED: MULTIVITAMINS WITH MINERALS, THERAPEUTIC TABLET ONE (10:26)
[2021-03-26] MEDS ORDERED: AmLODIPine BESYLATE 5 MG TABLET ONE (10:26)
[2021-03-26] MEDS ORDERED: LEVOTHYROXINE SODIUM 75 MCG TABLET ONE (10:26)
[2021-03-26] MEDS ORDERED: ACETAMINOPHEN 325 MG TABLET ONE (10:27)
[2021-03-26] MEDS ORDERED: HEPARIN SODIUM,PORCINE 5,000 UNITS/ML VIAL ONE (10:27)
[2021-03-26] MEDS ORDERED: FOLIC ACID 1 MG TABLET ONE (10:27)
[2021-03-26] MEDS: PANTOPRAZOLE SODIUM 40 MG DR TABLET PO SCH (10:28)
[2021-03-26] MEDS: HEPARIN SODIUM,PORCINE 5,000 UNITS/ML VIAL SQ SCH ×3 (10:28→15:39)
[2021-03-26] MEDS: THIAMINE 100 MG TABLET PO SCH (10:31)
[2021-03-26] MEDS: MULTIVITAMINS, THERAPEUTIC TABLET PO SCH (10:31)
[2021-03-26] MEDS: AmLODIPine BESYLATE 5 MG TABLET PO SCH (10:32)
[2021-03-26] MEDS: LEVOTHYROXINE SODIUM 75 MCG TABLET PO SCH (10:33)
[2021-03-26] MEDS ORDERED: DOCUSATE SODIUM 100 MG CAPSULE ONE (10:38)
[2021-03-26] MEDS ORDERED: CYCLOBENZAPRINE HCL 10 MG TABLET ONE (10:38)
[2021-03-26] MEDS: DOCUSATE SODIUM 100 MG CAPSULE PO PRN (10:40)
[2021-03-26] MEDS: TAMSULOSIN HCL 0.4 MG CAPSULE PO SCH (10:43)
[2021-03-26] MEDS: FOLIC ACID 1 MG TABLET PO SCH (10:46)
[2021-03-26 16:18] VITALS: BP 123/73
[2021-03-26] MEDS: MELATONIN 5 MG TABLET PO PRN (19:52)
[2021-03-26] MEDS: QUEtiapine FUMARATE 300 MG TABLET PO SCH (19:52)
[2021-03-26 20:04] VITALS: BP 140/79
[2021-03-27] MEDS: HEPARIN SODIUM,PORCINE 5,000 UNITS/ML VIAL SQ SCH ×5 (00:13→23:16)
[2021-03-27] MEDS: CYCLOBENZAPRINE HCL 10 MG TABLET PO PRN ×3 (00:13→21:42)
[2021-03-27] MEDS: ACETAMINOPHEN 325 MG TABLET PO PRN ×3 (06:26→21:42)
[2021-03-27] MEDS: LEVOTHYROXINE SODIUM 75 MCG TABLET PO SCH (06:26)
[2021-03-27 07:58] VITALS: BP 130/82
[2021-03-27] MEDS: AmLODIPine BESYLATE 5 MG TABLET PO SCH (08:43)
[2021-03-27] MEDS: SENNA/DOCUSATE SODIUM 8.6-50 MG TABLET PO SCH ×2 (08:43→19:48)
[2021-03-27] MEDS: GABAPENTIN 100 MG CAPSULE PO SCH ×3 (08:43→19:48)
[2021-03-27] MEDS: BusPIRone HCL 15 MG TABLET PO SCH ×2 (08:43→19:48)
[2021-03-27] MEDS: PANTOPRAZOLE SODIUM 40 MG DR TABLET PO SCH (08:43)
[2021-03-27] MEDS: FOLIC ACID 1 MG TABLET PO SCH (08:44)
[2021-03-27] MEDS: MULTIVITAMINS, THERAPEUTIC TABLET PO SCH (08:44)
[2021-03-27] MEDS: TAMSULOSIN HCL 0.4 MG CAPSULE PO SCH (08:44)
[2021-03-27] MEDS: NICOTINE 21 MG/24 HOUR PATCH TD SCH (08:44)
[2021-03-27] MEDS: FLUTICASONE PROPIONATE 50 MCG/SPRAY 16 GM NASAL SPRAY NASAL SCH (08:45)
[2021-03-27] MEDS: QUEtiapine FUMARATE 100 MG TABLET PO SCH (08:48)
[2021-03-27] MEDS: THIAMINE 100 MG TABLET PO SCH (08:48)
[2021-03-27 15:50] VITALS: BP 142/95
[2021-03-27] MEDS: QUEtiapine FUMARATE 300 MG TABLET PO SCH (19:48)
[2021-03-27 20:27] VITALS: BP 139/92
[2021-03-27] MEDS: MELATONIN 5 MG TABLET PO PRN (21:41)
[2021-03-28 06:16] VITALS: BP 125/89
[2021-03-28] MEDS: LEVOTHYROXINE SODIUM 75 MCG TABLET PO SCH (06:21)
[2021-03-28 07:42] VITALS: BP 93/61
[2021-03-28] MEDS: TAMSULOSIN HCL 0.4 MG CAPSULE PO SCH (08:38)
[2021-03-28] MEDS: GABAPENTIN 100 MG CAPSULE PO SCH ×3 (08:38→20:03)
[2021-03-28] MEDS: BusPIRone HCL 15 MG TABLET PO SCH ×2 (08:38→20:04)
[2021-03-28] MEDS: SENNA/DOCUSATE SODIUM 8.6-50 MG TABLET PO SCH ×2 (08:38→20:04)
[2021-03-28] MEDS: MULTIVITAMINS, THERAPEUTIC TABLET PO SCH (08:38)
[2021-03-28] MEDS: THIAMINE 100 MG TABLET PO SCH (08:38)
[2021-03-28] MEDS: NICOTINE 21 MG/24 HOUR PATCH TD SCH (08:38)
[2021-03-28] MEDS: PANTOPRAZOLE SODIUM 40 MG DR TABLET PO SCH (08:38)
[2021-03-28] MEDS: FOLIC ACID 1 MG TABLET PO SCH (08:39)
[2021-03-28] MEDS: QUEtiapine FUMARATE 100 MG TABLET PO SCH (08:39)
[2021-03-28] MEDS: CYCLOBENZAPRINE HCL 10 MG TABLET PO PRN ×2 (08:40→17:42)
[2021-03-28] MEDS: AmLODIPine BESYLATE 5 MG TABLET PO SCH (08:41)
[2021-03-28] MEDS: HEPARIN SODIUM,PORCINE 5,000 UNITS/ML VIAL SQ SCH ×4 (08:42→23:10)
[2021-03-28] MEDS: FLUTICASONE PROPIONATE 50 MCG/SPRAY 16 GM NASAL SPRAY NASAL SCH (08:42)
[2021-03-28] MEDS: ACETAMINOPHEN 325 MG TABLET PO PRN ×3 (08:53→22:16)
[2021-03-28 15:38] VITALS: BP 123/72
[2021-03-28 18:29] LABS: COVID AG,FIA SOURCE NASOPHARYNGEAL
[2021-03-28] MEDS: MELATONIN 5 MG TABLET PO PRN (20:04)
[2021-03-28] MEDS: QUEtiapine FUMARATE 300 MG TABLET PO SCH (20:04)
[2021-03-28] MEDS: BENZOCAINE/MENTHOL LOZENGE PO PRN ×2 (20:30→22:22)
[2021-03-28 21:05] VITALS: BP 130/62
[2021-03-29 04:50] VITALS: BP 114/79
[2021-03-29] MEDS: ACETAMINOPHEN 325 MG TABLET PO PRN ×4 (05:26→20:31)
[2021-03-29] MEDS: BENZOCAINE/MENTHOL LOZENGE PO PRN ×4 (05:26→16:34)
[2021-03-29] MEDS: LEVOTHYROXINE SODIUM 75 MCG TABLET PO SCH (05:26)
[2021-03-29] MEDS: CYCLOBENZAPRINE HCL 10 MG TABLET PO PRN ×2 (05:26→13:55)
[2021-03-29] MEDS: HEPARIN SODIUM,PORCINE 5,000 UNITS/ML VIAL SQ SCH ×2 (08:00→16:34)
[2021-03-29 08:25] VITALS: BP 90/61
[2021-03-29] MEDS: FLUTICASONE PROPIONATE 50 MCG/SPRAY 16 GM NASAL SPRAY NASAL SCH (09:00)
[2021-03-29] MEDS: GABAPENTIN 100 MG CAPSULE PO SCH ×3 (10:29→20:30)
[2021-03-29] MEDS: TAMSULOSIN HCL 0.4 MG CAPSULE PO SCH (10:29)
[2021-03-29] MEDS: THIAMINE 100 MG TABLET PO SCH (10:29)
[2021-03-29] MEDS: NICOTINE 21 MG/24 HOUR PATCH TD SCH (10:29)
[2021-03-29] MEDS: AmLODIPine BESYLATE 5 MG TABLET PO SCH (10:29)
[2021-03-29] MEDS: BusPIRone HCL 15 MG TABLET PO SCH ×2 (10:29→20:31)
[2021-03-29] MEDS: PANTOPRAZOLE SODIUM 40 MG DR TABLET PO SCH (10:29)
[2021-03-29] MEDS: FOLIC ACID 1 MG TABLET PO SCH (10:29)
[2021-03-29] MEDS: QUEtiapine FUMARATE 100 MG TABLET PO SCH (10:30)
[2021-03-29] MEDS: MULTIVITAMINS, THERAPEUTIC TABLET PO SCH (10:30)
[2021-03-29] MEDS: SENNA/DOCUSATE SODIUM 8.6-50 MG TABLET PO SCH ×2 (10:30→20:31)
[2021-03-29] MEDS: DOCUSATE SODIUM 100 MG CAPSULE PO PRN (10:31)
[2021-03-29 15:28] VITALS: BP 125/64
[2021-03-29 20:15] VITALS: BP 121/79
[2021-03-29] MEDS: QUEtiapine FUMARATE 300 MG TABLET PO SCH (20:30)
[2021-03-30] MEDS: MELATONIN 5 MG TABLET PO PRN ×2 (01:27→20:31)
[2021-03-30] MEDS: CYCLOBENZAPRINE HCL 10 MG TABLET PO PRN ×3 (01:28→18:02)
[2021-03-30] MEDS: LEVOTHYROXINE SODIUM 75 MCG TABLET PO SCH (06:51)
[2021-03-30] MEDS: ACETAMINOPHEN 325 MG TABLET PO PRN ×4 (06:51→20:31)
[2021-03-30 07:24] VITALS: BP 118/80
[2021-03-30] MEDS: HEPARIN SODIUM,PORCINE 5,000 UNITS/ML VIAL SQ SCH ×4 (08:00→23:42)
[2021-03-30] MEDS: AmLODIPine BESYLATE 5 MG TABLET PO SCH (09:00)
[2021-03-30] MEDS: DOCUSATE SODIUM 100 MG CAPSULE PO PRN ×2 (09:38→20:34)
[2021-03-30] MEDS: THIAMINE 100 MG TABLET PO SCH (09:38)
[2021-03-30] MEDS: MULTIVITAMINS, THERAPEUTIC TABLET PO SCH (09:39)
[2021-03-30] MEDS: FOLIC ACID 1 MG TABLET PO SCH (09:39)
[2021-03-30] MEDS: PANTOPRAZOLE SODIUM 40 MG DR TABLET PO SCH (09:41)
[2021-03-30] MEDS: BENZOCAINE/MENTHOL LOZENGE PO PRN ×4 (09:41→20:32)
[2021-03-30] MEDS: QUEtiapine FUMARATE 100 MG TABLET PO SCH (09:42)
[2021-03-30] MEDS: GABAPENTIN 100 MG CAPSULE PO SCH ×3 (09:42→20:31)
[2021-03-30] MEDS: BusPIRone HCL 15 MG TABLET PO SCH ×2 (09:42→20:31)
[2021-03-30] MEDS: SENNA/DOCUSATE SODIUM 8.6-50 MG TABLET PO SCH ×2 (09:43→20:31)
[2021-03-30] MEDS: NICOTINE 21 MG/24 HOUR PATCH TD SCH (09:43)
[2021-03-30] MEDS: FLUTICASONE PROPIONATE 50 MCG/SPRAY 16 GM NASAL SPRAY NASAL SCH (09:53)
[2021-03-30] MEDS: TAMSULOSIN HCL 0.4 MG CAPSULE PO SCH (10:05)
[2021-03-30 16:00] VITALS: BP 118/84
[2021-03-30 19:57] VITALS: BP 123/79
[2021-03-30] MEDS: QUEtiapine FUMARATE 300 MG TABLET PO SCH (20:32)
[2021-03-31 05:00] VITALS: BP 126/77
[2021-03-31] MEDS: LEVOTHYROXINE SODIUM 75 MCG TABLET PO SCH (05:42)
[2021-03-31] MEDS: CYCLOBENZAPRINE HCL 10 MG TABLET PO PRN ×3 (05:42→23:34)
[2021-03-31] MEDS: ACETAMINOPHEN 325 MG TABLET PO PRN ×4 (05:42→20:31)
[2021-03-31 06:48] LABS: BASOPHILS % (AUTO) 0.3 % (0.0-2.0); EOSINOPHILS % (AUTO) 3.2 % (1.0-6.0); HEMOGLOBIN 11.6 g/dL (13.5-17.5); LYMPHOCYTES # (AUTO) 1.5 K/uL (1.0-4.8); LYMPHOCYTES % (AUTO) 23.2 % (22.0-44.0); MEAN CORPUSCULAR HGB CONC 33.3 G/dL (31.0-37.0); MEAN CORPUSCULAR VOLUME 81 fL (80-100); MONOCYTES # (AUTO) 0.9 K/uL (0.1-1.0); NEUTROPHILS # (AUTO) 3.8 K/uL (1.8-7.7); NEUTROPHILS % (AUTO) 59.3 % (40.0-70.0); PLATELET COUNT (AUTO) 373 K/uL (150-450); RED CELL DISTRIBUTION WIDTH 19.3 % (11.5-14.5)
[2021-03-31 06:56] LABS: ANION GAP 9 mmol/L (8-16); CALCIUM, TOTAL 9.4 mg/dL (8.8-10.5); CARBON DIOXIDE 25 mmol/L (22-29); CHLORIDE 101 mmol/L (98-107); CREATININE 0.87 mg/dL (0.60-1.30); GLOMERULAR FILTR. RATE CALC > 60 mL/min (>60); GLUCOSE,RANDOM 154 mg/dL (70-110); POTASSIUM 4.5 mmol/L (3.5-5.1); SODIUM SERUM 135 mmol/L (136-145); UREA NITROGEN, BLOOD 30 mg/dL (7-18)
[2021-03-31 08:00] VITALS: BP 92/61
[2021-03-31] MEDS: NICOTINE 21 MG/24 HOUR PATCH TD SCH (08:05)
[2021-03-31] MEDS: FOLIC ACID 1 MG TABLET PO SCH (08:05)
[2021-03-31] MEDS: MULTIVITAMINS, THERAPEUTIC TABLET PO SCH (08:05)
[2021-03-31] MEDS: SENNA/DOCUSATE SODIUM 8.6-50 MG TABLET PO SCH ×2 (08:05→20:30)
[2021-03-31] MEDS: QUEtiapine FUMARATE 100 MG TABLET PO SCH (08:05)
[2021-03-31] MEDS: THIAMINE 100 MG TABLET PO SCH (08:05)
[2021-03-31] MEDS: GABAPENTIN 100 MG CAPSULE PO SCH ×3 (08:05→20:30)
[2021-03-31] MEDS: AmLODIPine BESYLATE 5 MG TABLET PO SCH ×2 (08:06→11:07)
[2021-03-31] MEDS: BusPIRone HCL 15 MG TABLET PO SCH ×2 (08:06→20:30)
[2021-03-31] MEDS: PANTOPRAZOLE SODIUM 40 MG DR TABLET PO SCH (08:06)
[2021-03-31] MEDS: HEPARIN SODIUM,PORCINE 5,000 UNITS/ML VIAL SQ SCH ×3 (08:06→23:36)
[2021-03-31] MEDS: TAMSULOSIN HCL 0.4 MG CAPSULE PO SCH (08:06)
[2021-03-31] MEDS: FLUTICASONE PROPIONATE 50 MCG/SPRAY 16 GM NASAL SPRAY NASAL SCH (08:07)
[2021-03-31 11:06] VITALS: BP 146/96
[2021-03-31] MEDS: BENZOCAINE/MENTHOL LOZENGE PO PRN ×2 (11:07→20:31)
[2021-03-31 16:07] VITALS: BP 128/67
[2021-03-31 19:30] VITALS: BP 157/95
[2021-03-31] MEDS: MELATONIN 5 MG TABLET PO PRN (20:30)
[2021-03-31] MEDS: QUEtiapine FUMARATE 300 MG TABLET PO SCH (20:30)
[2021-03-31] MEDS: DOCUSATE SODIUM 100 MG CAPSULE PO PRN (20:30)
[2021-04-01] MEDS: LEVOTHYROXINE SODIUM 75 MCG TABLET PO SCH (06:08)
[2021-04-01] MEDS: ACETAMINOPHEN 325 MG TABLET PO PRN ×3 (06:09→20:05)
[2021-04-01 07:21] VITALS: BP 124/87
[2021-04-01] MEDS: HEPARIN SODIUM,PORCINE 5,000 UNITS/ML VIAL SQ SCH ×4 (08:00→23:59)
[2021-04-01] MEDS: FLUTICASONE PROPIONATE 50 MCG/SPRAY 16 GM NASAL SPRAY NASAL SCH (08:08)
[2021-04-01] MEDS: QUEtiapine FUMARATE 100 MG TABLET PO SCH (08:08)
[2021-04-01] MEDS: FOLIC ACID 1 MG TABLET PO SCH (08:09)
[2021-04-01] MEDS: PANTOPRAZOLE SODIUM 40 MG DR TABLET PO SCH (08:09)
[2021-04-01] MEDS: BusPIRone HCL 15 MG TABLET PO SCH ×2 (08:09→20:05)
[2021-04-01] MEDS: TAMSULOSIN HCL 0.4 MG CAPSULE PO SCH (08:09)
[2021-04-01] MEDS: SENNA/DOCUSATE SODIUM 8.6-50 MG TABLET PO SCH ×2 (08:09→20:05)
[2021-04-01] MEDS: MULTIVITAMINS, THERAPEUTIC TABLET PO SCH (08:09)
[2021-04-01] MEDS: DOCUSATE SODIUM 100 MG CAPSULE PO PRN ×2 (08:09→20:05)
[2021-04-01] MEDS: CYCLOBENZAPRINE HCL 10 MG TABLET PO PRN ×2 (08:10→20:05)
[2021-04-01] MEDS: THIAMINE 100 MG TABLET PO SCH (08:10)
[2021-04-01] MEDS: AmLODIPine BESYLATE 5 MG TABLET PO SCH (08:11)
[2021-04-01] MEDS: BENZOCAINE/MENTHOL LOZENGE PO PRN ×3 (08:13→20:34)
[2021-04-01] MEDS: NICOTINE 21 MG/24 HOUR PATCH TD SCH (08:14)
[2021-04-01] MEDS: GABAPENTIN 100 MG CAPSULE PO SCH ×3 (08:22→20:05)
[2021-04-01 15:01] VITALS: BP 132/82
[2021-04-01] MEDS: MELATONIN 5 MG TABLET PO PRN (20:05)
[2021-04-01] MEDS: QUEtiapine FUMARATE 300 MG TABLET PO SCH (20:05)
[2021-04-01 20:08] VITALS: BP 149/82
[2021-04-02] MEDS: CYCLOBENZAPRINE HCL 10 MG TABLET PO PRN ×2 (06:02→14:28)
[2021-04-02] MEDS: BENZOCAINE/MENTHOL LOZENGE PO PRN ×5 (06:02→20:08)
[2021-04-02] MEDS: ACETAMINOPHEN 325 MG TABLET PO PRN ×2 (06:02→12:19)
[2021-04-02] MEDS: LEVOTHYROXINE SODIUM 75 MCG TABLET PO SCH (06:02)
[2021-04-02 07:45] VITALS: BP 105/62
[2021-04-02] MEDS: HEPARIN SODIUM,PORCINE 5,000 UNITS/ML VIAL SQ SCH ×2 (08:00→15:54)
[2021-04-02] MEDS: FLUTICASONE PROPIONATE 50 MCG/SPRAY 16 GM NASAL SPRAY NASAL SCH (09:00)
[2021-04-02] MEDS: AmLODIPine BESYLATE 5 MG TABLET PO SCH (09:12)
[2021-04-02] MEDS: THIAMINE 100 MG TABLET PO SCH (09:12)
[2021-04-02] MEDS: NICOTINE 21 MG/24 HOUR PATCH TD SCH (09:12)
[2021-04-02] MEDS: MULTIVITAMINS, THERAPEUTIC TABLET PO SCH (09:12)
[2021-04-02] MEDS: GABAPENTIN 100 MG CAPSULE PO SCH ×3 (09:12→20:09)
[2021-04-02] MEDS: BusPIRone HCL 15 MG TABLET PO SCH ×2 (09:12→20:09)
[2021-04-02] MEDS: FOLIC ACID 1 MG TABLET PO SCH (09:12)
[2021-04-02] MEDS: QUEtiapine FUMARATE 100 MG TABLET PO SCH (09:12)
[2021-04-02] MEDS: SENNA/DOCUSATE SODIUM 8.6-50 MG TABLET PO SCH ×2 (09:13→20:08)
[2021-04-02] MEDS: PANTOPRAZOLE SODIUM 40 MG DR TABLET PO SCH (09:13)
[2021-04-02] MEDS: TAMSULOSIN HCL 0.4 MG CAPSULE PO SCH (09:13)
[2021-04-02 15:34] VITALS: BP 90/56
[2021-04-02] MEDS ORDERED: SODIUM CHLORIDE 0.9% 500 ML IV ONE (15:45)
[2021-04-02 15:49] VITALS: BP 97/69
[2021-04-02 18:12] VITALS: BP 117/76
[2021-04-02 19:19] VITALS: BP 126/87
[2021-04-02] MEDS: QUEtiapine FUMARATE 300 MG TABLET PO SCH (20:09)
[2021-04-02] MEDS: MELATONIN 5 MG TABLET PO PRN (20:20)
[2021-04-03 03:19] VITALS: BP 110/75
[2021-04-03] MEDS: CYCLOBENZAPRINE HCL 10 MG TABLET PO PRN ×3 (03:46→21:44)
[2021-04-03] MEDS: ACETAMINOPHEN 325 MG TABLET PO PRN ×3 (03:47→20:26)
[2021-04-03] MEDS: LEVOTHYROXINE SODIUM 75 MCG TABLET PO SCH (05:54)
[2021-04-03 07:43] VITALS: BP 122/88
[2021-04-03] MEDS: HEPARIN SODIUM,PORCINE 5,000 UNITS/ML VIAL SQ SCH ×4 (08:00→16:00)
[2021-04-03] MEDS: FLUTICASONE PROPIONATE 50 MCG/SPRAY 16 GM NASAL SPRAY NASAL SCH ×2 (09:00→10:09)
[2021-04-03] MEDS: QUEtiapine FUMARATE 100 MG TABLET PO SCH (09:44)
[2021-04-03] MEDS: SENNA/DOCUSATE SODIUM 8.6-50 MG TABLET PO SCH ×2 (09:44→20:27)
[2021-04-03] MEDS: THIAMINE 100 MG TABLET PO SCH (09:44)
[2021-04-03] MEDS: FOLIC ACID 1 MG TABLET PO SCH (09:44)
[2021-04-03] MEDS: GABAPENTIN 100 MG CAPSULE PO SCH ×3 (09:44→20:27)
[2021-04-03] MEDS: PANTOPRAZOLE SODIUM 40 MG DR TABLET PO SCH (09:55)
[2021-04-03] MEDS: BusPIRone HCL 15 MG TABLET PO SCH ×2 (09:55→20:27)
[2021-04-03] MEDS: AmLODIPine BESYLATE 5 MG TABLET PO SCH (09:55)
[2021-04-03] MEDS: TAMSULOSIN HCL 0.4 MG CAPSULE PO SCH (09:56)
[2021-04-03] MEDS: NICOTINE 21 MG/24 HOUR PATCH TD SCH (09:56)
[2021-04-03] MEDS: MULTIVITAMINS, THERAPEUTIC TABLET PO SCH (09:56)
[2021-04-03] MEDS: BENZOCAINE/MENTHOL LOZENGE PO PRN (10:11)
[2021-04-03 16:12] VITALS: BP 126/79
[2021-04-03] MEDS: MELATONIN 5 MG TABLET PO PRN (20:26)
[2021-04-03] MEDS: QUEtiapine FUMARATE 300 MG TABLET PO SCH (20:27)
[2021-04-03 20:59] VITALS: BP 119/97
[2021-04-04] MEDS: LEVOTHYROXINE SODIUM 75 MCG TABLET PO SCH (06:12)
[2021-04-04] MEDS: ACETAMINOPHEN 325 MG TABLET PO PRN ×3 (06:16→20:03)
[2021-04-04] MEDS: CYCLOBENZAPRINE HCL 10 MG TABLET PO PRN ×2 (06:23→15:18)
[2021-04-04 08:29] VITALS: BP 124/81
[2021-04-04] MEDS: SENNA/DOCUSATE SODIUM 8.6-50 MG TABLET PO SCH ×2 (09:22→20:02)
[2021-04-04] MEDS: HEPARIN SODIUM,PORCINE 5,000 UNITS/ML VIAL SQ SCH ×3 (09:22→15:18)
[2021-04-04] MEDS: GABAPENTIN 100 MG CAPSULE PO SCH ×3 (09:22→20:01)
[2021-04-04] MEDS: BENZOCAINE/MENTHOL LOZENGE PO PRN (09:22)
[2021-04-04] MEDS: PANTOPRAZOLE SODIUM 40 MG DR TABLET PO SCH (09:22)
[2021-04-04] MEDS: QUEtiapine FUMARATE 100 MG TABLET PO SCH (09:22)
[2021-04-04] MEDS: BusPIRone HCL 15 MG TABLET PO SCH ×2 (09:22→20:02)
[2021-04-04] MEDS: FLUTICASONE PROPIONATE 50 MCG/SPRAY 16 GM NASAL SPRAY NASAL SCH (09:23)
[2021-04-04] MEDS: THIAMINE 100 MG TABLET PO SCH (09:23)
[2021-04-04] MEDS: MULTIVITAMINS, THERAPEUTIC TABLET PO SCH (09:23)
[2021-04-04] MEDS: TAMSULOSIN HCL 0.4 MG CAPSULE PO SCH (09:23)
[2021-04-04] MEDS: FOLIC ACID 1 MG TABLET PO SCH (09:23)
[2021-04-04] MEDS: AmLODIPine BESYLATE 5 MG TABLET PO SCH (09:23)
[2021-04-04] MEDS: NICOTINE 21 MG/24 HOUR PATCH TD SCH (09:23)
[2021-04-04 15:33] VITALS: BP 137/96
[2021-04-04] MEDS ORDERED: FLUT16H NASAL (17:44)
[2021-04-04] MEDS ORDERED: FOLI-130 PO (17:44)
[2021-04-04] MEDS ORDERED: GABA-1216 PO (17:45)
[2021-04-04] MEDS ORDERED: MULT-1239 PO (17:47)
[2021-04-04] MEDS ORDERED: PANT-31 PO (17:48)
[2021-04-04] MEDS ORDERED: QUET100T PO (17:48)
[2021-04-04] MEDS ORDERED: QUET300T2 PO (17:49)
[2021-04-04] MEDS ORDERED: THIA100T80 PO (17:49)
[2021-04-04 18:41] VITALS: BP 128/89
[2021-04-04] MEDS: QUEtiapine FUMARATE 300 MG TABLET PO SCH (19:00)
[2021-04-04 19:19] VITALS: BP 145/93
== END 2021-04-04 20:20 | DRG 52 ==
LOC: EMS 21:57 → 6N 12-26 16:12 → 6S 12-26 17:40 → 6N 12-27 00:17 → 6S 12-27 15:00 → 6N 12-27 17:12 → 6S 02-24 08:03 → 6N 03-29 17:39
PROVIDERS: ADMIT Internal Medicine; ATTEND Internal Medicine
DX: G92.8 Other toxic encephalopathy (principal); U07.1 COVID-19; K72.10 Chronic hepatic failure without coma; E44.0 Moderate protein-calorie malnutrition; D63.8 Anemia in other chronic diseases classified elsewhere; F25.9 Schizoaffective disorder, unspecified; I11.9 Hypertensive heart disease without heart failure; F29 Unspecified psychosis not due to a substance or known physiological condition; N39.0 Urinary tract infection, site not specified; K21.9 Gastro-esophageal reflux disease without esophagitis; E03.9 Hypothyroidism, unspecified; G62.9 Polyneuropathy, unspecified; N40.0 Benign prostatic hyperplasia without lower urinary tract symptoms; G89.4 Chronic pain syndrome; R53.82 Chronic fatigue, unspecified; B96.20 Unspecified Escherichia coli [E. coli] as the cause of diseases classified elsewhere; Z16.12 Extended spectrum beta lactamase (ESBL) resistance; Z53.20 Procedure and treatment not carried out because of patient's decision for unspecified reasons; M19.90 Unspecified osteoarthritis, unspecified site; R62.7 Adult failure to thrive; Z99.3 Dependence on wheelchair; Z87.891 Personal history of nicotine dependence; Z68.23 Body mass index [BMI] 23.0-23.9, adult; Z91.19 Patient's noncompliance with other medical treatment and regimen; Z51.5 Encounter for palliative care; Z85.05 Personal history of malignant neoplasm of liver
CPT/HCPCS: 70450; 71045; 74176; 80048; 80053; 81001; 82140; 82550; 83735; 84100; 84145; 84439; 84443; 84484; 85025; 85610; 85730; 87077; 87081; 87086; 87186; 93005; 97162; 97163; 97166; 97530; 97535; 99285; G0480; J0696; J1200; J1630; J1642; J1644; J1885; J2060; J2270; J2405; J3411; J3475; J3490; J7030; J7040; J7050; Q9967; 36415-L1; 36415-TC; U0003

== ENCOUNTER 2023-07-26 07:07 | Inpatient (IN) | payer MEDICARE, OTHER ==
[~2023-07-26] VITALS: Ht 182.9 cm; Wt 81.8 kg
[~2023-07-26 07:07] MED LIST: AMLO-257 PO; BUSP15 PO; FLUT16SP NASAL; FOLI-130 PO; GABA-1216 PO; LEVO75 PO; MULT-1239 PO; PANT-31 PO; QUET100T PO; QUET300T2 PO; TAMS0.4C94 PO; THIA100T80 PO
[2023-07-26] MEDS ORDERED: 0.9% SODIUM CHLORIDE 10 ML SYRINGE IVP PRN (08:00)
[2023-07-26] MEDS: SODIUM CHLORIDE 0.9% 2,350 ML IV ONE (08:03)
[2023-07-26] MEDS: CefTRIAXone 1 GM/DEXTROSE 50 ML IV ONE (08:18)
[2023-07-26 08:34] LABS: BASOPHILS % (AUTO) 0.4 % (0.0-2.0); EOSINOPHILS % (AUTO) 0.3 % (1.0-6.0); HEMATOCRIT 39.2 % (41-53); HEMOGLOBIN 12.9 g/dL (13.5-17.5); LYMPHOCYTES # (AUTO) 1.7 K/uL (1.0-4.8); LYMPHOCYTES % (AUTO) 11.9 % (22.0-44.0); MEAN CORPUSCULAR HEMOGLOBIN 28.6 pg (26.0-34.0); MEAN CORPUSCULAR VOLUME 87 fL (80-100); MONOCYTES % (AUTO) 6.7 % (2.0-9.0); NEUTROPHILS # (AUTO) 11.8 K/uL (1.8-7.7); NEUTROPHILS % (AUTO) 80.7 % (40.0-70.0); PLATELET COUNT (AUTO) 476 K/uL (150-450); RED BLOOD CELL COUNT(AUTO) 4.52 MIL/uL (4.50-5.90); RED CELL DISTRIBUTION WIDTH 14.8 % (11.5-14.5); WHITE BLOOD COUNT (AUTO) 14.6 K/uL (4.5-11.0)
[2023-07-26 08:37] LABS: COVID AG,FIA SOURCE NASAL SWAB
[2023-07-26 08:42] LABS: APPEARANCE,URINE HAZY (CLEAR); BILIRUBIN,URINE NEGATIVE (NEGATIVE); COLOR,URINE LIGHT YELLOW (YELLOW); GLUCOSE, URINE (UA) NEGATIVE (NEGATIVE); KETONES,URINE NEGATIVE (NEGATIVE); LEUKOCYTE ESTERASE ,URINE LARGE (NEGATIVE); NITRATE,URINE POSITIVE (NEGATIVE); OCCULT BLOOD,URINE TRACE (NEGATIVE); PROTEIN,URINE 30-70 mg/dL (NEGATIVE); SPECIFIC GRAVITIY, URINE 1.019 (1.003-1.030); UROBILINOGEN,URINE <=1.0 mg/dL (<=1.0)
[2023-07-26 08:47] LABS: TROPONIN I-HIGH SENSITIVITY 6 ng/L (<76)
[2023-07-26 08:52] LABS: ANION GAP 14 mmol/L (8-16); CALCIUM, TOTAL 9.3 mg/dL (8.8-10.5); CARBON DIOXIDE 22 mmol/L (22-29); CHLORIDE 98 mmol/L (98-107); CREATININE 0.75 mg/dL (0.60-1.30); GLOMERULAR FILTR. RATE CALC > 60 mL/min (>60); GLUCOSE,RANDOM 98 mg/dL (70-110); SODIUM SERUM 134 mmol/L (136-145); UREA NITROGEN, BLOOD 18 mg/dL (7-18)
[2023-07-26 08:54] LABS: ALANINE AMINOTRANSFERASE 22 U/L (12-78); ALBUMIN 3.6 g/dL (3.4-5.0); ALKALINE PHOSPHATASE 134 U/L (46-116); ASPARTATE AMINOTRANSFERASE 25 U/L (15-37); BILIRUBIN,TOTAL 0.3 mg/dL (0.1-1.0); INR 1.1 (0.9-1.1); LIPASE 20 U/L (16-77); PROTHROMBIN TIME 11.9 SEC (9.4-11.6); TOTAL PROTEIN, SERUM 9.4 g/dL (6.4-8.2)
[2023-07-26 08:54] LABS: ALCOHOL, URINE DRUG SCREEN POSITIVE (NEGATIVE); AMPHET/METH SCREEN,URINE NEGATIVE (NEGATIVE); BARBITURATE SCREEN, URINE NEGATIVE (NEGATIVE); BENZODIAZEPINES SCREEN,URINE NEGATIVE (NEGATIVE); CANNABINOID SCREEN,URINE NEGATIVE (NEGATIVE); COCAINE SCREEN,URINE NEGATIVE (NEGATIVE); METHADONE SCREEN, URINE NEGATIVE (NEGATIVE); OPIATE SCREEN,URINE NEGATIVE (NEGATIVE); PHENCYCLIDINE SCREEN,URINE NEGATIVE (NEGATIVE)
[2023-07-26 08:55] LABS: SARS-COV2 (COVID) ANTIGEN,FIA Negative (Negative)
[2023-07-26 09:00] LABS: RBC,URINE 0-2 /HPF (0-2); WBC,URINE 26-50 /HPF (0-5)
[2023-07-26 09:01] LABS: BACTERIA,URINE Moderate /HPF (None Seen); SQUAMOUS EPITHELIAL CELL,UR None Seen /LPF (None Seen)
[2023-07-26 09:09] LABS: LACTIC ACID 4.3 mmol/L (0.4-2.0)
[2023-07-26] MEDS: MAGNESIUM SULFATE 2 GM, MVI, ADULT NO.1 WITH VIT K 10 ML, THIAMINE 100 MG, FOLIC ACID 1... IV ONE (09:14)
[2023-07-26 09:20] LABS: B-TYPE NATRIURETIC PEPTIDE 8 pg/mL (0-100)
[2023-07-26] MEDS ORDERED: GABA800T9 PO (10:16)
[2023-07-26] MEDS ORDERED: QUET300T19 PO (10:16)
[2023-07-26] MEDS ORDERED: LISI30TA4 PO (10:16)
[2023-07-26 12:27] VITALS: PULSE 95; RESP 19; TEMP 98.9
[2023-07-26] MEDS: *CLINICAL-LEVOFLOXACIN IVPB DOSING CLINICAL ONE (12:44)
[2023-07-26] MEDS ORDERED: LABETALOL HCL 5 MG/ML 20 ML VIAL IVP PRN (12:45)
[2023-07-26] MEDS ORDERED: ACETAMINOPHEN 325 MG TABLET PO PRN (12:45)
[2023-07-26] MEDS ORDERED: MORPHINE SULFATE 2 MG/ML SYRINGE IVP PRN (12:45)
[2023-07-26] MEDS ORDERED: MULT-413 PO (12:50)
[2023-07-26] MEDS ORDERED: MOME17SP11 NASAL (12:50)
[2023-07-26] MEDS ORDERED: SENN-277 PO (12:50)
[2023-07-26] MEDS: AmLODIPine BESYLATE 5 MG TABLET PO SCH (12:57)
[2023-07-26 14:00] VITALS: BP 156/103; PULSE 81; RESP 18; TEMP 98.8
[2023-07-26] MEDS: HYDROCODONE/ACETAMINOPHEN 5-325 MG TABLET PO PRN (14:39)
[2023-07-26 15:54] VITALS: RESP 18
[2023-07-26] MEDS: SODIUM CHLORIDE 0.9% 1,000 ML IV ONE (15:54)
[2023-07-26] MEDS: HEPARIN SODIUM,PORCINE 5,000 UNITS/ML VIAL SQ SCH (17:06)
[2023-07-26] MEDS: HEPARIN SODIUM,PORCINE 100 UNITS/ML 5 ML VIAL IVP ONE (17:49)
[2023-07-26] MEDS ORDERED: QUET300T5 PO (19:30)
[2023-07-26] MEDS ORDERED: ACET-66 PO (19:30)
[2023-07-26] MEDS ORDERED: OXYC10TA48 PO (19:30)
[2023-07-26] MEDS ORDERED: QUET50TA15 PO (19:30)
[2023-07-26] MEDS ORDERED: BUSP15 PO (19:30)
[2023-07-26] MEDS ORDERED: TRAZ-184 PO (19:30)
[2023-07-26 20:53] VITALS: BP 146/94; PULSE 79; RESP 18; TEMP 97.8
[2023-07-26] MEDS: DOCUSATE SODIUM 100 MG CAPSULE PO SCH (20:56)
[2023-07-26] MEDS: ZOLPIDEM TARTRATE 5 MG TABLET PO PRN (21:25)
[2023-07-27 04:41] VITALS: BP 155/87; PULSE 71; RESP 18; TEMP 98.1
[2023-07-27] MEDS: LEVOTHYROXINE SODIUM 75 MCG TABLET PO SCH (06:32)
[2023-07-27 07:38] LABS: BASOPHILS % (AUTO) 0.9 % (0.0-2.0); EOSINOPHILS % (AUTO) 0.8 % (1.0-6.0); HEMATOCRIT 39.9 % (41-53); HEMOGLOBIN 13.1 g/dL (13.5-17.5); LYMPHOCYTES % (AUTO) 16.9 % (22.0-44.0); MEAN CORPUSCULAR HEMOGLOBIN 28.5 pg (26.0-34.0); MEAN CORPUSCULAR HGB CONC 32.9 G/dL (31.0-37.0); MEAN CORPUSCULAR VOLUME 87 fL (80-100); MONOCYTES # (AUTO) 1.2 K/uL (0.1-1.0); MONOCYTES % (AUTO) 10.5 % (2.0-9.0); NEUTROPHILS # (AUTO) 8.2 K/uL (1.8-7.7); NEUTROPHILS % (AUTO) 70.9 % (40.0-70.0); PLATELET COUNT (AUTO) 456 K/uL (150-450); RED BLOOD CELL COUNT(AUTO) 4.61 MIL/uL (4.50-5.90); RED CELL DISTRIBUTION WIDTH 14.7 % (11.5-14.5); WHITE BLOOD COUNT (AUTO) 11.5 K/uL (4.5-11.0)
[2023-07-27 08:12] VITALS: BP 154/76; PULSE 76; RESP 19; TEMP 98.1
[2023-07-27] MEDS: PANTOPRAZOLE SODIUM 40 MG DR TABLET PO SCH (08:16)
[2023-07-27] MEDS: LEVOFLOXACIN 750 MG/D5% WATER 150 ML IV SCH (08:16)
[2023-07-27] MEDS: FLUTICASONE PROPIONATE 50 MCG/SPRAY 16 GM NASAL SPRAY NASAL SCH (08:17)
[2023-07-27] MEDS: TAMSULOSIN HCL 0.4 MG CAPSULE PO SCH (08:17)
[2023-07-27 08:42] LABS: ANION GAP 11 mmol/L (8-16); CALCIUM, TOTAL 9.6 mg/dL (8.8-10.5); CARBON DIOXIDE 25 mmol/L (22-29); CHLORIDE 100 mmol/L (98-107); CREATININE 0.69 mg/dL (0.60-1.30); GLOMERULAR FILTR. RATE CALC > 60 mL/min (>60); GLUCOSE,RANDOM 92 mg/dL (70-110); POTASSIUM 4.1 mmol/L (3.5-5.1); SODIUM SERUM 135 mmol/L (136-145); UREA NITROGEN, BLOOD 10 mg/dL (7-18)
[2023-07-27] MEDS ORDERED: AmLODIPine BESYLATE 5 MG TABLET PO SCH (09:00)
[2023-07-27] MEDS: BusPIRone HCL 15 MG TABLET PO SCH (15:51)
[2023-07-27 16:55] VITALS: BP 146/85; PULSE 89; RESP 19; TEMP 98.1
[2023-07-27 18:25] LABS: LACTIC ACID 1.2 mmol/L (0.4-2.0)
[2023-07-27 20:17] VITALS: BP 148/83; PULSE 81; RESP 19; TEMP 97.7
[2023-07-27] MEDS: DICLOFENAC SODIUM 1% 100 GM GEL [4GM] TP SCH (20:41)
[2023-07-27] MEDS: QUEtiapine FUMARATE 100 MG TABLET PO SCH (20:41)
[2023-07-27] MEDS: SENNOSIDES/DOCUSATE SODIUM 8.6-50 MG TABLET PO SCH (20:41)
[2023-07-27] MEDS: ONDANSETRON HCL 4 MG/2 ML VIAL IVP PRN (20:44)
[2023-07-28 05:02] VITALS: BP 141/81; PULSE 78; RESP 18; TEMP 97.9
[2023-07-28 07:58] LABS: BASOPHILS % (AUTO) 0.7 % (0.0-2.0); EOSINOPHILS % (AUTO) 0.6 % (1.0-6.0); HEMATOCRIT 40.5 % (41-53); HEMOGLOBIN 13.6 g/dL (13.5-17.5); LYMPHOCYTES # (AUTO) 1.9 K/uL (1.0-4.8); LYMPHOCYTES % (AUTO) 22.9 % (22.0-44.0); MEAN CORPUSCULAR HEMOGLOBIN 29.1 pg (26.0-34.0); MEAN CORPUSCULAR HGB CONC 33.5 G/dL (31.0-37.0); MEAN CORPUSCULAR VOLUME 87 fL (80-100); MONOCYTES % (AUTO) 11.3 % (2.0-9.0); NEUTROPHILS # (AUTO) 5.5 K/uL (1.8-7.7); NEUTROPHILS % (AUTO) 64.5 % (40.0-70.0); PLATELET COUNT (AUTO) 355 K/uL (150-450); RED BLOOD CELL COUNT(AUTO) 4.66 MIL/uL (4.50-5.90); RED CELL DISTRIBUTION WIDTH 14.3 % (11.5-14.5); WHITE BLOOD COUNT (AUTO) 8.5 K/uL (4.5-11.0)
[2023-07-28 08:16] LABS: ANION GAP 10 mmol/L (8-16); CALCIUM, TOTAL 9.6 mg/dL (8.8-10.5); CARBON DIOXIDE 26 mmol/L (22-29); CHLORIDE 99 mmol/L (98-107); GLOMERULAR FILTR. RATE CALC > 60 mL/min (>60); GLUCOSE,RANDOM 97 mg/dL (70-110); POTASSIUM 3.7 mmol/L (3.5-5.1); SODIUM SERUM 135 mmol/L (136-145); UREA NITROGEN, BLOOD 12 mg/dL (7-18)
[2023-07-28 08:22] VITALS: BP 137/90; PULSE 83; RESP 18; TEMP 97.7
[2023-07-28] MEDS ORDERED: SODIUM CHLORIDE 0.9% 500 ML IV ONE (09:37)
[2023-07-28 15:51] VITALS: BP 133/90; PULSE 100; RESP 18; TEMP 98.1
[2023-07-28] MEDS: MAGNESIUM HYDROXIDE SUSPENSION 30 ML UDCUP PO PRN (16:07)
[2023-07-28 19:22] VITALS: BP 107/70; PULSE 96; RESP 18; TEMP 97.5
[2023-07-29 05:23] VITALS: BP 126/78; PULSE 94; RESP 18; TEMP 97.8
[2023-07-29 06:47] LABS: BASOPHILS % (AUTO) 0.6 % (0.0-2.0); EOSINOPHILS % (AUTO) 1.9 % (1.0-6.0); HEMATOCRIT 36.9 % (41-53); HEMOGLOBIN 12.4 g/dL (13.5-17.5); LYMPHOCYTES # (AUTO) 2.6 K/uL (1.0-4.8); LYMPHOCYTES % (AUTO) 29.5 % (22.0-44.0); MEAN CORPUSCULAR HGB CONC 33.7 G/dL (31.0-37.0); MEAN CORPUSCULAR VOLUME 86 fL (80-100); MONOCYTES # (AUTO) 1.1 K/uL (0.1-1.0); MONOCYTES % (AUTO) 12.6 % (2.0-9.0); NEUTROPHILS # (AUTO) 4.9 K/uL (1.8-7.7); NEUTROPHILS % (AUTO) 55.4 % (40.0-70.0); PLATELET COUNT (AUTO) 330 K/uL (150-450); RED CELL DISTRIBUTION WIDTH 14.6 % (11.5-14.5); WHITE BLOOD COUNT (AUTO) 8.8 K/uL (4.5-11.0)
[2023-07-29 06:52] LABS: ANION GAP 9 mmol/L (8-16); CALCIUM, TOTAL 9.7 mg/dL (8.8-10.5); CARBON DIOXIDE 26 mmol/L (22-29); CHLORIDE 100 mmol/L (98-107); CREATININE 0.81 mg/dL (0.60-1.30); GLOMERULAR FILTR. RATE CALC > 60 mL/min (>60); GLUCOSE,RANDOM 116 mg/dL (70-110); POTASSIUM 3.4 mmol/L (3.5-5.1); SODIUM SERUM 135 mmol/L (136-145); UREA NITROGEN, BLOOD 16 mg/dL (7-18)
[2023-07-29 08:40] VITALS: BP 132/99; PULSE 86; RESP 18; TEMP 97.6
[2023-07-29] MEDS: POTASSIUM CHLORIDE 20 MEQ ER TABLET PO ONE (15:25)
[2023-07-29 15:36] VITALS: BP 116/70; PULSE 94; RESP 18; TEMP 98
[2023-07-29 20:05] VITALS: BP 148/93; PULSE 90; RESP 18; TEMP 97.7
[2023-07-30 06:50] LABS: BASOPHILS % (AUTO) 0.8 % (0.0-2.0); EOSINOPHILS % (AUTO) 3.3 % (1.0-6.0); HEMATOCRIT 36.4 % (41-53); HEMOGLOBIN 12.1 g/dL (13.5-17.5); LYMPHOCYTES # (AUTO) 2.5 K/uL (1.0-4.8); LYMPHOCYTES % (AUTO) 26.1 % (22.0-44.0); MEAN CORPUSCULAR HEMOGLOBIN 28.7 pg (26.0-34.0); MEAN CORPUSCULAR HGB CONC 33.3 G/dL (31.0-37.0); MEAN CORPUSCULAR VOLUME 86 fL (80-100); MONOCYTES % (AUTO) 10.7 % (2.0-9.0); NEUTROPHILS # (AUTO) 5.6 K/uL (1.8-7.7); NEUTROPHILS % (AUTO) 59.1 % (40.0-70.0); PLATELET COUNT (AUTO) 318 K/uL (150-450); RED BLOOD CELL COUNT(AUTO) 4.22 MIL/uL (4.50-5.90); RED CELL DISTRIBUTION WIDTH 14.9 % (11.5-14.5); WHITE BLOOD COUNT (AUTO) 9.5 K/uL (4.5-11.0)
[2023-07-30 06:59] LABS: ANION GAP 10 mmol/L (8-16); CALCIUM, TOTAL 9.7 mg/dL (8.8-10.5); CARBON DIOXIDE 25 mmol/L (22-29); CHLORIDE 102 mmol/L (98-107); CREATININE 0.88 mg/dL (0.60-1.30); GLOMERULAR FILTR. RATE CALC > 60 mL/min (>60); GLUCOSE,RANDOM 113 mg/dL (70-110); POTASSIUM 3.8 mmol/L (3.5-5.1); SODIUM SERUM 137 mmol/L (136-145); UREA NITROGEN, BLOOD 20 mg/dL (7-18)
[2023-07-30 07:48] VITALS: BP 143/79; PULSE 93; RESP 18; TEMP 98.7
[2023-07-30] MEDS: LACTULOSE 20 GM/30 ML SOLUTION UDCUP PO PRN (11:44)
[2023-07-30] MEDS ORDERED: QUET50TA PO (14:09)
[2023-07-30] MEDS ORDERED: ACET-784 PO (14:12)
[2023-07-30] MEDS ORDERED: BISA10SU11 PR (14:12)
[2023-07-30] MEDS ORDERED: MAGN-169 PO (14:13)
[2023-07-30] MEDS ORDERED: ZOLP-280 PO (14:14)
[2023-07-30] MEDS ORDERED: LEVO750P7 IV (14:17)
[2023-07-30] MEDS: BISACODYL 10 MG RECTAL RECTAL SUPPOSITORY PR PRN (14:39)
[2023-07-30 16:19] VITALS: BP 126/77; PULSE 86; RESP 18; TEMP 97.3
== END 2023-07-30 19:13 | DRG 871 ==
LOC: EMS 07:07 → 6S 09:51
PROVIDERS: ADMIT Internal Medicine; ATTEND Internal Medicine
PROC: 05HB33Z Insertion of Infusion Device into Right Basilic Vein, Percutaneous Approach (ICD-10-PCS; principal; 2023-07-26)
PROC: B54MZZA Ultrasonography of Right Upper Extremity Veins, Guidance (ICD-10-PCS; 2023-07-26)
DX: A41.9 Sepsis, unspecified organism (principal); G93.41 Metabolic encephalopathy; N39.0 Urinary tract infection, site not specified; F10.139 Alcohol abuse with withdrawal, unspecified; E03.9 Hypothyroidism, unspecified; F03.C0 Unspecified dementia, severe, without behavioral disturbance, psychotic disturbance, mood disturbance, and anxiety; F25.9 Schizoaffective disorder, unspecified; B96.5 Pseudomonas (aeruginosa) (mallei) (pseudomallei) as the cause of diseases classified elsewhere; I11.0 Hypertensive heart disease with heart failure; I50.9 Heart failure, unspecified; J45.909 Unspecified asthma, uncomplicated; K21.9 Gastro-esophageal reflux disease without esophagitis; F17.210 Nicotine dependence, cigarettes, uncomplicated; Y90.6 Blood alcohol level of 120-199 mg/100 ml; R65.20 Severe sepsis without septic shock; K70.30 Alcoholic cirrhosis of liver without ascites; Z20.822 Contact with and (suspected) exposure to COVID-19; M17.11 Unilateral primary osteoarthritis, right knee; Z85.05 Personal history of malignant neoplasm of liver; Z99.3 Dependence on wheelchair; Z79.899 Other long term (current) drug therapy; Z92.21 Personal history of antineoplastic chemotherapy
CPT/HCPCS: 36245; 36569; 51702; 71045; 76937; 80048; 80053; 80307; 81001; 83605; 83690; 83735; 83880; 84132; 84145; 84484; 85025; 85610; 87040; 87086; 87186; 93005; 97163; 97530; 99285; G0480; J0696; J1642; J1644; J1956; J2405; J3411; J3475; J3490; J7030; J7040; 36415-L1; 36415-TC